=== PATIENT | female | born 1960 | race Caucasian/White ===

== ENCOUNTER 2020-06-25 09:28 | Outpatient (CLI) | payer MEDICARE, OTHER, SELFPAY ==
--- NOTE | ~2020-06-25 | MR_ITS ---
EXAMINATION: MR lumbar spine wo con DATE: 06/25/2020 10:53 INDICATION: Low back pain radiating down the right leg. TECHNIQUE: Magnetic resonance imaging (MRI) of the lumbar spine was performed without intravenous con trast. Sequences included sagittal T2-weighted FSE, sagittal T2-weighted FS FSE, sagittal T1-weighted FSE, and axial T2-weighted FSE. COMPARISON: Lumbar spine MRI 07/12/2016 FINDINGS: There is 15 degrees dextroscoliosis of lumbar spine. There is 3 mm retrolisthesis of L3 on L4. Vertebral body heights are normal. There is mildly decreased disc height at L3-L4. The distal spi nal cord signal intensity is normal. The conus medullaris is at L1. The following disc levels are spe cifically discussed: L1-L2: The disc does not extend beyond the endplate margin. There is mild bilateral facet joint osteo arthritis. There is no neural foraminal stenosis. There is no central canal stenosis. L2-L3: The disc is bulging. There is mild bilateral facet joint osteoarthritis. There is mild bilater al neural foraminal stenosis. There is mild central canal stenosis. L3-L4: The disc is bulging. There is mild bilateral facet joint osteoarthritis. There is mild bilater al neural foraminal stenosis. There is mild central canal stenosis. L4-L5: The disc is bulging. There is moderate bilateral facet joint osteoarthritis. There is mild morelia ateral neural foraminal stenosis. There is mild central canal stenosis. L5-S1: The disc is bulging. There is moderate bilateral facet joint osteoarthritis. There is no neura l foraminal stenosis. There is mild central canal stenosis. IMPRESSION: 1. Mild lumbar spondylosis, stable from 07/12/2016. Reviewed, dictated and finalized at location A. CASER
--- NOTE | ~2020-06-25 | MR_ITS ---
EXAMINATION: MR thoracic spine wo con DATE: 06/25/2020 10:50 INDICATION: Mid and low back pain. TECHNIQUE: Magnetic resonance imaging (MRI) of the thoracic spine was performed without intravenous c ontrast. Sagittal localizer T1-weighted FSE of the cervical spine was obtained. Thoracic spine sequen jose included sagittal T2-weighted FSE, sagittal T1-weighted FSE, sagittal T2-weighted FS FSE, and axi al T2-weighted FSE. COMPARISON: Thoracic spine MRI 07/29/2016 FINDINGS: There is 6 degrees dextrocurvature of thoracic spine and 15 degrees levoscoliosis of thorac olumbar spine. Vertebral body heights and intervertebral disc heights are normal. There is a hemangio ma in T3 vertebral body and left pedicle. The discs do not extend beyond the endplate margins. There is multilevel mild facet joint osteoarthritis. At T9-T10, there is severe left facet joint osteoarthr itis with mild left neural foraminal stenosis. No central canal stenosis. The spinal cord signal inte nsity is normal. The conus medullaris is at L1. IMPRESSION: 1. Mild thoracic spondylosis. 2. Thoracolumbar levoscoliosis. Reviewed, dictated and finalized at location A. GE PRESS OPERATOR
== END 2020-06-25 09:29 | disposition home or self-care (01) ==
PROVIDERS: PCP Chiropractor; Visit Provider Chiropractor
DX: M47.815 Spondylosis without myelopathy or radiculopathy, thoracolumbar region (principal); M47.817 Spondylosis without myelopathy or radiculopathy, lumbosacral region; M48.07 Spinal stenosis, lumbosacral region
CPT/HCPCS: 72146; 72148

== ENCOUNTER 2021-06-09 13:05 | Emergency (ER) | payer MEDICARE, OTHER, SELFPAY ==
[2021-06-09 13:20] VITALS: BP 114/70; PULSE 72; RESP 18; TEMP 36.5; O2SAT 100
--- NOTE | 2021-06-09 16:18 | PC.NURSE ---
Patient walked out of ED without difficulty and in no distress after talking with her PCP over the phone.
== END 2021-06-10 04:27 | disposition left against medical advice (07) ==
PROVIDERS: PCP Chiropractor
DX: Z53.21 Procedure and treatment not carried out due to patient leaving prior to being seen by health care provider (principal)
CPT/HCPCS: 99199

== ENCOUNTER → 2022-02-04 13:11 | Outpatient (CLI) | payer MEDICARE, OTHER, SELFPAY ==
--- NOTE | ~2022-02-04 | XR_ITS ---
[[id number] ] INDICATION: Rib pain after fall TECHNIQUE: Frontal projection of the upper ribs, frontal projection of the lower ribs, oblique projec tion of all the ribs, frontal inspiratory chest x-ray for interpretation. FINDINGS: There is a small left apical pneumothorax. There is a left eighth rib fracture. There is ex tensive subcutaneous emphysema of the neck and left chest wall. The left lower ribs are difficult to visualize due to subcutaneous emphysema. IMPRESSION: 1: Small left apical pneumothorax. 2: Acute mildly displaced left eighth rib fracture. 3: Extensive subcutaneous emphysema of the neck, supraclavicular locations in left chest wall. Reviewed, dictated and finalized at location B.
== END ==
PROVIDERS: PCP Physician Assistant; Visit Provider Physician Assistant
DX: R07.81 Pleurodynia (principal); J93.83 Other pneumothorax; S22.32XA Fracture of one rib, left side, initial encounter for closed fracture; J43.9 Emphysema, unspecified
CPT/HCPCS: 71111

== ENCOUNTER 2022-02-04 14:50 | Inpatient (IN) | payer MEDICARE, OTHER, SELFPAY ==
[2022-02-04] VITALS (9 sets, daily range): BP systolic 145–164; BP diastolic 60–91; PULSE 65–72; RESP 16–20; TEMP 36.4–37; O2SAT 97–100; BMI 21.1
--- NOTE | ~2022-02-04 | XR_ITS ---
XR chest 2V 02/06/2022 07:55 Indication: Follow-up left pneumothorax Procedure: 2 view chest Comparison: 02/05/2022 and 02/04/2022 Findings: There is a possible small residual left apical pneumothorax. There is improving subcutaneou s emphysema of the left chest wall. Left eighth rib fracture reidentified. Heart size normal. Small l eft pleural effusion/hemothorax. There is atherosclerosis. Impression: 1: Possible small residual left apical pneumothorax. 2: Left eighth rib fracture. 3: Improved subcutaneous emphysema of the left chest wall. Reviewed, dictated and finalized at location B. Impression: 1: Possible small residual left apical pneumothorax. 2: Left eighth rib fracture. 3: Improved subcutaneous emphysema of the left chest wall.
--- NOTE | ~2022-02-04 | XR_ITS ---
EXAMINATION: XR chest 2V DATE: 02/05/2022 09:18 INDICATION: Pneumothorax TECHNIQUE: PA and lateral views of the chest are obtained. COMPARISON: 02/04/2022 FINDINGS: A small left apical pneumothorax persists but is decreased in size. Again seen is a minimal ly displaced fracture of the left eighth rib. Extensive subcutaneous emphysema of the left chest wall and bilateral supraclavicular regions persists but is slightly improved. There is no pleural effusio n. There are minimal airspace opacities of the left mid and lower lung zones. The cardiomediastinal s ilhouette is normal. Bilateral breast implants are noted. Surgical clips in the right upper quadrant are likely from prior cholecystectomy. IMPRESSION: 1. Small left apical pneumothorax with decrease in size. 2. Widespread subcutaneous emphysema with interval improvement. 3. Minimal airspace opacities of the left lung base, consistent with atelectasis versus pneumonia or less likely pulmonary contusion. Reviewed, dictated and finalized at location A. IMPRESSION: 1. Small left apical pneumothorax with decrease in size. 2. Widespread subcutaneous emphysema with interval improvement. 3. Minimal airspace opacities of the left lung base, consistent with atelectasi s versus pneumonia or less likely pulmonary contusion.
[2022-02-04 15:22] LABS: Basophils Percent Auto 0.2 % (0.2-1.2); Eosinophils Absolute Auto 0.2 K/mm3 (0-0.3); Eosinophils Percent Auto 1.4 % (0-4.4); Hematocrit 37.4 % (37.0-47.0); Hemoglobin 12.6 g/dL (12.0-15.0); Immature Granulocyte Absolute 0.03 K/mm3 (0.00-0.031); Immature Granulocyte Percent A 0.2 % (0-0.5); Lymphocytes Absolute Auto 2.93 K/mm3 (0.9-3.2); Lymphocytes Percent Auto 23.6 % (18.3-44.2); Mean Corpuscular HGB Conc 33.7 g/dl (32-36); Mean Corpuscular Hemoglobin 31.5 pg (26-34); Mean Corpuscular Volume 93.5 fl (80-100); Mean Platelet Volume 10.4 fl (7.4-10.4); Monocytes Absolute Auto 0.4 K/mm3 (0.1-0.6); Monocytes Percent Auto 3.5 % (2.6-8.5); Neutrophils Absolute Auto 8.8 K/mm3 (1.3-6.7); Neutrophils Percent Auto 71.1 % (45.5-73.1); Platelet Count Result 279 k/mm3 (150-375); Red Cell Distribution Width 12.7 % (11.5-14.5); White Blood Count 12.4 K/mm3 (4.5-10.0)
[2022-02-04 15:31] LABS: Prothrombin Time 13.2 Seconds (11.1-14.7)
[2022-02-04 15:32] LABS: Partial Thromboplastin Time 34.3 SECONDS (22.3-36.8)
--- NOTE | 2022-02-04 15:43 | ED.GENADULT ---
HPI - General Adult General Chief complaint: Shortness of Breath/Dyspnea Stated complaint: presented from imaging center with collapsed lung Time Seen by Provider: 02/04/22 14:58 History of Present Illness HPI narrative: Patient is a 62-year-old female who presents ER from radiology with concerns of a pneumothorax. Patient reports 2 days ago she was walking when she tripped and fell striking her left chest wall on a counter. She felt a pop and fell to ground. Since then she can feel a click when she takes a deep breath. She has no difficulty breathing. She called her doctor do this clicking noise and got an x-ray that showed a left apical pneumothorax and a left sided eighth rib fracture. Patient has subcutaneous emphysema. Patient also has a cough with some coarse lung sounds. Patient reports she has had a cough with abnormal lung sounds since September 2021. Her doctor is working on referring her to a party plan dealer. She does have a CT surgeon at [facility] who has been doing low-dose quarterly CT scans to monitor some lung nodules. Patient smokes 6 cigarettes a day. Related Data Home Medications Medication Instructions Recorded Confirmed Benadryl 25 mg PO DAILY 02/04/22 02/04/22 Colace 100 mg PO DAILY PRN constipation 02/04/22 02/04/22 albuterol sulfate 90 mcg/actuation 90 mcg inhalation PRN PRN 02/04/22 02/04/22 aerosol inhaler Shortness Of Breath amitriptyline 100 mg tablet 100 mg DAILY 02/04/22 02/04/22 bupropion HCl 150 mg 24 hr tablet, 150 mg PO DAILY 02/04/22 02/04/22 extended release carvedilol 6.25 mg tablet 6.25 mg BID 02/04/22 02/04/22 celecoxib 100 mg capsule 100 mg BID 02/04/22 02/04/22 cyclobenzaprine 5 mg PO PRN PRN muscle spasms 02/04/22 02/04/22 ibuprofen 200 mg PO Q6H PRN Pain 02/04/22 02/04/22 losartan 50 mg tablet 50 mg DAILY 02/04/22 02/04/22 rabeprazole 20 mg tablet,delayed 20 mg PO DAILY 02/04/22 02/04/22 release simvastatin 10 mg tablet 10 mg DAILY 02/04/22 02/04/22 triamterene 37.5 37.5 tablet DAILY 02/04/22 02/04/22 mg-hydrochlorothiazide 25 mg tablet Allergies Allergy/AdvReac Type Severity Reaction Status Date / Time latex Allergy Intermediate RASH Verified 02/04/22 16:25 hydrocodone Allergy Mild RASH Verified 02/04/22 16:25 ciprofloxacin Allergy Unknown Unknown Verified 02/04/22 16:25 codeine Allergy Unknown Unknown Verified 02/04/22 16:25 Penicillins Allergy Unknown Unknown Verified 02/04/22 16:25 Pork Allergy Mild SWELLING Uncoded 02/04/22 16:25 Soy Protein Allergy Mild SWELLING Uncoded 02/04/22 16:25 Review of Systems Review of Systems: All systems reviewed & are unremarkable except as noted in HPI and below Constitutional: Constitutional: Denies chills, Denies fatigue and Denies fever(s) ENT: Denies nasal congestion and Denies sore throat Cardiovascular: Cardiovascular: Denies chest pain, Denies rapid heart rate and Denies radiating jaw, neck or arm pain Respiratory: Respiratory: Reports chest congestion, Reports cough (Chronic), Denies dyspnea and Denies wheezing Gastrointestinal: Gastrointestinal: Denies abdominal pain, Denies nausea and Denies vomiting Neurologic: Denies headache(s), Denies focal weakness and Denies numbness PMFSH Past Medical History Medical History (Updated 02/05/22 @ 19:10 by Nic Wilson MD) Anxiety Barretts esophagus Depression Diverticulitis Endometriosis Fibromyalgia History of breast cancer Hyperlipidemia Hypertension Migraines Mitral valve prolapse Surgical History Surgical History (Updated 02/04/22 @ 21:18 by Liat Patel NP) H/O bilateral mastectomy H/O breast reconstruction History of appendectomy History of section, classical History of cholecystectomy History of D&C History of hysterectomy S/P transposition of nerve Family History Family History Sibling Family history of gallbladder disease Hypertension Family history of lymphoma Family history of m
[2022-02-04 16:29] LABS: Anion Gap 9 mmol/L (8-16); Blood Urea Nitrogen 9 mg/dL (7-17); Calcium 8.8 mg/dL (8.4-10.2); Carbon Dioxide 26 mmol/L (22-30); Chloride 89 mmol/L (98-107); Estimated CRCL calculation 57 ml/min; Estimated Glomerular Filt Rate > 60; Glucose 119 mg/dL (65-110); Potassium 3.1 mmol/L (3.4-5.0); Sodium 124 mmol/L (137-145)
--- NOTE | 2022-02-04 17:13 | PM.IMHP ---
H&P: HPI History of Present Illness Date/Time: 02/04/22 17:13 Chief Complaint: Rib pain Narrative: This is a 62-year-old woman who presented to the emergency department with complaints of left-sided chest pain. She fell up against her counter hitting the back of her thorax 2 days ago. She has been experiencing a lot of pain in this region since then. She denies any loss of consciousness. She denies hitting any other part of her body when she fell. She was experiencing a clicking sensation when she was laying down supine and taking deep breaths in. She denies any shortness of breath or lightheadedness. She does have chest pain with deep inspiration. She denies any other prior history of falls causing trauma. She has never had a pneumothorax in the past. She does smoke and she gets a low-dose CT of her chest every 6-12 months at [facility]. She has been experiencing a cough for the last 4 months, and her primary care physician was planning to send her to a pipe assembly worker but this has not been arranged yet. Review of Systems Review of Systems: All systems reviewed & are unremarkable except as noted in HPI and below Constitutional: Constitutional: Denies chills and Denies fever(s) Eyes: Eyes: Denies change in vision ENT: Denies hearing loss, Denies neck pain and Denies sore throat Cardiovascular: Cardiovascular: Reports chest pain and Reports dyspnea Respiratory: Respiratory: Reports cough, Denies hemoptysis, Reports pain on inspiration, Reports dyspnea and Denies wheezing Gastrointestinal: Gastrointestinal: Denies abdominal pain and Denies change in bowel habits Genitourinary: Genitourinary: Denies hematuria and Denies dysuria Musculoskeletal: Musculoskeletal: Denies arthralgias, Denies joint swelling and Denies neck pain Allergic/Immunologic: Allergic/Immunologic: Denies wheezing PMFSH Past Medical History Medical History Anxiety Barretts esophagus Depression Diverticulitis Endometriosis Fibromyalgia Migraines Mitral valve prolapse Surgical History Surgical History History of appendectomy History of cholecystectomy History of hysterectomy Family History Family History Sibling Family history of gallbladder disease Hypertension Family history of lymphoma Family history of malignant neoplasm of breast in first degree relative Mother Asthma Father Family history of pancreatic cancer Other Cerebrovascular accident Diabetes mellitus Family history of cardiovascular disease Social History Social History (Updated 02/04/22 @ 17:19 by Raj Charles DO) Smoking packs per day: 0.5 Smoking cigarettes per day: 10.0 Smoking status: Current every day smoker Alcohol intake: current Meds Home Medications and Allergies Allergies Allergy/AdvReac Type Severity Reaction Status Date / Time latex Allergy Intermediate RASH Verified 02/04/22 16:25 hydrocodone Allergy Mild RASH Verified 02/04/22 16:25 ciprofloxacin Allergy Unknown Unknown Verified 02/04/22 16:25 codeine Allergy Unknown Unknown Verified 02/04/22 16:25 Penicillins Allergy Unknown Unknown Verified 02/04/22 16:25 Dairy Allergy Mild TROAT Uncoded 02/04/22 16:25 SWELLING Pork Allergy Mild SWELLING Uncoded 02/04/22 16:25 Soy Protein Allergy Mild SWELLING Uncoded 02/04/22 16:25 Vital Signs Vital Signs - 24 hr 02/04/22 14:53 02/04/22 15:08 02/04/22 15:08 Temperature 36.8 C Pulse Rate 72 65 Respiratory Rate 16 20 Blood Pressure 145/91 H 162/81 H Pulse Oximetry 99 100 100 Oxygen Delivery Room Air Room Air Exam Const: General: alert; No acute distress Orientation/consciousness: patient oriented x3 Limitations: no limitations HENMT: Head: normocephalic and atraumatic Ears: hearing grossly normal bilaterally General nose exam: Normal exte
--- NOTE | 2022-02-04 17:40 | ADMGEN ---
This patient, Kaitlynn Hall, was admitted to Medical Room 343-01. Patient/family oriented to hospital policies and general routines including ID bracelet, bed and alarms, visiting hours, pain management, procedures, bathroom and other care routines, personal items, smoking policy, room service/diet, and visiting hours. Information on how to activate the Rapid Response Team has been discussed. Patient/Family are encouraged to report perceived risks to care and to ask questions if they do not understand what they are told or what they should do.
[2022-02-04] MEDS: oxyCODONE/ACETAMINOPHEN (*CRX) 5-325 MG TABLET 1 TABLET PO (18:24)
[2022-02-04] MEDS: fentaNYL CITRATE INJ (*CRX) 100 MCG/2 ML VIAL 50 MCG IV PUSH ×2 (20:47→23:09)
--- NOTE | 2022-02-04 21:06 | PM.IMCN ---
Assessment and Plan Assessment and plan (1) Traumatic pneumothorax, initial encounter: Code(s): S27.0XXA - Traumatic pneumothorax, initial encounter Status: Acute Assessment and Plan: - the patient will have a repeat chest x-ray tomorrow. - Small pneumothorax managed by surgery. - Continue with analgesics (2) Hyponatremia: Code(s): E87.1 - Hypo-osmolality and hyponatremia Status: Acute Assessment and Plan: - the patient does have a history of cancer which may be the cause of her hyponatremia. Check the potassium and magnesium. urine osmolarity. urine sodium. - Most likely related to her triamterene with hydrochlorothiazide. - May consider starting IV fluids. - Encouraged the patient to drink water she only drinks soda.. - May consider Nephrology consult if her sodium continues to drop. (3) Tobacco abuse: Code(s): Z72.0 - Tobacco use Status: Acute Assessment and Plan: - Reinforce smoking cessation. - The patient has a history of breast cancer and has nodules on her lungs. And she stated that she is trying to quit smoking and is down to 6 cigarettes a day. (4) Hypertension: Code(s): I10 - Essential (primary) hypertension Status: Chronic Assessment and Plan: - P.r.n. hydralazine - continue losartan - hold triamterene with hydrochlorothiazide. (5) Depression: Code(s): F32.A - Depression, unspecified Status: Acute Assessment and Plan: - continue with bupropion - continue with amitriptyline (6) Hyperlipidemia: Code(s): E78.5 - Hyperlipidemia, unspecified Status: Acute Assessment and Plan: - continue with Zocor HPI Data of Consult Consult date: 02/04/22 Requesting Physician: Raj Charles DO Primary Care Provider: Yana Perrin, PA Consult Narrative Narrative: Kaitlynn Hall is a 62 year old female Who came to the hospital complaints of shortness of breath. The patient reports that 2 days ago she was walking and tripped over the she struck the left chest on the counter. she stated she felt a pop when she fell to the ground. She can feel a click when she takes a deep breath. She called her doctor and he ordered an x-ray for her that showed a left apical pneumothorax and a left-sided 8th rib fracture. Patient has subcutaneous emphysema. She also has a cough and coarse lung sounds. The patient continues to smoke and is down to 6 cigarettes a day. The patient has been getting routine CT scans due to lung nodules. Ribs with chest x-ray was read as the following 1: Small left apical pneumothorax. 2:? Acute mildly displaced left eighth rib fracture. 3:? Extensive subcutaneous emphysema of the neck, supraclavicular locations in left chest wall. surgery was called and admitted the patient. Her white count was noted to be 12.4. Her sodium is down to 124 potassium 3.1. The hospitalist group has been consulted due to the low sodium. The patient stated that she has been on triamterene. She also states that all she drinks soda and no water. The patient was admitted to observation per surgery and the hospitalist group was asked to consult on the patient on 02/04/2022 date of service. Review of Systems Review of Systems: See HPI All systems reviewed & are unremarkable except as noted in HPI and below Constitutional: Constitutional: Reports as per HPI and Reports no additional constitutional complaints Eyes: Eyes: Reports as per HPI and Reports no additional eye complaints ENT: Reports system reviewed and no additional complaints, except as documented and Reports Normal hearing present Cardiovascular: Cardiovascular: Reports no additional cardiovascular complaints Respiratory: Respiratory: Reports no additional respiratory complaints and Reports no additional respiratory complaints Gastrointestinal: Gastrointestinal: Reports as per HPI and Reports no additional gastrointestinal comp
[2022-02-04] MEDS: ALBUTEROL SULFATE NEB 2.5 MG/3 ML INH 5 MG INHALATION (21:07)
[2022-02-04] MEDS: IPRATROPIUM BR 0.02% INH SOLN 0.5 MG/2.5 ML VIAL INHALATION (21:07)
[2022-02-04 21:47] LABS: Sodium Urine Random 11 meq/L
[2022-02-04] MEDS: diphenhydrAMINE HCl CAP 25 MG CAPSULE PO (21:48)
[2022-02-04] MEDS: POTASSIUM CHLORIDE 20 MEQ PACKET (FOR LIQUID) PO (21:48)
[2022-02-04] MEDS: AMITRIPTYLINE HCL 25 MG TABLET 100 MG BY MOUTH (21:48)
[2022-02-04] MEDS: carvediloL 6.25 MG TABLET BY MOUTH (21:48)
[2022-02-04 22:13] LABS: Anion Gap 6 mmol/L (8-16); Blood Urea Nitrogen 10 mg/dL (7-17); Calcium 8.6 mg/dL (8.4-10.2); Carbon Dioxide 30 mmol/L (22-30); Chloride 90 mmol/L (98-107); Estimated CRCL calculation 63 ml/min; Estimated Glomerular Filt Rate > 60; Glucose 131 mg/dL (65-110); Magnesium 2.1 mg/dL (1.6-2.3); Potassium 3.2 mmol/L (3.4-5.0); Sodium 126 mmol/L (137-145)
[2022-02-05] VITALS (15 sets, daily range): BP systolic 110–123; BP diastolic 39–56; PULSE 62–80; RESP 16–18; TEMP 36.4–36.8; O2SAT 92–98
[2022-02-05] MEDS: fentaNYL CITRATE INJ (*CRX) 100 MCG/2 ML VIAL 50 MCG IV PUSH ×5 (02:33→19:56)
[2022-02-05] MEDS: ALBUTEROL SULFATE NEB 2.5 MG/3 ML INH (03:05)
[2022-02-05] MEDS: IPRATROPIUM BR 0.02% INH SOLN 0.5 MG/2.5 ML VIAL INHALATION ×4 (03:07→19:49)
[2022-02-05] MEDS: ALBUTEROL SULFATE NEB 2.5 MG/3 ML INH 5 MG INHALATION ×4 (03:07→19:49)
[2022-02-05 05:53] LABS: Basophils Percent Auto 0.2 % (0.2-1.2); Eosinophils Absolute Auto 0.2 K/mm3 (0-0.3); Eosinophils Percent Auto 1.9 % (0-4.4); Hematocrit 34.7 % (37.0-47.0); Hemoglobin 11.6 g/dL (12.0-15.0); Immature Granulocyte Absolute 0.02 K/mm3 (0.00-0.031); Immature Granulocyte Percent A 0.2 % (0-0.5); Lymphocytes Absolute Auto 2.06 K/mm3 (0.9-3.2); Lymphocytes Percent Auto 24.3 % (18.3-44.2); Mean Corpuscular HGB Conc 33.4 g/dl (32-36); Mean Corpuscular Hemoglobin 31.6 pg (26-34); Mean Corpuscular Volume 94.6 fl (80-100); Mean Platelet Volume 10.5 fl (7.4-10.4); Monocytes Absolute Auto 0.5 K/mm3 (0.1-0.6); Neutrophils Absolute Auto 5.7 K/mm3 (1.3-6.7); Neutrophils Percent Auto 67.4 % (45.5-73.1); Platelet Count Result 243 k/mm3 (150-375); Red Blood Count 3.67 M/mm3 (4.2-5.4); Red Cell Distribution Width 12.7 % (11.5-14.5); White Blood Count 8.5 K/mm3 (4.5-10.0)
[2022-02-05 06:04] LABS: Potassium 3.3 mmol/L (3.4-5.0)
[2022-02-05 06:19] LABS: Alanine Aminotransferase 14 U/L (6-35); Albumin Level 3.3 g/dL (3.5-5.1); Alkaline Phosphatase 75 U/L (38-126); Anion Gap 4 mmol/L (8-16); Aspartate Amino Transferase 23 U/L (14-36); Bilirubin,Total 0.2 mg/dL (0.2-1.3); Blood Urea Nitrogen 11 mg/dL (7-17); Calcium 8.3 mg/dL (8.4-10.2); Carbon Dioxide 32 mmol/L (22-30); Chloride 95 mmol/L (98-107); Estimated CRCL calculation 57 ml/min; Estimated Glomerular Filt Rate > 60; Glucose 102 mg/dL (65-110); Sodium 131 mmol/L (137-145)
--- NOTE | 2022-02-05 08:12 | PM.IMPN ---
Progress Note: A&P Assessment and Plan (1) Traumatic pneumothorax, initial encounter: Code(s): S27.0XXA - Traumatic pneumothorax, initial encounter Status: Acute Assessment and Plan: Left small pneumothorax with exstensive subcutaneous emphysema, present on admission. Repeat CXR wtih decreasing left apical pneumothorax and interval improvement in subcutaneous emphysema. New airspace opacity to left lung base noted, concerning for pneumonia. p Management per surgery. Continue with analgesics (2) Left rib fracture: Code(s): S22.32XA - Fracture of one rib, left side, initial encounter for closed fracture Status: Acute Assessment and Plan: Noted on imaging. Pain control with PRN medications. Add lidoderm 5% patch. (3) Hyponatremia: Code(s): E87.1 - Hypo-osmolality and hyponatremia Status: Acute Assessment and Plan: Sodium level 124 on admission. She reports no prior history of hyponatremia. Patient does have a history of cancer and is taking thiazide diuretics. Trend sodium level. Triamterene/HCTZ held. Patient appears to be autocorrecting, repeat sodium 131 today and patient is asymptomatic. Repleat potassium and magnesium as needed. urine osmolarity pending. urine sodium 11. Hold IVF for now. Consider Nephrology consult if her sodium drops. (4) Pneumonia: Code(s): J18.9 - Pneumonia, unspecified organism Status: Acute Assessment and Plan: CXR with possible left lower lobe pneumonia. Patient has increased sputum production, sputum color change and rhonchi in all gardner. No leukocytosis or fevers currently. Given the patient likely has underlying COPD with extensive smoking history, will initiate antibiotics. Start Rocephin 1 gram Q24 hours and Azithromycin 500 mg PO Q24 hours. Patient reports previously taking Keflex. Avoid fluoroquinolone use as patient has h/o aneurysm. (5) Tobacco abuse: Code(s): Z72.0 - Tobacco use Status: Acute Assessment and Plan: Reinforce smoking cessation. The patient has a history of breast cancer and has nodules on her lungs. And she stated that she is trying to quit smoking and is down to 6 cigarettes a day. (6) Hypertension: Code(s): I10 - Essential (primary) hypertension Status: Chronic Assessment and Plan: Continue losartan and coreg. P.r.n. hydralazine IV hold triamterene with hydrochlorothiazide. (7) Depression: Code(s): F32.A - Depression, unspecified Status: Chronic Assessment and Plan: continue with bupropion and amitriptyline. (8) Hyperlipidemia: Code(s): E78.5 - Hyperlipidemia, unspecified Status: Chronic Assessment and Plan: Continue with Zocor Plan CODE STATUS: FULL CODE Disposition: Home Time Spent With Patient Time with patient: 15 - 25 minutes Subjective Date/time seen: 02/05/22 08:12 Interval history: Patient is a 62 yo female with history of hypertension, tobacco dependence and presumed COPD. She presented to the ED for evaluation of left sided chest pain and shortness of breath. Patient was found to have small left apical pneumothorax, 8th left rib fracture and extensive subcutaneous emphysema. Hospitalist team has been asked to consult for hyponatremia. Patient reports persistent cough with now thick, cameron sputum. She has left-sided pain with movement and coughing, as well as left neck pain. No hemoptysis. No nausea, vomiting, anorexia, paresthesia or disorientation. Review of Systems Review of Systems: All systems reviewed & are unremarkable except as noted in HPI and below Exam Narrative: General: No acute respiratory distress. Thin adult female sitting up in bed. Mental Status: AAOx4 with clear speech. Cooperative. Skin: warm, dry and intact without rashes or lesions.? Fair.? No cyanosis noted to all extremities or digits.? No open wounds. HEENT: N
[2022-02-05] MEDS: carvediloL 6.25 MG TABLET BY MOUTH ×2 (09:48→19:56)
[2022-02-05] MEDS: PANTOPRAZOLE 40 MG TABLET PO (09:49)
[2022-02-05] MEDS: buPROPion HCL XL (24 HR) 150 MG TABCR PO (09:49)
[2022-02-05] MEDS: SIMVASTATIN 10 MG TABLET BY MOUTH (09:49)
[2022-02-05] MEDS: LOSARTAN POTASSIUM 50 MG TABLET BY MOUTH (09:49)
--- NOTE | 2022-02-05 10:56 | PM.PNGS ---
Progress Note: A&P Assessment and Plan (1) Traumatic pneumothorax, initial encounter: Code(s): S27.0XXA - Traumatic pneumothorax, initial encounter Status: Acute Assessment and Plan: Repeat chest x-ray this morning still showed a small left apical pneumothorax with slight decrease in size. Will continue to monitor. She now has a productive cough with CXR suggesting airspace opacities in the left lung base suggesting atelectasis vs pneumonia. Hospitalist initiated antibiotics. Will add incentive spirometry. Repeat chest x-ray tomorrow morning. (2) Left rib fracture: Code(s): S22.32XA - Fracture of one rib, left side, initial encounter for closed fracture Status: Acute Assessment and Plan: Continue analgesics for pain control. Encouraged her to try ambulating in the halls today. (3) Tobacco abuse: Code(s): Z72.0 - Tobacco use Status: Acute (4) Hyponatremia: Code(s): E87.1 - Hypo-osmolality and hyponatremia Status: Acute (5) Cough: Code(s): R05.9 - Cough, unspecified Status: Acute Plan I have discussed the patient's case and plan of care with Dr. Charles. Subjective Subjective Date/Time Seen: 02/05/22 10:56 Patient reports: still having pain (Left-sided chest and rib pain) Interval history: Patient seen and examined. She reports having more left lateral rib pain and chest pain gradually through the night and into this morning. She also reports a productive cough with cameron colored phlegm. No worsening shortness of breath. Review of Systems Review of Systems: All systems reviewed & are unremarkable except as noted in HPI and below Exam Const: General: alert; No acute distress Orientation/consciousness: patient oriented x3 Chest: Chest palpation & inspection: crepitus sternum (and left lateral chest, minimal) Resp: Effort & Inspection: normal respiratory effort and able to speak in complete sentences Auscultation: rales on the left at the base and diminished lung sounds on the left in the upper lung gradner Other: tenderness over posterior inferior ribcage Cardio: Rate: regular rate Rhythm: regular rhythm Objective Data Vital Signs Vital Signs: Vital Signs - 24 hr 02/04/22 14:53 02/04/22 15:08 02/04/22 15:08 Temperature 98.2 F Pulse Rate 72 65 Respiratory Rate 16 20 Blood Pressure 145/91 H 162/81 H Pulse Oximetry 99 100 100 Oxygen Delivery Room Air Room Air Oxygen Flow Rate 02/04/22 17:36 02/04/22 17:10 02/04/22 21:05 Temperature 97.6 F Pulse Rate 70 Respiratory Rate 18 Blood Pressure 164/79 H Pulse Oximetry 99 99 97 Oxygen Delivery Nasal Cannula Nasal Cannula Oxygen Flow Rate 1.5 1 02/04/22 21:05 02/04/22 21:12 02/04/22 20:00 Temperature Pulse Rate 68 67 Respiratory Rate 16 16 Blood Pressure Pulse Oximetry 99 Oxygen Delivery Nasal Cannula Oxygen Flow Rate 1 02/04/22 21:26 02/04/22 21:48 02/05/22 03:09 Temperature 98.6 F Pulse Rate 66 72 62 Respiratory Rate 16 18 Blood Pressure 146/60 H Pulse Oximetry 100 Oxygen Delivery Oxygen Flow Rate 02/05/22 03:20 02/05/22 05:52 02/05/22 07:50 Temperature 98.0 F Pulse Rate 65 65 66 Respiratory Rate 18 16 18 Blood Pressure 110/39 L Pulse Oximetry 98 Oxygen Delivery Oxygen Flow Rate 02/05/22 07:54 02/05/22 07:58 02/05/22 09:48 Temperature Pulse Rate 69 80 Respiratory Rate 18 Blood Pressure Pulse Oximetry 98 Oxygen Delivery Nasal Cannula Oxygen Flow Rate 1 Intake/Output Intake/Output: Intake & Output 02/02/22 02/03/22 02/04/22 02/05/22 23:59 23:59 23:59 23:59 Intake Total 360 790 Output Total 400 Balance 360 390 Meds/Results Medications: Active Medications Generic Name Dose Route Start Last Admin Trade Name Freq PRN Reason Stop Dose Admin Acetaminophen 650 mg 02/04/22 16:09 Acetaminophen 325 Mg Tablet PO Q4H PRN Mild P
[2022-02-05] MEDS: POTASSIUM CHLORIDE 20 MEQ PACKET (FOR LIQUID) PO (11:22)
[2022-02-05 11:39] LABS: Sodium 132 mmol/L (137-145)
[2022-02-05] MEDS: AZITHROMYCIN 250 MG TABLET 500 MG PO (12:22)
[2022-02-05] MEDS: LIDOCAINE 5% PATCH 1 PATCH TRANSDERM (12:22)
[2022-02-05] MEDS: AMITRIPTYLINE HCL 25 MG TABLET 100 MG BY MOUTH (19:55)
[2022-02-05] MEDS: diphenhydrAMINE HCl CAP 25 MG CAPSULE PO (19:56)
[2022-02-06] MEDS: fentaNYL CITRATE INJ (*CRX) 100 MCG/2 ML VIAL 50 MCG IV PUSH (00:59)
[2022-02-06] MEDS: ALBUTEROL SULFATE NEB 2.5 MG/3 ML INH 5 MG INHALATION ×2 (02:17→08:21)
[2022-02-06] MEDS: IPRATROPIUM BR 0.02% INH SOLN 0.5 MG/2.5 ML VIAL INHALATION ×2 (02:18→08:21)
[2022-02-06 02:20] VITALS: PULSE 69; RESP 18
--- NOTE | 2022-02-06 02:21 | PCRCNOTE ---
PT IS VERY CONGESTED WITH COARSE BREATH SOUNDS. PT STATES SHE IS HAVING A VERY HARD TIME COUGHING UP SECRETIONS. RT STARTED CPT VIA FLUTTER VALVE. PT WOULD BENEFIT FROM ACETYLCYSTEINE (MUCOMYST) TO HELP BREAK UP THE MUCOUS AND EXPECTORATE IT.
[2022-02-06 02:33] VITALS: PULSE 72; RESP 18
[2022-02-06 05:58] VITALS: BP 115/56; PULSE 88; RESP 14; TEMP 36.8; O2SAT 92
[2022-02-06] MEDS: oxyCODONE/ACETAMINOPHEN (*CRX) 5-325 MG TABLET 1 TABLET PO (06:35)
[2022-02-06 06:52] LABS: Basophils Percent Auto 0.2 % (0.2-1.2); Eosinophils Absolute Auto 0.2 K/mm3 (0-0.3); Eosinophils Percent Auto 2.6 % (0-4.4); Hematocrit 35.1 % (37.0-47.0); Hemoglobin 11.5 g/dL (12.0-15.0); Immature Granulocyte Absolute 0.04 K/mm3 (0.00-0.031); Immature Granulocyte Percent A 0.4 % (0-0.5); Lymphocytes Absolute Auto 2.22 K/mm3 (0.9-3.2); Lymphocytes Percent Auto 23.7 % (18.3-44.2); Mean Corpuscular HGB Conc 32.8 g/dl (32-36); Mean Corpuscular Volume 97.8 fl (80-100); Mean Platelet Volume 10.6 fl (7.4-10.4); Monocytes Absolute Auto 0.6 K/mm3 (0.1-0.6); Neutrophils Absolute Auto 6.3 K/mm3 (1.3-6.7); Neutrophils Percent Auto 67.1 % (45.5-73.1); Platelet Count Result 260 k/mm3 (150-375); Red Blood Count 3.59 M/mm3 (4.2-5.4); Red Cell Distribution Width 12.9 % (11.5-14.5); White Blood Count 9.4 K/mm3 (4.5-10.0)
[2022-02-06 07:10] LABS: Anion Gap 5 mmol/L (8-16); Blood Urea Nitrogen 14 mg/dL (7-17); Calcium 8.7 mg/dL (8.4-10.2); Carbon Dioxide 31 mmol/L (22-30); Chloride 96 mmol/L (98-107); Estimated CRCL calculation 57 ml/min; Estimated Glomerular Filt Rate > 60; Glucose 102 mg/dL (65-110); Sodium 132 mmol/L (137-145)
--- NOTE | 2022-02-06 07:59 | PM.IMPN ---
Progress Note: A&P Assessment and Plan (1) Traumatic pneumothorax, initial encounter: Code(s): S27.0XXA - Traumatic pneumothorax, initial encounter Status: Acute Assessment and Plan: Left small pneumothorax with exstensive subcutaneous emphysema, present on admission. Management per surgery. Repeat CXR wtih decreasing left apical pneumothorax and interval improvement in subcutaneous emphysema. New airspace opacity to left lung base noted, concerning for pneumonia. Antibiotics started 02/05 empirically. Continue with analgesics as below. (2) Left rib fracture: Code(s): S22.32XA - Fracture of one rib, left side, initial encounter for closed fracture Status: Acute Assessment and Plan: Noted on imaging. Pain control with PRN medications. Add lidoderm 5% patch. Stable. (3) Hyponatremia: Code(s): E87.1 - Hypo-osmolality and hyponatremia Status: Acute Assessment and Plan: Sodium level 124 on admission. She reports no prior history of hyponatremia. Patient does have a history of cancer and is taking thiazide diuretics. Triamterene/HCTZ held. Patient appears to be autocorrecting, repeat sodium 132 and stable. Patient is asymptomatic. Hyponatremia likely secondary to medications. Recommend holding Triamterene/HCTZ at discharge as BP tolerates. We discussed monitoring/recording BP at home. Would recommend repeat BMP in 1 week with PCP follow-up. urine osmolarity pending. urine sodium 11. Hold IVF for now. (4) Pneumonia: Code(s): J18.9 - Pneumonia, unspecified organism Status: Acute Assessment and Plan: CXR with possible left lower lobe pneumonia. Patient has increased sputum production, sputum color change and rhonchi in all gardner. No leukocytosis or fevers currently. Given the patient likely has underlying COPD with extensive smoking history, will initiate antibiotics. Day 2 of Rocephin 1 gram Q24 hours and Azithromycin 500 mg PO Q24 hours. Patient reports previously taking Keflex without reaction. If stable for discharge would recommend discharging on Cefuroxime 500 mg PO BID x 5 more days (total 7-day course). Avoid fluoroquinolone use as patient has h/o aneurysm. Patient has been referred to outpatient Pulmonology at [place] by her PCP, however, she has not yet scheduled an appointment. She has been counseled to schedule this for further pulmonary evaluation for COPD given her extensive smoking history. She has q 6 mo LDCT scans for monitoring of pulmonary nodules. (5) Tobacco abuse: Code(s): Z72.0 - Tobacco use Status: Acute Assessment and Plan: Reinforce smoking cessation. The patient has a history of breast cancer and has nodules on her lungs. And she stated that she is trying to quit smoking and is down to 6 cigarettes a day. She is taking Wellbutrin currently. (6) Hypertension: Code(s): I10 - Essential (primary) hypertension Status: Chronic Assessment and Plan: Continue losartan and coreg. P.r.n. hydralazine IV hold triamterene with hydrochlorothiazide for hyponatremia. (7) Depression: Code(s): F32.A - Depression, unspecified Status: Chronic Assessment and Plan: continue with bupropion and amitriptyline. (8) Hyperlipidemia: Code(s): E78.5 - Hyperlipidemia, unspecified Status: Chronic Assessment and Plan: Continue with Zocor Plan CODE STATUS: FULL CODE Disposition: Home Additional Plan Thank you for allowing me to participate in your patient's care. Please do not hesitate to call for questions. Time Spent With Patient Time with patient: 15 - 25 minutes (>50% spent time for patient education. ) Subjective Date/time seen: 02/06/22 07:59 Interval history: Patient is a 62 yo female with history of hypertension, tobacco dependence and presumed COPD. She presented to the ED for evaluation of left sided chest pain and s
[2022-02-06 08:22] VITALS: PULSE 77; RESP 18; O2SAT 94
[2022-02-06 08:40] VITALS: PULSE 78; RESP 18
[2022-02-06] MEDS: AZITHROMYCIN 250 MG TABLET 500 MG PO (09:05)
[2022-02-06] MEDS: SIMVASTATIN 10 MG TABLET BY MOUTH (09:05)
[2022-02-06] MEDS: buPROPion HCL XL (24 HR) 150 MG TABCR PO (09:05)
[2022-02-06] MEDS: LOSARTAN POTASSIUM 50 MG TABLET BY MOUTH (09:05)
[2022-02-06 09:06] VITALS: PULSE 88
[2022-02-06] MEDS: PANTOPRAZOLE 40 MG TABLET PO (09:06)
[2022-02-06] MEDS: LIDOCAINE 5% PATCH 1 PATCH TRANSDERM (09:06)
[2022-02-06] MEDS: carvediloL 6.25 MG TABLET BY MOUTH (09:06)
--- NOTE | 2022-02-06 11:43 | PM.DS ---
DS: Admitting Diagnosis Discharge Date 02/06/2022 Admitting Diagnosis traumatic pneumothorax, left rib fracture, hyponatremia, tobacco abuse DS: Discharge Diagnosis Discharge Diagnosis (1) Traumatic pneumothorax, initial encounter: Code(s): S27.0XXA - Traumatic pneumothorax, initial encounter Status: Acute (2) Fracture of rib: Code(s): S22.39XA - Fracture of one rib, unspecified side, initial encounter for closed fracture Status: Acute (3) Pneumonia: Code(s): J18.9 - Pneumonia, unspecified organism Status: Acute (4) Hyponatremia: Code(s): E87.1 - Hypo-osmolality and hyponatremia Status: Acute (5) Tobacco abuse: Code(s): Z72.0 - Tobacco use Status: Acute DS: Summary Hospital Course Reason for hospitalization: left pneumothorax Hospital Course: this is a 62-year-old woman who presented to the emergency department on 02/04/2022 with complaints of pain on her rib cage. She had a fall about 2 days prior to this and hit the side of her ribcage on the side of her counter. She had no other injuries to complain of. X-ray in the emergency department showed evidence of a left pneumothorax. This appeared very small and did not require chest tube placement at that time and patient was showing no signs of labored breathing or hypoxia. She was admitted for further management and hospitalist was consulted due to her hyponatremia and chronic cough. X-ray did show some possible signs of pneumonia therefore she was started on antibiotics. Her chest x-ray on 02/05 showed slight improvement of pneumothorax. A repeat chest x-ray on 02/06/2022 showed near complete resolution of the left pneumothorax. She remained hemodynamically stable throughout her hospital stay and was not complaining of any labored breathing. She was discharged on 02/06/2022. Time spent discussing smoking cessation with patient: 3 to 10 minutes Status at Discharge Functional status at discharge: independent ambulation Overall status at discharge: patient is back to baseline Time Spent with Patient Time attestation: Total time spent providing and/or coordinating discharge services: Time spent: Less than 30 minutes Exam Const: General: cooperative, no acute distress and alert Orientation/consciousness: patient oriented x3 Chest: Chest palpation & inspection: normal inspection of the chest Resp: Effort & Inspection: normal respiratory effort and Actively coughing productive Auscultation: clear to auscultation bilaterally Cardio: Rate: regular rate Rhythm: regular rhythm Heart sounds: S1 normal heart sound present and S2 normal heart sound present GI: Inspection: non-distended GI Palp: Yes Soft to palpation and No Tenderness to palpation present (GI) Neuro: General: patient oriented x3, moves all extremities and CN's II-XI intact bilaterally DS: Data Data Completed and Pending Labs on day of discharge: Labs from last 24 hours 02/06/22 02/06/22 06:30 06:30 WBC 9.4 RBC 3.59 L Hgb 11.5 L Hct 35.1 L MCV 97.8 MCH 32.0 MCHC 32.8 RDW 12.9 Plt Count 260 MPV 10.6 H Immature Gran % (Auto) 0.4 Neut % (Auto) 67.1 Lymph % (Auto) 23.7 [place] % (Auto) 6.0 Eos % (Auto) 2.6 Baso % (Auto) 0.2 Lymph # (Auto) 2.22 [place] # (Auto) 0.6 Eos # (Auto) 0.2 Baso # (Auto) 0.0 Abs Immat Gran (auto) 0.04 H Absolute Neuts (auto) 6.3 Absolute Nucleated RBC 0.0 Nucleated RBC % 0.0 Sodium 132 L Potassium 4.0 Chloride 96 L Carbon Dioxide 31 H Anion Gap 5 L BUN 14 Creatinine 0.90 Estim Creat Clear Calc 57 Estimated GFR > 60 Glucose 102 Calcium 8.7 Imaging Radiologist's impression: ITS Impressions Chest X-Ray 02/05/22 09:22 IMPRESSION: 1. Small left apical pneumothorax with decrease in size. 2. Widespread subcutaneous emphysema with interval improvement. 3. Minimal airspace opacities of the left lung base, consistent with at
[2022-02-06] MEDS: ACETAMINOPHEN 325 MG TABLET 650 MG PO (13:50)
[2022-02-08 07:07] LABS: Osmolality, Urine 123 mOsm/kg (50-1200)
== END 2022-02-06 14:10 | disposition home or self-care (01) | DRG 199 ==
LOC: ANHED 16:17 → ANH3MED 16:59
PROVIDERS: Nurse Practitioner; Nurse Practitioner Family; Admitting Provider Surgery; Emergency Provider Emergency Medicine; PCP Physician Assistant; Visit Provider Surgery
DX: S27.0XXA Traumatic pneumothorax, initial encounter (principal); J18.9 Pneumonia, unspecified organism; S22.32XA Fracture of one rib, left side, initial encounter for closed fracture; E87.1 Hypo-osmolality and hyponatremia; T79.7XXA Traumatic subcutaneous emphysema, initial encounter; I10 Essential (primary) hypertension; I34.1 Nonrheumatic mitral (valve) prolapse; K22.70 Barrett's esophagus without dysplasia; K57.30 Diverticulosis of large intestine without perforation or abscess without bleeding; E78.5 Hyperlipidemia, unspecified; M79.7 Fibromyalgia; R91.8 Other nonspecific abnormal finding of lung field; F17.210 Nicotine dependence, cigarettes, uncomplicated; F41.9 Anxiety disorder, unspecified; W01.198A Fall on same level from slipping, tripping and stumbling with subsequent striking against other object, initial encounter; Z85.3 Personal history of malignant neoplasm of breast; Z90.13 Acquired absence of bilateral breasts and nipples; Z90.49 Acquired absence of other specified parts of digestive tract; Z90.710 Acquired absence of both cervix and uterus
CPT/HCPCS: 36415; 71046; 80048; 80053; 83735; 83935; 84295; 84300; 85025; 85610; 85730; 94640; 94667; 96365; 96374; 96376; 99285; A9270; G0378; J0696; J3010

== ENCOUNTER → 2022-03-08 13:39 | Outpatient (CLI) | payer MEDICARE, OTHER, SELFPAY ==
--- NOTE | ~2022-03-08 | XR_ITS ---
EXAMINATION: XR chest 2V DATE: 03/08/2022 13:51 INDICATION: Left rib fracture. TECHNIQUE: Frontal and lateral views of the chest were obtained. COMPARISON: Chest 2 views 02/06/2022 FINDINGS: There is mild scarring at the lung apices. A calcified left lung nodule and calcified media stinal lymph nodes are consistent with old granulomatous disease. No pleural effusion or pneumothorax . The heart size is normal. There is a fracture of left eighth rib. There are surgical clips in the a xillae. IMPRESSION: 1. Left eighth rib fracture. 2. Stable mild scarring at the lung apices. Reviewed, dictated and finalized at location A.
== END ==
PROVIDERS: PCP Physician Assistant; Visit Provider Physician Assistant
DX: J18.9 Pneumonia, unspecified organism (principal); S22.32XA Fracture of one rib, left side, initial encounter for closed fracture; J93.9 Pneumothorax, unspecified
CPT/HCPCS: 71046

== ENCOUNTER → 2023-05-19 10:05 | Outpatient (CLI) | payer MEDICARE, SELFPAY ==
--- NOTE | ~2023-05-19 | XR_ITS ---
Right Knee Technique: AP, lateral, and sunrise views were obtained. Clinical History: Pain Findings: No fracture or dislocation is seen. Osseous alignment is anatomic. Joint spaces are preserv ed without degenerative or erosive change. Soft tissues are unremarkable. No joint effusion is seen. Impression: Unremarkable right knee radiographs. Reviewed, dictated and finalized at location . 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
--- NOTE | ~2023-05-19 | XR_ITS ---
Clinical Indication: Chest pain PA and lateral views of the chest: Comparison: 03/08/2022 Findings: The lungs are clear, without evidence of focal consolidation or pleural effusion. Cardiome diastinal silhouette is within normal limits. Bones and soft tissues are unremarkable. Impression: Normal chest. Reviewed, dictated and finalized at location . 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
== END ==
PROVIDERS: PCP Physician Assistant; Visit Provider Physician Assistant
DX: R07.81 Pleurodynia (principal); M25.561 Pain in right knee
CPT/HCPCS: 71046; 73562

== ENCOUNTER 2023-10-23 08:43 | Outpatient (CLI) | payer MEDICARE, SELFPAY | END 2023-10-23 08:44 | PROVIDERS: PCP Physician Assistant; Visit Provider Physician Assistant | DX: M25.561 Pain in right knee (principal); M25.562 Pain in left knee | CPT/HCPCS: 73562 ==

== ENCOUNTER 2024-03-16 11:39 | Outpatient (CLI) | payer MEDICARE, SELFPAY ==
--- NOTE | ~2024-03-16 | XR_ITS ---
AP view of the pelvis and AP and lateral views of the left hip Clinical history: Pain Findings: No acute fracture or dislocation is seen. Osseous alignment is anatomic. Bilateral hip and SI joint spaces are preserved. Soft tissues are unremarkable. Impression: No significant abnormality is seen. Reviewed, dictated and finalized at [facility]. Impression: No significant abnormality is seen.
--- NOTE | ~2024-03-16 | XR_ITS ---
AP and oblique views of the left ribs, and PA chest radiograph Clinical History: Pain COMPARISON: 05/19/2023 Findings: Fracture left posterior seventh rib noted, likely acute. Lungs are clear, without focal con solidation or pleural effusion. Cardiomediastinal contour is within normal limits. Soft tissues are u nremarkable. Impression: Left posterior seventh rib fracture, likely acute. Correlate for point tenderness. Clear lungs. Reviewed, dictated and finalized at location . Impression: Left posterior seventh rib fracture, likely acute. Correlate for point tenderne ss. Clear lungs.
--- NOTE | ~2024-03-16 | XR_ITS ---
Lumbosacral Spine: AP and lateral views Clinical History: Pain Findings: Dextroscoliosis noted. No acute fracture evident. There is minimal grade 1 retrolisthesis o f L3 over L4. There is advanced facet arthropathy throughout the lumbar spine. There is moderate dege nerative disc change at L1-L2 and L2-L3. The sacroiliac joints are normally outlined. Impression: Dextroscoliosis and minimal grade 1 retrolisthesis of L3 over L4. Moderate degenerative spondylosis, as above. Reviewed, dictated and finalized at location M. Impression: Dextroscoliosis and minimal grade 1 retrolisthesis of L3 over L4. Moderate degenerative spondylosis, as above.
== END 2024-03-16 11:40 | disposition home or self-care (01) ==
LOC: MICIMG 11:41
PROVIDERS: PCP Physician Assistant; Visit Provider Physician Assistant
DX: M41.87 Other forms of scoliosis, lumbosacral region (principal); M47.816 Spondylosis without myelopathy or radiculopathy, lumbar region; S22.32XA Fracture of one rib, left side, initial encounter for closed fracture; X58.XXXA Exposure to other specified factors, initial encounter; R52 Pain, unspecified; Z91.81 History of falling
CPT/HCPCS: 71101; 72100; 73502

== ENCOUNTER 2024-04-19 09:05 | Outpatient (CLI) | payer MEDICARE, SELFPAY ==
--- NOTE | ~2024-04-19 | XR_ITS ---
EXAMINATION: XR chest 2V DATE: 04/19/2024 09:15 INDICATION: Cough, wheezing, fever, shortness of breath. TECHNIQUE: Frontal and lateral views of the chest were obtained. COMPARISON: Chest 2 views 05/19/2023 FINDINGS: There is mild scarring at right lung apex. There is a small left pneumothorax. No pleural e ffusion or pneumothorax. The heart size is normal. There are old healed left rib fractures. Breast im plants are noted. IMPRESSION: 1. Small left pneumothorax. Reviewed, dictated and finalized at location B. IMPRESSION: 1. Small left pneumothorax.
== END 2024-04-19 09:06 | disposition home or self-care (01) ==
PROVIDERS: PCP Physician Assistant; Visit Provider Physician Assistant
DX: J93.9 Pneumothorax, unspecified (principal); R50.9 Fever, unspecified
CPT/HCPCS: 71046

== ENCOUNTER 2024-04-19 19:07 | Emergency (ER) | payer MEDICARE, SELFPAY ==
[2024-04-19] VITALS (7 sets, daily range): BP systolic 138–155; BP diastolic 75–110; PULSE 60–88; RESP 14–18; TEMP 36.6–36.9; O2SAT 97–100
--- NOTE | ~2024-04-19 | XR_ITS ---
XR chest 2V Ordering provider: Raleigh Patel MD History: 64 years Female with . RULE OUT WORSENING PNEUMOTHORAX . Comparison: April 19, 2024 FINDINGS: MEDIASTINUM: The cardiac silhouette is not enlarged. LUNGS: No infiltrates, or effusions . Left apical pneumothorax unchanged from previous examination. OTHER: No free air under the diaphragm. Old healed fractures in the ribs are seen in the mid thorax. Levoscoliosis in the thoracolumbar area. IMPRESSION: Left apical pneumothorax unchanged from previous examination. Reviewed, dictated and finalized at location A.
--- NOTE | ~2024-04-19 | CT_ITS ---
CTA chest PE protocol Ordering provider: Raleigh Patel MD History: 64 years Female with . cough, small spontaneous pneumothorax . Comparison: None. Technique: CT angiogram chest was performed following timed intravenous injection of contrast. Thin s lice axial images and reformatted coronal images were obtained. Three dimensional reformatted images of the chest were also obtained using a [employer] workstation. . Automated exposure control and iterati ve reconstruction technique were employed. The dose-length product was 273.10 mGy-cm. 100 ML Omnipaqu e 350 was given IV. Findings: PULMONARY ARTERIES: No pulmonary embolus. VISUALIZED THORACIC INLET: Normal. Small nodule in the left lobe of the thyroid. Ultrasound evaluatio n advised. Bilateral breast implants. MEDIASTINUM: Aorta/coronary arteries: Mild atheromatous disease. Ascending aorta measures 4 cm. Heart/other: The heart is slightly enlarged. Lymph nodes: No mediastinal or hilar adenopathy. LUNGS: Small left apical pneumothorax is seen medially with minimal pneumothorax seen anteriorly in the left lingular area. Minimal Atelectatic changes seen in the lingula.. No pulmonary nodules or masses. No infiltrates or effusions. Air bubbles are adjacent to one of the fractures in the left chest. VISUALIZED UPPER ABDOMEN: the visualized upper abdomen is normal. MUSCULOSKELETAL: Soft tissues: The superficial soft tissues are normal. Bones: Age appropriate degenerative changes of the spine. Healing fractures in the left eighth, nint h, 11th and 12th ribs. IMPRESSION: 1. No pulmonary embolism. 2. Left apical pneumothorax seen medially with no pneumothorax seen anteriorly in the area of the li ngula. 3. Multiple rib fractures in the left lower thorax. Reviewed, dictated and finalized at location A. IMPRESSION: 1. No pulmonary embolism. 2. Left apical pneumothorax seen medially with no pneumothorax seen anteriorly in the area of the lingula. 3. Multiple rib fractures in the left lower thorax.
--- NOTE | 2024-04-19 20:20 | ECG_ITS ---
Test Date: 2024-04-19 20:32:35 Measurements Intervals [place] Rate: 68 P: 61 TN: 218 QRS: 54 QRSD: 108 T: 65 QT: 408 QTc: 437 Interpretive Statements SINUS RHYTHM WITH FIRST DEGREE AV BLOCK INCOMPLETE RIGHT BUNDLE BRANCH BLOCK [90+ ms QRS DURATION, TERMINAL R IN V1/V2, 40+ ms S IN I/aVL/V4/V5/V6] NONSPECIFIC ST & T-WAVE ABNORMALITY No previous ECG available for comparison Electronically Signed On 04-20-2024 09:40:08 CDT by Sada Capellan M.D.
--- NOTE | 2024-04-19 20:33 | ED.GENADULT ---
HPI - General Adult General Chief complaint: Recheck/Abnormal Lab/Rx Stated complaint: poss pnuemo abdnormal xray Time Seen by Provider: 04/19/24 20:20 History of Present Illness HPI narrative: The patient is a 64-year-old female who presents emergency department with chief complaint of pneumothorax. Patient reports that she has had a cough for some time does report that he in early March she fall broke a rib but did not have a pneumothorax that time patient does report that in the past she has had a pneumothorax status post a single rib fracture the patient states that she is our primary care provider today who ordered a chest x-ray that showed a small apical pneumothorax. The patient reports that she is continuing to cough patient reports subjective fevers at home Related Data Home Medications Medication Instructions Recorded Confirmed Benadryl 25 mg PO DAILY 02/04/22 02/04/22 Colace 100 mg PO DAILY PRN constipation 02/04/22 02/04/22 albuterol sulfate 90 mcg/actuation 90 mcg inhalation PRN PRN 02/04/22 02/04/22 aerosol inhaler Shortness Of Breath amitriptyline 100 mg tablet 100 mg DAILY 02/04/22 02/04/22 bupropion HCl 150 mg 24 hr tablet, 150 mg PO DAILY 02/04/22 02/04/22 extended release carvedilol 6.25 mg tablet 6.25 mg BID 02/04/22 02/04/22 celecoxib 100 mg capsule 100 mg BID 02/04/22 02/04/22 cyclobenzaprine 5 mg PO PRN PRN muscle spasms 02/04/22 02/04/22 ibuprofen 200 mg PO Q6H PRN Pain 02/04/22 02/04/22 losartan 50 mg tablet 50 mg DAILY 02/04/22 02/04/22 rabeprazole 20 mg tablet,delayed 20 mg PO DAILY 02/04/22 02/04/22 release simvastatin 10 mg tablet 10 mg DAILY 02/04/22 02/04/22 Allergies Allergy/AdvReac Type Severity Reaction Status Date / Time latex Allergy Intermediate RASH Verified 02/04/22 16:25 hydrocodone Allergy Mild RASH Verified 02/04/22 16:25 ciprofloxacin Allergy Unknown Unknown Verified 02/04/22 16:25 codeine Allergy Unknown Unknown Verified 02/04/22 16:25 Penicillins Allergy Unknown Unknown Verified 02/04/22 16:25 Pork Allergy Mild SWELLING Uncoded 02/04/22 16:25 Soy Protein Allergy Mild SWELLING Uncoded 02/04/22 16:25 Review of Systems Review of Systems: A 10 system review of systems was completed on the patient and is negative except for what is stated in the HPI. Nursing and ancillary documentation was reviewed. [facility] Past Medical History Medical History Anxiety Barretts esophagus Depression Diverticulitis Endometriosis Fibromyalgia History of breast cancer Hyperlipidemia Hypertension Migraines Mitral valve prolapse Surgical History Surgical History H/O bilateral mastectomy H/O breast reconstruction History of appendectomy History of section, classical History of cholecystectomy History of D&C History of hysterectomy S/P transposition of nerve Family History Family History Sibling Family history of gallbladder disease Hypertension Family history of lymphoma Family history of malignant neoplasm of breast in first degree relative Mother Asthma Father Family history of pancreatic cancer Other Cerebrovascular accident Diabetes mellitus Family history of cardiovascular disease Social History Social History Social History: the patient stated that she his down to 1 cigarette a day. She has 1 daughter. she does not have a durable power corrugator supervisor for healthcare. she is . 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 HEAD: Normocephalic, atraumatic. EYES: PERRLA and EOMI. ENT: Nares clear, no rhinorrhea or epistaxis. Mucous membranes moist. NECK: Supple. CHEST: Scattered wheezes to auscultation. No respiratory distress. HEART: Regular rate and rhythm. No murmur heard. Normal peripheral pulses. ABDOMEN: Soft, nontender, nondistended, normal active bowel sounds. EXTREMITIES: Normal range of motion. No edema. SKIN: Warm, dry, no rash. NEURO: No focal deficits. Alert and oriented x3. PSYCH: Normal mood and affect. Course Vital Signs Vital signs: Vital Signs Temperature 36.9 C 04/19/24 19:17 Pulse Rate 88 04/19/24 19:17 Respiratory Rate 14 04/19/24 19:17 Blood Pressure 155/87 H 04/19/24 19:17 Pulse Oximetry 97 04/19/24 19:17 Oxygen Delivery Room Air 04/19/24 19:17 Temperature 36.6 C 04/19/24 19:56 Pulse Rate 77 04/19/24 19:56 Respiratory Rate 18 04/19/24 19:58 Blood Pressure 154/110 H 04/19/24 19:56 Pulse Oximetry 100 04/19/24 19:58 Oxygen Delivery Non-Rebreather Mask 04/19/24 19:57 Oxygen Flow Rate 15 04/19/24 19:58 Medical Decision Making MDM Narrative Medical decision making narrative: Differential diagnosis includes pneumothorax, rib fractures, COVID-19, pneumonia Chest x-ray showed a very small apical pneumothorax that is unchanged in size from the outpatient x-ray. CTA of the chest showed several rib fractures Patient is otherwise hemodynamically stable her potassium was a little low and the patient was given IV the replacement. The case was discussed with Dr. Vasquez of the surgical service who will follow the patient as an outpatient as the pneumothorax is small enough that does not require chest tube and given that is not increasing in size can be treated as an outpatient. Vital Signs Vital Signs: Vital Signs Temperature 36.9 C 04/19/24 19:17 Pulse Rate 88 04/19/24 19:17 Respiratory Rate 14 04/19/24 19:17 Blood Pressure 155/87 H 04/19/24 19:17 Pulse Oximetry 97 04/19/24 19:17 Oxygen Delivery Room Air 04/19/24 19:17 Temperature 36.6 C 04/19/24 19:56 Pulse Rate 77 04/19/24 19:56 Respiratory Rate 18 04/19/24 19:58 Blood Pressure 154/110 H 04/19/24 19:56 Pulse Oximetry 100 04/19/24 19:58 Oxygen Delivery Non-Rebreather Mask 04/19/24 19:57 Oxygen Flow Rate 15 04/19/24 19:58 Lab Data 04/19/24 20:29 10/28/24 20:29 Labs: Lab Results 04/19/24 04/19/24 Range/Units 20:29 20:37 WBC 9.4 (4.5-10.0) K/mm3 RBC 4.15 L (4.2-5.4) M/mm3 Hgb 13.1 (12.0-15.0) g/dL Hct 39.1 (37.0-47.0) % MCV 94.2 (80-100) fl MCH 31.6 (26-34) pg MCHC 33.5 (32-36) g/dl RDW 13.3 (11.5-14.5) % Plt Count 231 (150-375) k/mm3 MPV 9.8 (7.4-10.4) fl Immature Gran % (Auto) 0.2 (0-0.5) % Neut % (Auto) 62.3 (45.5-73.1) % Lymph % (Auto) 26.9 (18.3-44.2) % Turner % (Auto) 6.9 (2.6-8.5) % Eos % (Auto) 3.4 (0-4.4) % Baso % (Auto) 0.3 (0.2-1.2) % Lymph # (Auto) 2.52 (0.9-3.2) K/mm3 Turner # (Auto) 0.7 H (0.1-0.6) K/mm3 Eos # (Auto) 0.3 (0-0.3) K/mm3 Baso # (Auto) 0.0 (0.0-0.1) K/mm3 Abs Immat Gran (auto) 0.02 (0.00-0.031) K/mm3 Absolute Neuts (auto) 5.8 (1.3-6.7) K/mm3 Absolute Nucleated RBC 0.000 (0.0-0.012) K/mm3 Nucleated RBC % 0.0 (0.0-0.2) % PT 12.9 (11.1-14.7) Seconds INR 0.9 APTT 28.6 (22.3-36.8) Seconds Sodium 136 L (137-145) mmol/L Potassium 2.8 L* (3.4-5.0) mmol/L Chloride 98 (98-107) mmol/L Carbon Dioxide 29 (22-30) mmol/L Anion Gap 9 (4-12) mmol/L BUN 12 (7-17) mg/dL Creatinine 1.00 (0.7-1.0) mg/dL Estim Creat Clear Calc 51 ml/min Estimated GFR 55 L (59 - ) Glucose 107 (65-110) mg/dL Calcium 9.0 (8.4-10.2) mg/dL Magnesium 1.8 (1.6-2.3) mg/dL Total Bilirubin 0.4 (0.2-1.3) mg/dL AST 24 (14-36) U/L ALT 19 (6-35) U/L Alkaline Phosphatase 81 (38-126) U/L Troponin I < 0.012 (0.000-0.034) ng/mL NT-Pro-B Natriuret Pep 360 H (19.9-100) pg/mL Total Protein 8.0 (6.3-8.2) g/dL Albumin 4.1 (3.5-5.1) g/dL Lipase 190 (23-300) U/L Influenza A (RT-PCR) Negative (Negative) Influenza B (RT-PCR) Negative (Negative) RSV (RT-PCR) Negative (Negative) SARS-CoV-2 RNA (RT-PCR) Positive A (Negative) Discharge Plan Discharge Clinical Impression: Pneumothorax, Multiple fractures of ribs, COVID-19 Patient Disposition: Home, Self-Care Condition: Stable Instructions: Antibiotic Form, Spontaneous Pneumothorax (ED), Rib Fracture (ED), COVID-19 (Coronavirus Disease 2019) (ED) Additional Instructions: Please follow-up with Dr. Alonso in the office. You need a repeat chest x-ray in about a week Prescriptions: New benzonatate 200 mg capsule 200 mg PO TID PRN (Reason: cough) Qty: 21 0RF oxycodone-acetaminophen [Percocet] 5-325 mg tablet 1 tablet PO Q6H PRN (Reason: pain) 3 Days Qty: 12 0RF No Action losartan 50 mg tablet 50 mg DAILY carvedilol 6.25 mg tablet 6.25 mg BID rabeprazole 20 mg tablet,delayed release (DR/EC) 20 mg PO DAILY simvastatin 10 mg tablet 10 mg DAILY albuterol sulfate 90 mcg/actuation HFA aerosol inhaler 90 mcg INHALATION PRN PRN (Reason: Shortness Of Breath) celecoxib 100 mg capsule 100 mg BID amitriptyline 100 mg tablet 100 mg DAILY bupropion HCl 150 mg tablet extended release 24 hr 150 mg PO DAILY Benadryl 25 mg PO DAILY Colace 100 mg PO DAILY PRN (Reason: constipation) cyclobenzaprine 5 mg PO PRN PRN (Reason: muscle spasms) ibuprofen 200 mg PO Q6H PRN (Reason: Pain) cefuroxime axetil 500 mg tablet 500 mg PO BID Qty: 10 0RF oxycodone-acetaminophen [Percocet] 5-325 mg tablet 1 tablet PO Q4H PRN (Reason: pain) Qty: 10 0RF Follow-up/Referrals: Fe Alonso MD [Physician] - Marychuy,MANOLO Millan [Primary Care Provider] - Time of Disposition: 23:46
[2024-04-19 20:34] LABS: Basophils Percent Auto 0.3 % (0.2-1.2); Eosinophils Absolute Auto 0.3 K/mm3 (0-0.3); Eosinophils Percent Auto 3.4 % (0-4.4); Hematocrit 39.1 % (37.0-47.0); Hemoglobin 13.1 g/dL (12.0-15.0); Immature Granulocyte Absolute 0.02 K/mm3 (0.00-0.031); Immature Granulocyte Percent A 0.2 % (0-0.5); Lymphocytes Absolute Auto 2.52 K/mm3 (0.9-3.2); Lymphocytes Percent Auto 26.9 % (18.3-44.2); Mean Corpuscular HGB Conc 33.5 g/dl (32-36); Mean Corpuscular Hemoglobin 31.6 pg (26-34); Mean Corpuscular Volume 94.2 fl (80-100); Mean Platelet Volume 9.8 fl (7.4-10.4); Monocytes Absolute Auto 0.7 K/mm3 (0.1-0.6); Monocytes Percent Auto 6.9 % (2.6-8.5); Neutrophils Absolute Auto 5.8 K/mm3 (1.3-6.7); Neutrophils Percent Auto 62.3 % (45.5-73.1); Platelet Count Result 231 k/mm3 (150-375); Red Blood Count 4.15 M/mm3 (4.2-5.4); Red Cell Distribution Width 13.3 % (11.5-14.5); White Blood Count 9.4 K/mm3 (4.5-10.0)
[2024-04-19 20:50] LABS: INR 0.9; Partial Thromboplastin Time 28.6 Seconds (22.3-36.8); Prothrombin Time 12.9 Seconds (11.1-14.7)
[2024-04-19 20:51] LABS: Alanine Aminotransferase 19 U/L (6-35); Albumin Level 4.1 g/dL (3.5-5.1); Alkaline Phosphatase 81 U/L (38-126); Anion Gap 9 mmol/L (4-12); Aspartate Amino Transferase 24 U/L (14-36); Bilirubin,Total 0.4 mg/dL (0.2-1.3); Blood Urea Nitrogen 12 mg/dL (7-17); Carbon Dioxide 29 mmol/L (22-30); Chloride 98 mmol/L (98-107); Estimated CRCL calculation 51 ml/min; Estimated Glomerular Filt Rate 55; Glucose 107 mg/dL (65-110); Lipase 190 U/L (23-300); Potassium 2.8 mmol/L (3.4-5.0); Sodium 136 mmol/L (137-145)
[2024-04-19 20:58] LABS: NT Pro B Type Natriuretic Pept 360 pg/mL (19.9-100); Troponin I < 0.012 ng/mL (0.000-0.034)
[2024-04-19] MEDS: KCL 20 MEQ/SW 100 ML 100 ML 50 MEQ IVPB (21:03)
[2024-04-19 21:15] LABS: Magnesium 1.8 mg/dL (1.6-2.3)
[2024-04-19 21:18] LABS: Influenza A QL RT-PCR Negative (Negative); Influenza B QL RT-PCR Negative (Negative); RSV RNA, RT-PCR Negative (Negative); SARS-CoV-2 RNA PCR Positive (Negative)
[2024-04-19] MEDS: MAGNESIUM SULF 1 GM/D5W 100 ML 1 GM/100 ML BAG IVPB (22:01)
[2024-04-19] MEDS: SODIUM CHLORIDE 0.9% IV 1,000 ML 999 ML IV CONT (22:06)
[2024-04-19] MEDS: oxyCODONE/ACETAMINOPHEN (*CRX) 5-325 MG TABLET 1 TABLET PO (23:59)
[2024-04-19] MEDS: BENZONATATE 100 MG CAPSULE 200 MG PO (23:59)
[2024-04-20 00:03] VITALS: O2SAT 97
== END 2024-04-20 00:04 | disposition home or self-care (01) ==
PROVIDERS: Emergency Provider Emergency Medicine; PCP Physician Assistant
DX: J93.9 Pneumothorax, unspecified (principal); S22.42XA Multiple fractures of ribs, left side, initial encounter for closed fracture; U07.1 COVID-19; F41.8 Other specified anxiety disorders; Z85.3 Personal history of malignant neoplasm of breast; E78.5 Hyperlipidemia, unspecified; I10 Essential (primary) hypertension; F17.210 Nicotine dependence, cigarettes, uncomplicated
CPT/HCPCS: 36415; 71046; 71275; 80053; 83690; 83735; 83880; 84484; 85025; 85610; 85730; 87637; 93005; 96365; 96366; 96367; 99284; A9270; J3475; J3480; J7030; Q9967

== ENCOUNTER 2024-04-26 14:03 | Outpatient (CLI) | payer MEDICARE, SELFPAY ==
--- NOTE | ~2024-04-26 | XR_ITS ---
XR chest 2V Ordering provider: Fe Alonso MD History: 64 years Female with . J93.9 - Pneumothorax, unspecified X 1 WEEK, 5 BROKEN RIBS . Comparison: April 19, 2024 FINDINGS: MEDIASTINUM: The cardiac silhouette is not enlarged. LUNGS: No infiltrates, effusions or pneumothorax. OTHER: Healing fractures in the left seventh and eighth ribs. No free air under the diaphragm. IMPRESSION: No acute cardiopulmonary pathology. Healing fractures in the left mid thorax. Reviewed, dictated and finalized at location A. OLOGIC TECHNOLOGY PROGRAM DIRECTOR
== END 2024-04-26 14:04 | disposition home or self-care (01) ==
PROVIDERS: PCP Physician Assistant; Visit Provider Surgery
DX: S22.42XD Multiple fractures of ribs, left side, subsequent encounter for fracture with routine healing (principal); X58.XXXD Exposure to other specified factors, subsequent encounter; J93.9 Pneumothorax, unspecified
CPT/HCPCS: 71046

== ENCOUNTER 2025-03-23 00:25 | Day surgery (SDC) | payer MEDICARE, SELFPAY ==
--- OUTSIDE RECORDS SUMMARY | 2015-05-30 07:11 | XMS_ITS | Continuity of Care Document ---
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 Puller Name Role Phone Allen PT, CMPT, Stanford Unavailable Melody vailable Procedures Procedure Date THERAPEUTIC EXERCISES MANUAL THERAPY FUNC ACTIVITY HOT/COLD PACK THERAPEUTIC EXERCISES MANUAL THERAPY FUNC ACTIVITY HOT/COLD PACK THERAPEUTIC EXERCISES MANUAL THERAPY HOT/COLD PACK THERAPEUTIC EXERCISES MANUAL THERAPY HOT/COLD PACK THERAPEUTIC EXERCISES MANUAL THERAPY HOT/COLD PACK THERAPEUTIC EXERCISES MANUAL THERAPY HOT/COLD PACK PT EVALUATION THERAPEUTIC EXERCISES MANUAL THERAPY Advance Directives Directive Yes / No Effective Date File Name No Information Encounters Encounter Description Practice Location Reason(s) For Visit Diagnoses Date Provider Providers Copied on Encounter [facility], [address], [place], [place], [id number], tel:[phone] [place] No Information 5 Wes Coyne. [address] [facility], [address], [place], [facility], . tel: [phone] [facility], [place], [place], [id number], tel:[phone] [place] No Information Nov-2 4-201 5 Meadows-Jose David es Stanford. [address] [place] [address], [address], [place], [address], [place]. tel: [phone] [place] [address] [facility] [address], [place], [place], [id number], [place] tel:[phone] [place] No Information Nov-2 0-201 5 Meadows-Jose David es Stanford. [address] [place] [address], [address], [place], [address], [place]. tel: [phone] [place] [address] [address], [place], [place], [id number], [place] tel:[phone] [place] No Information Nov-1 3-201 5 Meadows-Jose David es Stanford. [address] [place] [address], [address], [place], [address], [place]. tel: [phone] [place] [address] [address], [place], [place], [id number], [place] tel:[phone] [place] No Information Nov-1 0-201 5 Meadows-Jose David es Stanford. [address] [place] [address], [address], [place], [address], [place]. tel: [phone] [place] [address] [facility] [address], [place], [place], [id number], [place] tel:[phone] [place] No Information Nov-0 3-201 5 Meadows-Jose David es Stanford. [address] [place] [address], [address], [place], [address], [place]. tel: [phone] [place] [address] [address], [place], [place], [address], [place] tel:[phone] [place] No Information Oct-3 0-201 5 Meadosw-Jose David es Stanford. [address] [place] [address], [address], [place], [address], [place]. tel: [phone] [facility] [address], [place], [place], [id number], [place] tel:[phone] [place] Stiffness of left shoulder, not elsewhere classifiedStiffness of right shoulder, not elsewhere classifiedMuscle weakness (generalized)Scar conditions and fibrosis of skinMalignant neoplasm of unsp site of right female breast 5 Wes Coyne. [address] [facility], [address], [place], [address], [place]. tel: [phone] Family History Family Member Type Diagnosis Age At Onset No Information Payers Payer name Insurance type Covered libertarian ID Authordell norwood(s) [facility] [id number] Social History Type Description Quantity Date Captured Comments Sex Female Smoking Status No Information Chief Complaint And Reason For Visit No Information Reason For Referral Reason For Referral No Information History Of Present Illness Encounter Date Complaint History Of Prese nt Illness No Information Functional Status Date Functional Assessmen t No Information Instructions Date Instruction Additional Infor mation No Information Assessments Type Assessment Date No Information Patient Care Teams Name Effective Dates (start - stop) Status Members No Information
[2025-03-11 09:40] VITALS: BMI 25.4
--- OUTSIDE RECORDS SUMMARY | 2025-03-23 00:28 | XMS_ITS | Encounter Summary ---
Author Organization [facility] Address [address] [place] [address] Phone Care Team Providers Care Abstract Checker Name Role Phone Van Walters MD Primary Care Provider Juju Leonard MD Unavailable [phone] Yana Perrin Primary Care Provider [phone] Encounter Details Date Type Department Care Team (Latest Contact Info) Description 06/12/2020 Orders Only [facility] Scanning, Provider Social History Tobacco Use Types Packs/Day Years Used Date Smoking Tobacco: Every Day Cigarettes Smokeless Tobacco: Never Comments:5 to 6 cigarettes a day Alcohol Use Standard Drinks/Week Comments Yes 0 (1 standard drink = 0.6 oz pur e alcohol) Comments Unknown Sex and Gender Information Value Date Recorded Sex Assigned at Not on file Legal Sex Female 1:38 AM CONSULTING SALES EXECUTIVE Gender Identity Not on file Sexual Orientation Not on file documented as of this encounter Plan of Treatment Not on file documented as of this encounter Procedures Procedure Name Priority Date/Time Associated Diagnosis Comments SCAN - LABS 06/12/2020 documented in this encounter Results * SCAN - LABS (06/12/2020) us Provider Scanning Final Result documented in this encounter Visit Diagnoses Not on filedocumented in this encounter Additional Health Concerns Infection Onset Date Last Indicated Resolved Time COVID19 05/13/2022 05/13/2022 05/23/2022 3:05 AM CONSULTING SALES EXECUTIVE COVID: Suspected 05/14/2022 05/13/2022 05/14/2022 8:07 AM CONSULTING SALES EXECUTIVE COVID: Recovered Comment:Added based on recent COVID infection. 05/23/2022 05/27/2022 08/21/2022 3:[address] COVID: Suspected 05/19/2023 05/19/2023 05/19/2023 12:53 PM CONSULTING SALES EXECUTIVE documented as of this encounter Care Teams Abstract Checker Relationship Specialty Start Date End Date Van Walters MD PCP - General 03/13/18 12/11/20 Yana Perrin PA [address] [address] PCP - General Internal Medicine 12/12/20 Juju Leonard MD [address] [facility] [address] [place] [address] Medical Oncologist/Bookbinding Machine Operator Medical Oncology 08/23/20 documented as of this encounter
--- OUTSIDE RECORDS SUMMARY | 2025-03-23 00:28 | XMS_ITS | Clinical Summary ---
Author Organization [facility] Address [address] [place] [address] Care Team Providers Care Tower Control Operator Name Role Phone Dottie Hollis MD Primary Care Provider [phone] Source Comments [facility],non-research psychiatric center Affiliates and Associated Physician Practices is amultiple site organization consisting of ambulatory clinics and hospital sitesin [place], [place], [place] and [place]. This disclosure is being madepursuant to the Care Everywhere program and may not contain all information available regarding this patient. Last updated 18.[facility] [employer] Social History Tobacco Use Types Packs/Day Years Used Date Smoking Tobacco: Never Assessed Comments Unknown Sex and Gender Information Value Date Recorded Sex Assigned at Not on file Legal Sex Female 12:12 PM CDT Gender Identity Not on file Sexual Orientation Not on file Plan of Treatment Health Maintenance Due Date Last Done Comments BONE DENSITY TESTING 1958 COLOGUARD (AGES 45-75) - COL ON CA SCREENING 1958 COLON MONITORING 1958 COLONOSCOPY - COLON CA SCREENING 1958 CT COLONOGRAPHY - COLON CA SCREENING 1960 Colorectal Cancer Screening 1958 FIT - COLON CA SCREENING 1958 FLEX SIG - COLON CA SCREENING 1958 LIPID TESTING 1960 MAMMOGRAM 1958 HEPATITIS C SCREENING 01/26/1976 DTAP/TDAP/TD VACCINES (1 - Tdap) 1977 PNEUMOCOCCAL VACCINE 50+ (1 of 1 - PCV) 01/31/2008 ZOSTER VACCINE (1 of 2) 01/31/2008 DEPRESSION SCREENING 06/23/2024 COVID-19 VACCINE ( - 2023-2 5 season) 2025 INFLUENZA VACCINE (#1) 2025 Respiratory Syncytial Virus (RSV) Vaccine Pt: or over 60 yrs (1 - 1-dose 75+ series) 2033 HEPATITIS B VACCINE Aged Out No longe r eligible based on patient's age to complete this topic HIB VACCINE Aged Out No longer eligi ble based on patient's age to complete this topic HPV VACCINE Aged Out No longer eligi ble based on patient's age to complete this topic MENINGOCOCCAL (Group B) VACC INE SHARED DECISION-MAKING Aged Out No longer eligibl e based on patient's age to complete this topic MENINGOCOCCAL GROUPS A/C/Y/W VACCINE Aged Out No longer eligible b ased on patient's age to complete this topic Insurance [facility] Care Teams Tower Control Operator Relationship Specialty Start Date End Date Dottie Hollis MD [address] [place] [address] [address] [place] [address] PCP - General Family Medicine 01/06/15
--- OUTSIDE RECORDS SUMMARY | 2025-03-23 00:28 | XMS_ITS | Encounter Summary ---
Author Organization [facility] Address [address] [place] [address] Care Team Providers Care Scalder Name Role Phone Dottie Hollis MD Primary Care Provider [phone]- [phone] Encounter Details Date Type Department Care Team (Late st Contact Info) Description 04/22/2018 Abstract [facility] [address] [place] [address] Princess Dhaval Social History Tobacco Use Types Packs/Day Years Used Date Smoking Tobacco: Every Day Cigarettes Smokeless Tobacco: Never Alcohol Use Standard Drinks/Week Comments Yes 0 (1 standard drink = 0.6 oz pur e alcohol) rare Comments No Sex and Gender Information Value Date Recorded Sex Assigned at Not on file Legal Sex Female 8:51 AM CDT Gender Identity Not on file Sexual Orientation Not on file documented as of this encounter Plan of Treatment Not on file documented as of this encounter Visit Diagnoses Not on filedocumented in this encounter Care Teams Scalder Relationship Specialty Start Date End Date Dottie Hollis MD [address] [place] [id number] PCP - General 06/09/15 documented as of this encounter
--- OUTSIDE RECORDS SUMMARY | 2025-03-23 00:28 | XMS_ITS | Encounter Summary ---
Author Organization [facility] Address [address] [place] [address] Phone Care Team Providers Care S Iron Worker Name Role Phone Van Walters MD Primary Care Provider Juju Leonard MD Unavailable [phone] Yana Perrin Primary Care Provider [phone] Encounter Details Date Type Department Care Team (Latest Contact Info) Description 06/25/2020 Orders Only [facility] Scanning, Provider [...] on file Legal Sex Female 1:38 AM CIGARETTE TIPPER Gender Identity Not on file Sexual Orientation Not on file documented as of this encounter Plan of Treatment Not on file documented as of this encounter Procedures Procedure Name Priority Date/Time Associated Diagnosis Comments SCAN - RADIOLOGY/IMAGING 06/25/2020 documented in this encounter Results * SCAN - RADIOLOGY/IMAGING (06/25/2020) Anatomical Region Laterality Modality Other us Provider Scanning Final Result documented in this encounter Visit Diagnoses Not on filedocumented in this encounter Additional Health Concerns Infection Onset Date Last Indicated Resolved Time COVID19 05/13/2022 05/13/2022 05/23/2022 3:05 AM CIGARETTE TIPPER COVID: Suspected 05/14/2022 05/13/2022 05/14/2022 8:07 AM CIGARETTE TIPPER COVID: Recovered Comment:Added based on recent COVID infection. 05/23/2022 05/27/2022 08/21/2022 3:[address] COVID: Suspected 05/19/2023 05/19/2023 05/19/2023 12:53 PM CIGARETTE TIPPER documented as of this encounter Care Teams S Iron Worker Relationship Specialty Start Date End Date Van Walters MD PCP - General 03/13/18 12/11/20 Yana Perrin PA [address] [facility] [address] [place] [address] PCP - General Internal Medicine 12/12/20 Juju Leonard MD [address] [facility] [address] [place] [address] Medical Oncologist/Tetryl Boiling Tub Operator Medical Oncology 08/23/20 documented as of this encounter
--- OUTSIDE RECORDS SUMMARY | 2025-03-23 00:28 | XMS_ITS | Clinical Summary ---
Author Organization [facility] Address [address] [place] [id number] Care Team Providers Care Disassembler Product Name Role Phone Juju Leonard MD Unavailable [phone]- [phone] Yana Perrin Primary Care Provider [phone]- [phone] Allergies Active Allergy Reactions Criticality Noted Date Comments Cat Dander Anaphylaxis High 09/11/2018 Ciprofloxacin Rash Medium 2015 Codeine Hives,Itching,Other (See comments),Swelling High 01/09/2015 Throat/tongue swelling Tongue swelling Hydrocodone-Acetaminoph en Latex Itching Low 02/15/2015 Morphine Swelling Medium 06/15/2015 Penicillins Hives,Itching Medium 01/09/2015 Soy Rash Medium 02/15/2015 Sulfa (Sulfonamide Antibiotics) Itching Low 01/09/2015 Medications EPINEPHrine (EPIPEN) 0.15 mg/0.3 mL injection syringeIndicati ons:Anaphylaxis Inject 0.3 mL (0.15 mg total) into the muscle as instructed Active folic acid/multivitjessica miner (CENTRUM ORAL) Take 1 capsule by mouth daily Active cyanocobalamin (Vitamin B-12) 1,000 mcg tabletIndicatio ns:Prevention of Vitamin B12 Deficiency Take 1 tablet (1,000 mcg total) by mouth daily Active vitamin E (AQUASOL E) 100 unit capsule Take 1 capsule (100 Units total) by mouth daily Active ascorbic acid (VITAMIN C) 1,000 mg tablet Take 1 tablet (1,000 mg total) by mouth daily Active potassium 99 mg tablet Take by mouth Active calcium carbonate (CALCIUM 600 ORAL) Take 1,200 mg by mouth daily Active cholecalciferol (VITAMIN D-3) 25 mcg (1,000 unit) tablet Take 1 tablet (1,000 Units total) by mouth daily Active albuterol HFA (PROVENTIL HFA,VENTOLIN HFA,PROAIR HFA) 90 mcg/actuation inhaler INHALE 2 PUFFS BY MOUTH EVERY 4 HOURS NEEDED FOR WHEEZING 8.5 g 1 3 Active acetaminophen (TYLENOL) 325 mg tablet Take 2 tablets (650 mg total) by mouth every 6 (six) hours as needed for pain Active aspirin (Adult Low Dose Aspirin) 81 mg enteric coated tablet Take 1 tablet (81 mg total) by mouth daily 3 Active budesonide-glyc opyr-formoterol (Breztri Aerosphere) 160-9-4.8 mcg/actuation inhaler Inhale 2 puffs 2 (two) times a day 3 each 1 4 Active ondansetron (ZOFRAN) 4 mg tablet Take 1 tablet (4 mg total) by mouth every 8 (eight) hours as needed for nausea or vomiting 20 tablet 4 Active benzonatate (TESSALON) 100 mg capsuleIndicati ons:Cough Take 1 capsule (100 mg total) by mouth 3 (three) times a day as needed for cough 21 capsule 4 Active alendronate (FOSAMAX) 70 mg tablet TAKE 1 TABLET BY MOUTH EVERY WEEK IN THE MORNING WITH A FULL GLASS OF WATER, ON AN EMPTY STOMACH. NOTHING BY MOUTH OR LIE DOWN FOR THE NEXT 30 MINUTES 12 tablet 2 5 Active buPROPion XL (WELLBUTRIN XL) 300 mg 24 hr tablet TAKE 1 TABLET(300 MG) BY MOUTH EVERY MORNING 90 tablet 1 5 Active simvastatin (ZOCOR) 20 mg tablet Take 1 tablet (20 mg total) by mouth nightly 90 tablet [address] (ACIPHEX) 20 mg EC tabletIndicatio ns:Gastroesopha geal reflux disease without esophagitis TAKE 1 TABLET(20 MG) BY MOUTH DAILY 90 tablet 1 5 Active losartan (COZAAR) 100 mg tablet TAKE 1 TABLET(100 MG) BY MOUTH DAILY 90 tablet 1 5 Active escitalopram (LEXAPRO) 20 mg tabletIndicatio ns:Anxiety TAKE 1 TABLET(20 MG) BY MOUTH DAILY 90 tablet 1 5 Active triamterene-hyd roCHLOROthiazid e 37.5-25 mg per tablet/capsule TAKE 1 TABLET BY MOUTH DAILY 90 tablet 1 5 Active carvediloL (COREG) 12.5 mg tablet TAKE 1 TABLET(12.5 MG) BY MOUTH TWICE DAILY WITH MEALS 180 tablet 1 5 Active ARIPiprazole (ABILIFY) 2 mg tablet TAKE 1 TABLET(2 MG) BY MOUTH DAILY 90 tablet 1 5 Active cyclobenzaprine (FLEXERIL) 10 mg tabletIndicatio ns:Chronic bilateral low back pain without sciatica Take 1 tablet (10 mg total) by mouth 3 (three) times a day as needed for muscle spasms for muscle spasms 20 tablet 5 Active ALPRAZolam (XANAX) 0.25 mg tablet Take 1 tablet (0.25 mg total) by mouth nightly as needed for anxiety 30 tablet 5 Active suvorexant (BELSOMRA) 10 mg tablet Take 1 tablet (10 mg total) by mouth nightly 90 tablet 1 5 Active suvorexant (BELSOMRA) 10 mg tablet Take 1 tablet (10 mg total) by mouth nightly 90 tablet 5 03/07/20 25 Discontin ued(Reord er) cyclobenzaprine (FLEXERIL) 10 mg tabletIndicatio ns:Chronic bilateral low back pain without sciatica Take 1 tablet (10 mg total) by mouth 3 (three) times a day as needed for muscle spasms for muscle spasms 20 tablet 5 02/25/20 25 Discontin ued(Reord er) ALPRAZolam (XANAX) 0.25 mg tablet Take 1 tablet (0.25 mg total) by mouth nightly as needed for anxiety 30 tablet 5 03/07/20 25 Discontin ued(Reord er) Active Problems Patient Care Coordination No te Formatting of this note migh t be different from the original. CAD for BIC MsKatelyn Kiming is a 60-year-old with a lung nodule. Patient has a history of breast cancer status post bilateral mastectomy in 2015. On 09/13/2020 the patient underwent a lung cancer screening CT which noted a 5 mm right upper lobe lung nodule which was non solid, a 2.8 mm solid left upper lobe pulmonary nodule. A 2 mm solid left upper lobe pulmonary nodule. A 6 mm non solid left upper lobe pulmonary nodule and a 7.8 mm part solid at left lower lobe lung nodule. The solid part measured 4.1 mm. Patient is a current smoker. Patient presents today for further surgical evaluation. Problem Noted Date Diagnosed Date Pre-diabetes 01/13/2025 Chronic kidney disease, stage 3a 01/13/2025 BMI 25.0-25.9,adult 01/05/2025 Assessment & Plan (01/05/2025 8:29 AM CDT): Weight/BMI is in healthy range. Continue healthy lifestyle to maintain. Multiple falls 07/06/2024 Assessment & Plan (07/06/2024 10:57 AM SCENE AND LIGHTING DESIGN LECTURER): This is a significant, separately identifiable problem that was evaluated and managed on the same day as the wellness exam Patient has had multiple falls over the last few months. She denies spinning dizziness but feels weak and feels like her balance is off. She follows with Cardiology. She did not have any bruits so I am not going to pursue cardiology cause at this point. Recommend ruling out any type of brain abnormality/mass. Will get MRI of the brain. Also recommend starting physical therapy for balance and gait training and strengthening to see if we can reduce her fall risk. This Poor balance 07/06/2024 Assessment & Plan (07/06/2024 10:58 AM SCENE AND LIGHTING DESIGN LECTURER): This is a significant, separately identifiable problem that was evaluated and managed on the same day as the wellness exam Patient has had multiple falls over the last few months. She denies spinning dizziness but feels weak and feels like her balance is off. She follows with Cardiology. She did not have any bruits so I am not going to pursue cardiology cause at this point. Recommend ruling out any type of brain abnormality/mass. Will get MRI of the brain. Also recommend starting physical therapy for balance and gait training and strengthening to see if we can reduce her fall risk. This History of pneumothorax 04/19/2024 Overview (07/06/2024): Left side after fall in 2023 Assessment & Plan (04/19/2024 6:20 PM CDT): ADDENDUM Added after recieving 04/19/2024 Chest xray from [facility]. Small left pneumothorax There are airspace opacities in ligula, consistent with atelectasis vs pneumonia. I called patient at 6pm and reviewed the results with her after discussing with Dr. Bateman. The radiologist did not provide size of the pneumothorax and with her pneumonia symptoms, unknown when pneumothorax occurred and left sided back pain, will send patient to [facility] for further evaluation/determine definitive care. Instructed patient to bring the medications she filled from the pharmacy with her to the ER. She is in agreement with the plan and will go directly to the ER. I called [facility] and provided a report. Colon cancer screening 02/02/2024 Assessment & Plan (07/06/2024 10:55 AM SCENE AND LIGHTING DESIGN LECTURER): Patient is past due for colon cancer screening. She had an appointment with Dr. Wilson free has been had to cancel due to the weather. Strongly encouraged her to get this scheduled Assessment & Plan (02/02/2024 6:34 PM CDT): Due for colon cancer screening. Referral made to Dr. Steve Cormier 02/02/2024 Assessment & Plan (07/06/2024 10:56 AM SCENE AND LIGHTING DESIGN LECTURER): Symptoms are stable with Wellbutrin and Lexapro She is planning to start grief counseling in the near future Assessment & Plan (02/02/2024 6:31 PM CDT): Patient with depression that is connected with grief from the loss of her spouse. Currently on Wellbutrin and Lexapro. Using Xanax HS to help with the anxiety through the night. Strongly encouraged grief share other supportive group and/or counseling to help her continue to process through her grief. Discussed referral to sleep but will try addressing this from the grief standpoint before we address the sleep aspect. Patient is in agreement with the plan Anxiety 02/02/2024 Assessment & Plan (07/06/2024 10:56 AM SCENE AND LIGHTING DESIGN LECTURER): Symptoms are stable with Wellbutrin and Lexapro She is planning to start grief counseling in the near future Assessment & Plan (02/02/2024 6:31 PM CDT): Patient with depression that is connected with grief from the loss of her spouse. Currently on Wellbutrin and Lexapro. Using Xanax HS to help with the anxiety through the night. Strongly encouraged grief share other supportive group and/or counseling to help her continue to process through her grief. Discussed referral to sleep but will try addressing this from the grief standpoint before we address the sleep aspect. Patient is in agreement with the plan Cigarette smoker 02/02/2024 Assessment & Plan (07/06/2024 10:56 AM SCENE AND LIGHTING DESIGN LECTURER): Encouraged smoking cessation. Discussed 3 minutes. Reviewed options for assistance with cessation. Reviewed group home sequela associated with smoking. Pt declines assistance at this time but may contact the office at anytime for further help as they desire. She is already on Wellbutrin. Assessment & Plan (02/02/2024 6:31 PM CDT): Encouraged smoking cessation. Discussed 3 minutes. Reviewed options for assistance with cessation. Reviewed manager intermediate sequela associated with smoking. Pt declines assistance at this time but may contact the office at anytime for further help as they desire. 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 Again encouraged her to get this appointment scheduled. She said she had 1 scheduled but the snow made her cancel. Assessment & Plan (02/02/2024 6:34 PM CDT): Patient with history of Jacinto's esophagus. She needs to follow-up with GI for colonoscopy as well as EGD. Was referred to Dr. Wilson in December of [address]22[address] a new referral and strongly encouraged patient to help follow-up with this and be on the lookout for a call from Dr. Wilson's office. Moderate episode of recurrent major depressive d isorder 08/25/2023 Assessment & Plan (07/06/2024 10:55 AM SCENE AND LIGHTING DESIGN LECTURER): Symptoms are stable with Wellbutrin and Lexapro She is planning to start grief counseling in the near future Assessment & Plan (02/02/2024 6:30 PM CDT): Patient with depression that is connected with grief from the loss of her spouse. Currently on Wellbutrin and Lexapro. Using Xanax HS to help with the anxiety through the night. Strongly encouraged grief share other supportive group and/or counseling to help her continue to process through her grief. Discussed referral to sleep but will try addressing this from the grief standpoint before we address the sleep aspect. Patient is in agreement with the plan Assessment & Plan (11/18/2023 12:06 AM CDT): Patient has seen improvement with the Xanax at nighttime. Will continue but advised will not increase the dose. Continue Wellbutrin XL 300 Lexapro 10. Continue to monitor closely. Encouraged counseling as this seems to related to grief after her 's . She may find it helpful Assessment & Plan (08/25/2023 10:52 AM SCENE AND LIGHTING DESIGN LECTURER): Patient continues to have depression and grief symptoms. Currently pretty stable with the Wellbutrin XL 300 Lexapro 10. Worse times at night. Trialed the Xanax 0.25 and she definitely had improvement with her head being able to shut off. Reviewed with her the concern that as a benzodiazepine the need of dose as well as frequency may increase over time and if we can find an alternative I really would like to do it. She is in agreement. She has not tolerated Rozerem trazodone Ambien melatonin and BuSpar in the past with tolerability or results Discussed using a low-dose Abilify hour before bedtime to see if this help assist when putting her into restful rest. Reviewed risks benefits alternatives side effects and proper use. Will try the 2 mg dose have a follow-up in 4-6 weeks to reassess. Advised if she sees us mild improvement but not enough can definitely increase to the 5. She begin sleeping longer periods of time she may stop the Xanax otherwise can augment them using them together until we are able to come up with a longer-term plan. Hypertension, renal disease, stage 1-4 or unspecified chronic kidney disease 03/31/2023 Assessment & Plan (07/06/2024 10:55 AM SCENE AND LIGHTING DESIGN LECTURER): Bp is stable/in acceptable range for any co-morbidities. Encouraged to limit sodium intake and exercise for weight control. Continue Coreg and losartan and triamterene hydrochlorothiazide Assessment & Plan (02/02/2024 6:33 PM CDT): Bp is stable/in acceptable range for any co-morbidities. Encouraged to limit sodium intake and exercise for weight control. Continue Coreg Assessment & Plan (08/17/2023 1:24 AM SCENE AND LIGHTING DESIGN LECTURER): Bp is stable/in acceptable range for any co-morbidities. Encouraged to limit sodium intake and exercise for weight control. Continue Coreg 12.5 b.i.d., losartan 100 daily and triamterene hydrochlorothiazide Assessment & Plan (05/31/2023 11:39 PM SCENE AND LIGHTING DESIGN LECTURER): Bp is stable/in acceptable range for any co-morbidities. Encouraged to limit sodium intake and exercise for weight control. Continue triamterene hydrochlorothiazide 37.5/25 Coronary artery calcification seen on CT scan Fatigue 07/21/2022 Assessment & Plan (07/06/2024 10:56 AM SCENE AND LIGHTING DESIGN LECTURER): Probably multifactorial. Check labs and followup to re-evaluate Assessment & Plan (02/02/2024 6:33 PM CDT): Probably multifactorial. Check labs and followup to re-evaluate Assessment & Plan (07/21/2022 10:06 PM SCENE AND LIGHTING DESIGN LECTURER): Discussed the patient's BMI. The BMI is above average. BMI management plan is completed. BMI Follow-up includes: nutrition counseling, exercise counseling and education provided. Emphysema of lung 01/21/2022 Assessment & Plan (07/06/2024 10:54 AM SCENE AND LIGHTING DESIGN LECTURER): Known COPD. She continues to smoke. Encouraged complete smoking cessation. Did see improvement with the Breztri. Continue albuterol p.r.n.. Continue per pulmonology. Assessment & Plan (02/02/2024 6:28 PM CDT): Patient with COPD. Managed by pulmonology Has pulmonary nodules which Pulmonary does follow up on. Was on Symbicort but has been using a frozen breasts tree with good results. Would like to continue the breasts tree albuterol and Mucinex. Assessment & Plan (08/17/2023 1:25 AM SCENE AND LIGHTING DESIGN LECTURER): Patient with COPD. She follows with Pulmonary and CT surgery and nurse practitioner Davi Garcia. She manages the imaging as well as her Symbicort and albuterol and Mucinex Assessment & Plan (05/31/2023 11:38 PM SCENE AND LIGHTING DESIGN LECTURER): Continue pulmonary CT surgeon nurse practitioner Davi Garcia. Continue Symbicort and albuterol. She is had a acute cough. Encouraged Tessalon Perles and albuterol p.r.n. if symptoms persist may need to add an antibiotic Assessment & Plan (07/21/2022 10:04 PM SCENE AND LIGHTING DESIGN LECTURER): Continue per CUSTOMER ADVISOR SPECIALIST Davi Garcia. She is following up on the pulmonary nodules. Continue with Symbicort albuterol and Mucinex. Encouraged complete smoking cessation Assessment & Plan (02/11/2022 12:23 PM CDT): Encouraged smoking cessation. Continue inhalers Assessment & Plan (01/21/2022 12:15 AM CDT): Patient with probable COPD due to history of smoking. She has never seen a ventilation mechanic. Recommend referral for evaluation probable PFTs and consider treatment options. Continue currently with Symbicort and albuterol Encourage smoking cessation Primary insomnia 12/16/2020 Assessment & Plan (07/06/2024 10:53 AM SCENE AND LIGHTING DESIGN LECTURER): Patient continues to use Xanax 0.25 HS with some improved results. Encouraged her to stay in bed and try to reset and sleep to get more than just 3-4 hours a night. Assessment & Plan (11/18/2023 12:06 AM CDT): Patient has seen improvement with the Xanax at nighttime. Will continue but advised will not increase the dose. Continue Wellbutrin XL 300 Lexapro 10. Continue to monitor closely. Encouraged counseling as this seems to related to grief after her 's . She may find it helpful Assessment & Plan (08/25/2023 10:53 AM SCENE AND LIGHTING DESIGN LECTURER): Patient continues to have depression and grief symptoms. Currently pretty stable with the Wellbutrin XL 300 Lexapro 10. Worse times at night. Trialed the Xanax 0.25 and she definitely had improvement with her head being able to shut off. Reviewed with her the concern that as a benzodiazepine the need of dose as well as frequency may increase over time and if we can find an alternative I really would like to do it. She is in agreement. She has not tolerated Rozerem trazodone Ambien melatonin and BuSpar in the past with tolerability or results Discussed using a low-dose Abilify hour before bedtime to see if this help assist when putting her into restful rest. Reviewed risks benefits alternatives side effects and proper use. Will try the 2 mg dose have a follow-up in 4-6 weeks to reassess. Advised if she sees us mild improvement but not enough can definitely increase to the 5. She begin sleeping longer periods of time she may stop the Xanax otherwise can augment them using them together until we are able to come up with a longer-term plan. Assessment & Plan (08/17/2023 1:23 AM SCENE AND LIGHTING DESIGN LECTURER): This is a significant, separately identifiable problem that was evaluated and managed on the same day as the wellness exam Patient has tried multiple sleep agents Rozerem as well as trazodone Ambien melatonin and BuSpar. She states she feels very anxious when she lays down and to sleep and that is what is keeping her awake. She is not using any substances. Will trial Xanax 0.25 HS to see if this helps and do sleep. Stressed that this has not addictive potential and with her narcotic addiction history will need to be very cautious. Follow-up in 2-3 months to reassess or sooner for any other problems or concerns Assessment & Plan (05/19/2023 9:56 AM SCENE AND LIGHTING DESIGN LECTURER): This is a significant, separately identifiable problem that was evaluated and managed on the same day as the wellness exam Discussed treatment options. Didn't tolerate trazodone -- felt strange Ambien -- did things in the night she was unaware of Discussed treatment options including risks benefits alternatives side effects and proper use. Will try Rozerem to see how she does. Assessment & Plan (01/19/2023 12:42 AM CDT): Continue trazodone. Did not feel like 50 did not enough but felt like 100 was too much so encouraged 50 mg 1 and half tablets reassess in 3 months Assessment & Plan (10/10/2022 10:34 PM CDT): Patient tolerated the transition from amitriptyline to trazodone 50. It did not noticed much change in insomnia. Willing to increase the dose. May take 1-2 1-3 hours prior to bedtime. Will follow-up in 2-3 months to reassess. Assessment & Plan (09/08/2022 4:05 PM CDT): Patient has been on amitriptyline for years and isn't feeling any help with rest. Will have her taper it and transition to trazodone as follows Amytriptyline 100mg take half tab x 2 weeks then every other day Start Trazodone 50 mg daily on week 2. Continue the Lexapro at this point. Assessment & Plan (07/21/2022 10:03 PM SCENE AND LIGHTING DESIGN LECTURER): Continue monitor. Patient is on Elavil and Wellbutrin. Confirm she is taking the Wellbutrin 1st thing in the morning. Will add Lexapro to see if this helps Shutters had off at night and continue to monitor closely. Encouraged a good sleep regimen Assessment & Plan (12/16/2020 10:35 PM CDT): Currently on Elavil Will continue to monitor History of narcotic addiction 12/16/2020 Overview (12/16/2020): 2017 - oxycodone for severe pain. Using Celebrex now for control and will use Zofran if has nausea 'related to pain Oxycodone is still on her med list but advisied this is not a prn medication and if she has break thru pain will discuss options. Assessment & Plan (07/06/2024 10:53 AM SCENE AND LIGHTING DESIGN LECTURER): History of narcotic addiction in 2017. Patient has remained clean since that point. Assessment & Plan (02/02/2024 6:30 PM CDT): Patient with history of narcotic addiction. Has been clean since 2017. Assessment & Plan (08/17/2023 1:26 AM SCENE AND LIGHTING DESIGN LECTURER): History of narcotic addiction. Has continued to remain clean Assessment & Plan (12/16/2020 10:35 PM CDT): Caution/avoid addictive medications. Ascending aortic aneurysm (CMS/HCC) 12/16/2020 Overview (11/18/2023): Noted on 08/2020 CT. On Coreg to off-load pressure to the area. Stressed importance of complete smoking cessation 09/2022 LDCT: Stable ascending aortic enlargement is again noted with a orthogonal measurement of 3.9 x 4.0 cm 09/2023 LDCT: Stable ascending aortic enlargement is again noted with a orthogonal measurement of 4.0 x 4.0 cm Assessment & Plan (07/06/2024 10:54 AM SCENE AND LIGHTING DESIGN LECTURER): Patient with known ascending aortic aneurysm. Last CT was in September of 2023. This is managed by Dr. Woodall. Last measurement was 4.4 cm and will repeat again her annual screening Assessment & Plan (02/02/2024 6:32 PM CDT): Noted on 08/2020 CT. On Coreg to off-load pressure to the area. Stressed importance of complete smoking cessation 09/2022 LDCT: Stable ascending aortic enlargement is again noted with a orthogonal measurement of 3.9 x 4.0 cm 09/2023 LDCT: Stable ascending aortic enlargement is again noted with a orthogonal measurement of 4.0 x 4.0 cm Assessment & Plan (11/18/2023 12:02 AM CDT): Noted on 08/2020 CT. On Coreg to off-load pressure to the area. Stressed importance of complete smoking cessation 09/2022 LDCT: Stable ascending aortic enlargement is again noted with a orthogonal measurement of 3.9 x 4.0 cm 09/2023 LDCT: Stable ascending aortic enlargement is again noted with a orthogonal measurement of 4.0 x 4.0 cm Continue annual screenings. Assessment & Plan (12/16/2020 10:40 PM CDT): Noted on 08/2020 CT. Hasn't had followup but 03/2021 CT is scheduled to followup lung nodules so will observe. Has not had an ECHO. Has not seen CTWill monitor aneurysm with the repeat CT in March while monitor lung nodules. Will refer to Cardio for palpiations. If doesn't have an ECHO done upon followup will consider Discussed referral to CT surgery upon completion of all of these. Stressed importance of smoking cessation. History of bilateral mastectomy 12/16/2020 Assessment & Plan (11/18/2023 12:05 AM CDT): History of bilateral mastectomy. She needs new bras. Prefers and bra shop. Will reach out to determine what they need for this to be accomplished. Assessment & Plan (12/16/2020 10:36 PM CDT): S/p breast cancer Mixed hyperlipidemia 12/12/2020 Assessment & Plan (07/06/2024 10:56 AM SCENE AND LIGHTING DESIGN LECTURER): Encouraged patient to follow low fat/low chol diet like the Mediterranean diet. Increase good fats in the diet. Increase exercise. Monitor labs as needed. Continue simvastatin Assessment & Plan (02/02/2024 6:32 PM CDT): Encouraged patient to follow low fat/low chol diet like the Mediterranean diet. Increase good fats in the diet. Increase exercise. Monitor labs as needed. Continue simvastatin Assessment & Plan (08/17/2023 1:26 AM SCENE AND LIGHTING DESIGN LECTURER): Encouraged patient to follow low fat/low chol diet like the Mediterranean diet. Increase good fats in the diet. Increase exercise. Monitor labs as needed. Continue simvastatin Assessment & Plan (05/31/2023 11:37 PM SCENE AND LIGHTING DESIGN LECTURER): Encouraged patient to follow low fat/low chol diet like the Mediterranean diet. Increase good fats in the diet. Increase exercise. Monitor labs as needed. Continue Zocor Assessment & Plan (10/10/2022 10:34 PM CDT): Encouraged patient to follow low fat/low chol diet like the Mediterranean diet. Increase good fats in the diet. Increase exercise. Monitor labs as needed. Continue simvastatin Assessment & Plan (07/21/2022 9:51 PM SCENE AND LIGHTING DESIGN LECTURER): Encouraged patient to follow low fat/low chol diet like the Mediterranean diet. Increase good fats in the diet. Increase exercise. Monitor labs as needed. Continue statin Assessment & Plan (01/21/2022 12:13 AM CDT): Encouraged patient to follow low fat/low chol diet like the Mediterranean diet. Increase good fats in the diet. Increase exercise. Monitor labs as needed. Continue statin Assessment & Plan (12/16/2020 10:25 PM CDT): Encouraged patient to follow fat/low chol diet like the Mediterranean diet. Increase good fats in the diet. Increase exercise. Monitor labs as needed. Palpitations 12/12/2020 Gastroesophageal reflux disease without esophagi tis 12/12/2020 Assessment & Plan (07/06/2024 10:52 AM SCENE AND LIGHTING DESIGN LECTURER): Continue AcipHex p.r.n. she has known history of Jacinto's esophagus so stressed again the importance of following up with Dr. Steve meza for EGD and colonoscopy. Stressed the Jacinto's can be precancerous and want to screen to be able to prevent further progression or concerns. Patient verbalizes understanding Assessment & Plan (12/16/2020 10:33 PM CDT): Continue PPI Allergy to cats 12/12/2020 Assessment & Plan (12/16/2020 10:25 PM CDT): Has Epi pen. Lung nodule seen on imaging study 10/02/2020 Assessment & Plan (12/16/2020 10:35 PM CDT): Following with Dr. Deep Paige. Per his note plans repeat CT in 03/2021 Osteopenia of multiple sites 08/24/2018 Assessment & Plan (07/06/2024 10:51 AM SCENE AND LIGHTING DESIGN LECTURER): Continue Fosamax on Sundays. Continue calcium vitamin-D and exercise. Next DEXA will be due in 2025 Assessment & Plan (02/02/2024 6:32 PM CDT): Continue with her Fosamax which was started in December. Recheck DEXA in approximately August of 2024. Continue with calcium vitamin-D and exercise Assessment & Plan (08/17/2023 1:27 AM SCENE AND LIGHTING DESIGN LECTURER): Continue Fosamax. Continue calcium vitamin-D and exercise Assessment & Plan (05/31/2023 11:36 PM SCENE AND LIGHTING DESIGN LECTURER): Last DEXA in February of 2022. Noted some improvement. Continue Fosamax. Friday as her Fosamax day. Continue calcium vitamin-D and exercise Recheck DEXA in 2023 Assessment & Plan (01/19/2023 1:04 AM CDT): This is a significant, separately identifiable problem that was evaluated and managed on the same day as the wellness exam Reviewed DXA, tscores and reivewed risk fracture. This is a significant, separately identifiable problem that was evaluated and managed on the same day as the wellness exam To maintain the strength you have, I encourage calcium (approximately 1500mg daily in divided doses or from your diet), vitamin D (supplement otc 5,000IU each day with a meal for best absorption) and weight bearing exercise (walking, dancing, gardening etc) to maintain the good bone strength. Discussed treatment options. Patient is most interested in bisphosphonate. Reviewed risks benefits alternatives side effects and proper use. Stressed the importance of taking in the morning on an empty stomach and not sitting down for 30 minutes to an hour based on the medication covered by her insurance. Attempted to send Actonel to take 1 monthly but it appears as though Fosamax as the preferred medication Recheck DXA in 2 years Assessment & Plan (07/21/2022 9:51 PM SCENE AND LIGHTING DESIGN LECTURER): Per Dr. Since note her oncologist, it looks like she was referred to bone health. Multiple visits have been canceled. DEXA is pending. Will follow-up with patient at her next visit as this was noted in the chart after patient left. Malignant neoplasm of upper- outer quadrant of right breast in female, estrogen receptor positive 03/13/2018 Cancer Staging:Pathologic:Stage IA(pT1b, pN0(sn), cM0, G2, ER: Positive, WA: Negative, HER2: Negative) - Signed by Juju Leonard MD on 03/13/2018 Assessment & Plan (12/16/2020 10:34 PM CDT): Continue per ONC On Aromasin Resolved Problems Problem Noted Date Diagnosed Date Resolved Date Dizziness 07/06/2024 01/13/2025 Assessment & Plan (07/06/2024 10:57 AM SCENE AND LIGHTING DESIGN LECTURER): This is a significant, separately identifiable problem that was evaluated and managed on the same day as the wellness exam Patient has had multiple falls over the last few months. She denies spinning dizziness but feels weak and feels like her balance is off. She follows with Cardiology. She did not have any bruits so I am not going to pursue cardiology cause at this point. Recommend ruling out any type of brain abnormality/mass. Will get MRI of the brain. Also recommend starting physical therapy for balance and gait training and strengthening to see if we can reduce her fall risk. This persists may need to workup cardiac further. Patient is in agreement with the plan Annual physical exam 07/06/2024 025 Assessment & Plan (07/06/2024 11:02 AM SCENE AND LIGHTING DESIGN LECTURER): Encouraged healthy lifestyle, good nutrition and exercise. Encouraged Calcium and Vitamin D and weight bearing exercise for bone health. Reviewed immunizations Reviewed age appropirate screenings. Acute cough 04/19/2024 07/06/2024 Assessment & Plan (04/19/2024 7:58 AM CDT): Patient presents today concerned about sinusitis. On exam she has definitely rhonchi and wheezing that are present. Will check a chest x-ray to rule out pneumonia. Start doxycycline 100 mg b.i.d. times 10 days. Kaylee Gomez by her request. Continue the Breztri and albuterol p.r.n.. If symptoms worsen she is to follow up in the ER. Continue with [id number] supportive therapy Need for influenza vaccination 04/19/2024 07/06/2024 Assessment & Plan (04/19/2024 7:58 AM CDT): Flu vaccine updated today Breast nodule 03/26/2024 07/06/2024 Hyperglycemia, unspecified 02/02/2024 0 01/13/2025 Assessment & Plan (02/02/2024 6:34 PM CDT): Pre-diabetes/hyperglycemia is a precursor to Dm. Stressed importance of working on diet (decrease your simple sugars and one carbohydrate with each meal) and increase you exercise to achieve weight loss and this will help prevent you from progressing to diabetes. Medicare annual wellness visit, subsequent 02/02/2024 07/06/2024 Assessment & Plan (02/02/2024 6:34 PM CDT): Encouraged healthy lifestyle, good nutrition and exercise. Encouraged Calcium and Vitamin D and weight bearing exercise for bone health. Reviewed immunizations. Reviewed age appropirate screenings. Medicare Wellness Documentation is completed within the chart Hyperglycemia 01/20/2024 01/13/2025 Assessment & Plan (07/06/2024 10:56 AM SCENE AND LIGHTING DESIGN LECTURER): Check labs Acute pain of both knees 11/18/2023 Assessment & Plan (11/18/2023 12:07 AM CDT): Patient recently fell directly on her knees. She continued to have discomfort. Will check bilateral knee x-rays and follow up pending those results BMI 24.0-24.9, adult 11/17/2023 025 Assessment & Plan (07/06/2024 9:53 AM SCENE AND LIGHTING DESIGN LECTURER): Weight/BMI is in healthy range. Continue healthy lifestyle to maintain. Assessment & Plan (04/19/2024 7:26 AM CDT): Weight/BMI is in healthy range. Continue healthy lifestyle to maintain. Assessment & Plan (01/20/2024 7:17 AM CDT): Weight/BMI is in healthy range. Continue healthy lifestyle to maintain. Assessment & Plan (11/18/2023 12:06 AM CDT): Weight/BMI is in healthy range. Continue healthy lifestyle to maintain. Positive depression screening 08/25/2023 08/25/2023 BMI 21.0-21.9, adult 08/25/2023 024 BMI 22.0-22.9, adult 08/25/2023 024 Assessment & Plan (10/23/2023 7:51 AM CDT): Weight/BMI is in healthy range. Continue healthy lifestyle to maintain. Assessment & Plan (08/25/2023 10:53 AM SCENE AND LIGHTING DESIGN LECTURER): Weight/BMI is in healthy range. Continue healthy lifestyle to maintain. BMI 20.0-20.9, adult 08/17/2023 024 Assessment & Plan (08/17/2023 1:27 AM SCENE AND LIGHTING DESIGN LECTURER): Weight/BMI is in healthy range. Continue healthy lifestyle to maintain. Need for vaccination for Strep pneumoniae 08/17/2023 08/25/2023 Assessment & Plan (08/17/2023 1:27 AM SCENE AND LIGHTING DESIGN LECTURER): Prevnar 20 updated in the office Annual physical exam 05/19/2023 Assessment & Plan (08/17/2023 1:27 AM SCENE AND LIGHTING DESIGN LECTURER): Encouraged healthy lifestyle, good nutrition and exercise. Encouraged Calcium and Vitamin D and weight bearing exercise for bone health. Reviewed immunizations Reviewed age appropirate screenings. Assessment & Plan (05/31/2023 11:40 PM SCENE AND LIGHTING DESIGN LECTURER): Encouraged healthy lifestyle, good nutrition and exercise. Encouraged Calcium and Vitamin D and weight bearing exercise for bone health. Reviewed immunizations Reviewed age appropirate screenings. Acute pain of right knee 05/19/2023 Assessment & Plan (11/18/2023 12:06 AM CDT): Patient fell on her knees recently. Will x-ray and follow-up pending the results Assessment & Plan (05/31/2023 11:41 PM SCENE AND LIGHTING DESIGN LECTURER): Patient has pain in the right knee. She fell couple weeks ago. She is still having tenderness and swelling. Will start with an x-ray of the knee and if symptoms persist may need to see orthopedics Rib pain 05/19/2023 08/25/2023 Assessment & Plan (05/31/2023 11:41 PM SCENE AND LIGHTING DESIGN LECTURER): Check x-ray of ribs. Increased pain since having a fall Acute cough 05/19/2023 08/25/2023 Assessment & Plan (05/31/2023 11:41 PM SCENE AND LIGHTING DESIGN LECTURER): Persistent cough. Kaylee Gomez sent to pharmacy. Use albuterol as needed. If symptoms persist may need to consider additional treatments Stress 01/19/2023 07/06/2024 Assessment & Plan (01/19/2023 12:41 AM CDT): Continue Wellbutrin XL 300 and Lexapro 10 mg Colon cancer screening 01/19/202303/21 Assessment & Plan (01/19/2023 1:04 AM CDT): Due for colonscopy . Return to Dr. Dickerson/Dr. Monte Medicare annual wellness visit, subsequent 01/19/2023 05/19/2023 Assessment & Plan (01/19/2023 1:05 AM CDT): Encouraged healthy lifestyle, good nutrition and exercise. Encouraged Calcium and Vitamin D and weight bearing exercise for bone health. Reviewed immunizations. Reviewed age appropirate screenings. Medicare Wellness Documentation is completed within the chart BMI 21.0-21.9, adult 01/16/2023 024 Assessment & Plan (08/17/2023 1:24 AM SCENE AND LIGHTING DESIGN LECTURER): Weight/BMI is in healthy range. Continue healthy lifestyle to maintain. Assessment & Plan (05/19/2023 9:25 AM SCENE AND LIGHTING DESIGN LECTURER): Weight/BMI is in healthy range. Continue healthy lifestyle to maintain. Assessment & Plan (01/16/2023 10:53 AM CDT): Weight/BMI is in healthy range. Continue healthy lifestyle to maintain. BMI 20.0-20.9, adult 10/10/2022 023 Assessment & Plan (10/10/2022 10:27 AM CDT): Weight/BMI is in healthy range. Continue healthy lifestyle to maintain. COVID-19 05/18/2022 03/21/2023 Overview (05/18/2022): 04/2022 Assessment & Plan (05/18/2022 11:12 PM SCENE AND LIGHTING DESIGN LECTURER): Let pt know the newest CDC recommendations are as follows: Positive COVID: Stay home for at least 5 days and isolate from others in your home. Wear a well-fitted mask if you must be around others in your home. End isolation after 5 full days if you are fever-free for 24 hours (without the use of fever-reducing medication) and your symptoms are improving. Wear a well-fitted mask for 10 full days any time you are around others inside your home or in public. Do not go to places where you are unable to wear a mask. Avoid travel Avoid being around people who are at high risk Discussed mAb and Paxlovid including risks, benefits, alternatives side effects and proper use. She would like to monitor her sxs at this point and treat aggressively. Treat sxs with Tylenol, Cough/cold medication otc and add VitD 5,000IU daily and Zinc 50mg daily. Monitor sxs and call or go to the ER if has any of the following: --trouble breathing --persistent pain or pressure in the chest --new confusion --inability to wake or stay awake -- bluish lips or face Sore throat 05/18/2022 07/06/2024 Assessment & Plan (05/18/2022 11:12 PM SCENE AND LIGHTING DESIGN LECTURER): Let pt know the newest CDC recommendations are as follows: Positive COVID: Stay home for at least 5 days and isolate from others in your home. Wear a well-fitted mask if you must be around others in your home. End isolation after 5 full days if you are fever-free for 24 hours (without the use of fever-reducing medication) and your symptoms are improving. Wear a well-fitted mask for 10 full days any time you are around others inside your home or in public. Do not go to places where you are unable to wear a mask. Avoid travel Avoid being around people who are at high risk Discussed mAb and Paxlovid including risks, benefits, alternatives side effects and proper use. She would like to monitor her sxs at this point and treat aggressively. Treat sxs with Tylenol, Cough/cold medication otc and add VitD 5,000IU daily and Zinc 50mg daily. Monitor sxs and call or go to the ER if has any of the following: --trouble breathing --persistent pain or pressure in the chest --new confusion --inability to wake or stay awake -- bluish lips or face SOB (shortness of breath) 05/18/2022 Assessment & Plan (05/18/2022 11:12 PM SCENE AND LIGHTING DESIGN LECTURER): Let pt know the newest CDC recommendations are as follows: Positive COVID: Stay home for at least 5 days and isolate from others in your home. Wear a well-fitted mask if you must be around others in your home. End isolation after 5 full days if you are fever-free for 24 hours (without the use of fever-reducing medication) and your symptoms are improving. Wear a well-fitted mask for 10 full days any time you are around others inside your home or in public. Do not go to places where you are unable to wear a mask. Avoid travel Avoid being around people who are at high risk Discussed Marco and Missy including risks, benefits, alternatives side effects and proper use. She would like to monitor her sxs at this point and treat aggressively. Treat sxs with Tylenol, Cough/cold medication otc and add VitD 5,000IU daily and Zinc 50mg daily. Monitor sxs and call or go to the ER if has any of the following: --trouble breathing --persistent pain or pressure in the chest --new confusion --inability to wake or stay awake -- bluish lips or face Nasal congestion 05/18/2022 07/06/2024 Assessment & Plan (05/18/2022 11:12 PM SCENE AND LIGHTING DESIGN LECTURER): Let pt know the newest CDC recommendations are as follows: Positive COVID: Stay home for at least 5 days and isolate from others in your home. Wear a well-fitted mask if you must be around others in your home. End isolation after 5 full days if you are fever-free for 24 hours (without the use of fever-reducing medication) and your symptoms are improving. Wear a well-fitted mask for 10 full days any time you are around others inside your home or in public. Do not go to places where you are unable to wear a mask. Avoid travel Avoid being around people who are at high risk Discussed mAb and Paxlovid including risks, benefits, alternatives side effects and proper use. She would like to monitor her sxs at this point and treat aggressively. Treat sxs with Tylenol, Cough/cold medication otc and add VitD 5,000IU daily and Zinc 50mg daily. Monitor sxs and call or go to the ER if has any of the following: --trouble breathing --persistent pain or pressure in the chest --new confusion --inability to wake or stay awake -- bluish lips or face Acute cough 05/18/2022 03/21/2023 Assessment & Plan (05/18/2022 11:12 PM SCENE AND LIGHTING DESIGN LECTURER): Let pt know the newest CDC recommendations are as follows: Positive COVID: Stay home for at least 5 days and isolate from others in your home. Wear a well-fitted mask if you must be around others in your home. End isolation after 5 full days if you are fever-free for 24 hours (without the use of fever-reducing medication) and your symptoms are improving. Wear a well-fitted mask for 10 full days any time you are around others inside your home or in public. Do not go to places where you are unable to wear a mask. Avoid travel Avoid being around people who are at high risk Discussed mAb and Paxlovid including risks, benefits, alternatives side effects and proper use. She would like to monitor her sxs at this point and treat aggressively. Treat sxs with Tylenol, Cough/cold medication otc and add VitD 5,000IU daily and Zinc 50mg daily. Monitor sxs and call or go to the ER if has any of the following: --trouble breathing --persistent pain or pressure in the chest --new confusion --inability to wake or stay awake -- bluish lips or face Body mass index (BMI) of 20.0-20.9 in adult 03/31/2022 07/21/2022 Assessment & Plan (03/31/2022 10:21 AM CDT): Weight/BMI is in healthy range. Continue healthy lifestyle to maintain. Stage 3a chronic kidney disease 02/15/2022 05/19/2023 Assessment & Plan (01/19/2023 12:42 AM CDT): Avoid nephrotoxic drugs including NSAIDs. Monitor labs. Assessment & Plan (10/10/2022 10:34 PM CDT): Avoid nephrotoxic drugs including NSAIDs. Monitor labs. Recheck labs Assessment & Plan (07/21/2022 10:05 PM SCENE AND LIGHTING DESIGN LECTURER): Avoid nephrotoxic drugs including NSAIDs. Monitor labs. Closed fracture of one rib o f left side with routine healing 02/11/2022 03/21/2023 Assessment & Plan (03/31/2022 10:21 AM CDT): Patient's symptoms continue to improve. She still has some localized tenderness at the side of the rib fracture but breathing much easier. So requests refills of Flexeril to use at bedtime as she still has some discomfort during that sleeping. . Appears as though the pneumothorax and the pneumonias have both completely resolved. Continue to observe and follow-up if symptoms worsen or return. Assessment & Plan (02/11/2022 12:24 PM CDT): Continue to with inspiratory spirometry and monitoring her breathing closely. She has pain control as still available. Can even use a lidocaine patch to the area. Will recheck chest x-ray in about 3-4 weeks for resolution of the pneumonia as well as monitoring of the rib fracture. Advised can take anywhere from 4-6 weeks to get healing of this rib fracture. History of pneumothorax 02/11/2022 09/2 02/2023 Assessment & Plan (03/31/2022 10:21 AM CDT): Patient's symptoms continue to improve. She still has some localized tenderness at the side of the rib fracture but breathing much easier. So requests refills of Flexeril to use at bedtime as she still has some discomfort during that sleeping. . Appears as though the pneumothorax and the pneumonias have both completely resolved. Continue to observe and follow-up if symptoms worsen or return. Assessment & Plan (02/11/2022 12:24 PM CDT): Spontaneous pneumothorax after fall. Did not require chest tube. Repeat x-ray in the hospital showed improvement in almost resolution of the pneumothorax. Will continue to monitor History of pneumonia 02/11/2022 023 Assessment & Plan (03/31/2022 10:21 AM CDT): Patient's symptoms continue to improve. She still has some localized tenderness at the side of the rib fracture but breathing much easier. So requests refills of Flexeril to use at bedtime as she still has some discomfort during that sleeping. . Appears as though the pneumothorax and the pneumonias have both completely resolved. Continue to observe and follow-up if symptoms worsen or return. Assessment & Plan (02/11/2022 12:24 PM CDT): Patient has completed her antibiotic. Stressed to continue with breathing exercises and monitoring closely. If she begins running a fever notes green production of cough or any other additional symptoms she is to follow up immediately. Will recheck chest x-ray in 3 weeks for resolution. Medicare annual wellness visit, initial 01/21/2022 08/17/2023 Assessment & Plan (01/21/2022 12:14 AM CDT): Encouraged healthy lifestyle, good nutrition and exercise. Encouraged Calcium and Vitamin D and weight bearing exercise for bone health. Reviewed immunizations. Reviewed age appropirate screenings. Medicare Wellness Documentation is completed within the chart Menopause 01/21/2022 07/06/2024 Assessment & Plan (01/21/2022 12:14 AM CDT): Check DEXA Chronic bilateral low back p ain without sciatica 01/21/2022 07/06/2024 Assessment & Plan (04/19/2024 7:57 AM CDT): Continue cyclobenzaprine as needed. New prescription sent to pharmacy Assessment & Plan (02/02/2024 6:31 PM CDT): Encouraged Tylenol -- avoid NSAIDs due to her kidney function Topical preparations like Lidocaine patches, Biofreeze, ICYHOT etc as needed. Heat, stretching Avoid long periods of sitting/laying. Encouraged PT. Followup if has any problems controlling bowels or bladder or if sxs worsen. Assessment & Plan (08/25/2023 10:54 AM SCENE AND LIGHTING DESIGN LECTURER): Flexeril prn Assessment & Plan (09/08/2022 4:05 PM CDT): Chronic back pain. Has relief with Flexeril p.r.n.. Assessment & Plan (01/21/2022 12:16 AM CDT): This is a significant, separately identifiable problem that was evaluated and managed on the same day as the wellness exam Encouraged NSAIDS (if able to safely tolerate) or Tylenol. Topical preparations like Lidocaine patches, Biofreeze, ICYHOT etc as needed. Heat, stretching Avoid long periods of sitting/laying. Encouraged PT. Followup if has any problems controlling bowels or bladder or if sxs worsen. Other chest pain 12/06/2021 07/06/2024 Respiratory infection 10/08/20212024 Assessment & Plan (10/08/2021 11:00 AM CDT): Start antibiotic, antihistamine (Claritin OR Zyrtec), Mucinex 12hour and Steroid nasal spray (Flonase). Push fluids. Rest. Supportive care. If sxs worsen or don\'t improve, pt is to followup in the office. Continue with Symbicort and Albuterol If she require more of the albuterol or notes more difficulty breathing she is to go to the ER. She voices understanding. BMI 21.0-21.9, adult 04/12/2021 023 Assessment & Plan (09/08/2022 4:04 PM CDT): Weight/BMI is in healthy range. Continue healthy lifestyle to maintain. Assessment & Plan (07/16/2022 2:03 PM SCENE AND LIGHTING DESIGN LECTURER): Weight/BMI is in healthy range. Continue healthy lifestyle to maintain. Assessment & Plan (01/21/2022 12:14 AM CDT): Weight/BMI is in healthy range. Continue healthy lifestyle to maintain. Assessment & Plan (04/14/2021 12:04 PM CDT): Insert good BMI 20.0-20.9, adult 04/06/2021 021 Assessment & Plan (04/06/2021 10:15 AM CDT): Weight/BMI is in healthy range. Continue healthy lifestyle to maintain. BMI 20.0-20.9, adult 02/16/2021 Assessment & Plan (02/16/2021 9:25 AM CDT): Weight/BMI is in healthy range. Continue healthy lifestyle to maintain. Adult BMI <19 kg/sq m 01/19/20212020 Assessment & Plan (01/21/2021 9:01 PM CDT): Weight/BMI is in healthy range. Continue healthy lifestyle to maintain. Dyslipidemia 01/03/2021 12/06/2021 Assessment & Plan (04/07/2021 8:36 PM CDT): Encouraged patient to follow fat/low chol diet like the Mediterranean diet. Increase good fats in the diet. Increase exercise. Monitor labs as needed. Continue statin BMI less than 19,adult 12/12/202001/19 Assessment & Plan (12/12/2020 2:19 PM CDT): Weight/BMI is in healthy range. Continue healthy lifestyle to maintain. Hypertension, renal disease, stage 1-4 or unspecified chronic kidney disease 12/12/202005/19 Assessment & Plan (01/19/2023 12:56 AM CDT): Bp is stable/in acceptable range for any co-morbidities. Encouraged to limit sodium intake and exercise for weight control. Avoid nephrotoxic drugs including NSAIDs. Monitor labs. Continue carvedilol 12.5 b.i.d. 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 Monitor labs. Bp is stable/in acceptable range for any co-morbidities. Encouraged to limit sodium intake and exercise for weight control. Continue losartan 100, Coreg 12.5 b.i.d. Assessment & Plan (06/22/2021 10:23 PM SCENE AND LIGHTING DESIGN LECTURER): Bp is stable/in acceptable range for any co-morbidities. Encouraged to limit sodium intake and exercise for weight control. Continue current plan Assessment & Plan (04/14/2021 12:03 PM CDT): Bp is stable/in acceptable range for any co-morbidities. Encouraged to limit sodium intake and exercise for weight control. Continue Coreg 12.5 mg, Hydrochlorothiazide/triamterene and Increase losartan to 100 mg. Continue to monitor closely follow-up in a couple weeks to recheck blood pressure Assessment & Plan (04/07/2021 8:35 PM CDT): Encouraged to limit sodium intake and exercise for weight control. BP is still not controlled. Readings are also high at home. Currently on carvedilol 6.25 b.i.d. and triamterene hydrochlorothiazide and losartan 50. Due to her renal function will go ahead and increase the carvedilol to 12.5 mg b.i.d.. She can take 2/6 2 5s until they are gone. Will have her back in a week to recheck her blood pressure with the nurse. Reviewed with her this may affect her pulls and that if she feels dizzy or lightheaded she is take her pulls and if it is less than 50 call the office immediately. If her blood pressure drops below 110 systolic she is also to give us a call. Will recheck CMP in couple of weeks and if it is still elevated may consider referral to Nephrology. Assessment & Plan (02/17/2021 11:51 AM CDT): Bp is stable/in acceptable range for any co-morbidities. Encouraged to limit sodium intake and exercise for weight control. Continue current regimen Refill sent Assessment & Plan (01/21/2021 9:01 PM CDT): Bp is stable/in acceptable range for any co-morbidities. Encouraged to limit sodium intake and exercise for weight control. Continue Coreg, losartan and Triamterene/HCTZ Assessment & Plan (12/16/2020 10:31 PM CDT): Bp is stable/in acceptable range for any co-morbidities. Encouraged to limit sodium intake and exercise for weight control. On Coreg, losartan and Triamterene/HCTZ. I instructed her to stop the metoprolol as couldn't understand why she is on 2 beta blockers so will monitor with just the coreg Cigarette smoker 12/12/2020 05/05/2024 Assessment & Plan (11/18/2023 12:03 AM CDT): Encouraged smoking cessation. Discussed 3 minutes. Reviewed options for assistance with cessation. Reviewed manager intermediate sequela associated with smoking. Pt declines assistance at this time but may contact the office at anytime for further help as they desire. Assessment & Plan (08/17/2023 1:26 AM SCENE AND LIGHTING DESIGN LECTURER): Encouraged smoking cessation. Discussed 3 minutes. Reviewed options for assistance with cessation. Reviewed group home sequela associated with smoking. Pt declines assistance at this time but may contact the office at anytime for further help as they desire. Continue Wellbutrin XL 300 Lexapro Assessment & Plan (05/31/2023 11:38 PM SCENE AND LIGHTING DESIGN LECTURER): Encouraged smoking cessation. Discussed 3 minutes. Reviewed options for assistance with cessation. Reviewed group home sequela associated with smoking. Pt declines assistance at this time but may contact the office at anytime for further help as they desire. She is already on Wellbutrin XL 300 Assessment & Plan (01/19/2023 12:42 AM CDT): Encouraged smoking cessation. Discussed 3 minutes. Reviewed options for assistance with cessation. Reviewed manager intermediate sequela associated with smoking. Pt declines assistance at this time but may contact the office at anytime for further help as they desire. Assessment & Plan (10/10/2022 10:34 PM CDT): Encouraged smoking cessation. Discussed 3 minutes. Reviewed options for assistance with cessation. Reviewed manager intermediate sequela associated with smoking. Pt declines assistance at this time but may contact the office at anytime for further help as they desire. Assessment & Plan (02/11/2022 12:23 PM CDT): Continue smoking cessation with with Wellbutrin. Advised could still add on a nicotine patch at 7mg if having cravings. Assessment & Plan (01/21/2022 12:14 AM CDT): Encouraged smoking cessation. Discussed 3 minutes. Reviewed options for assistance with cessation. Reviewed manager intermediate sequela associated with smoking. Pt declines assistance at this time but may contact the office at anytime for further help as they desire. Assessment & Plan (04/14/2021 12:04 PM CDT): Encouraged smoking cessation. Discussed 3 minutes. Reviewed options for assistance with cessation. Reviewed manager intermediate sequela associated with smoking. So he working on cessation on her own. May call if needs assistance. Assessment & Plan (04/07/2021 8:36 PM CDT): Patient continues with cessation. She is currently on Wellbutrin and continue to taper down. Assessment & Plan (02/17/2021 11:52 AM CDT): Continue Wellbutrin. Tolerating well. Followup 2 months to reassess and FLU vaccine Assessment & Plan (01/21/2021 9:02 PM CDT): Pt desires assistance with cessation. Discussed options at length. Will start Wellbutrin. No seizure history. Reviewed risks, benefits, alternatives, side effects and proper use. Take first thing in the am to avoid sleep disturbances. Encouraged to decreased cigs as tolerated. Plan to stay on the Wellbutrin for 4-6 months, even if successful in cessation quickly. F.u if any increased emotional sxs or suicidal thoughts Assessment & Plan (12/16/2020 10:36 PM CDT): Encouraged smoking cessation. Discussed 3 minutes. Reviewed options for assistance with cessation. Reviewed manager intermediate sequela associated with smoking. Pt declines assistance at this time but may contact the office at anytime for further help as they desire. group home (current) use of a romatase inhibitors 08/24/2018 03/21/2023 Assessment & Plan (12/16/2020 10:35 PM CDT): Per ONC Tobacco use 03/08/2015 12/12/2020 Arthralgia of hip 03/15/2014 07/06/2024 Encounters Date Type Department Care Team Description 03/07/2025 10:00 AM CDT Office Visit [address] [address] Yana Perrin PA Primary insomnia (Primary Dx); Anxiety; BMI 25.0-25.9,adult 01/10/2025 9:35 AM CDT - 01/10/2025 11:59 PM CDT Hospital Encounter [facility] - [facility] access [facility] Imaging Center [address] [place] [address] [place] [id number] Malignant neoplasm of upper-outer quadrant of right breast in female, estrogen receptor positive (HCC); History of bilateral mastectomy; Breast nodule Discharge Disposition: Discharge to home or self care 01/10/2025 Results Follow-Up [facility] [address] [place] [address] Ivette Whitfield NP Diagnostic Mammogram Right W [address] 01/05/2025 8:30 AM CDT Office Visit [address] [place] [address] Yana Perrin PA Medicare annual wellness visit, subsequent (Primary Dx); Other emphysema (HCC); Primary insomnia; Moderate episode of recurrent major depressive disorder (HCC); Anxiety; Pre-diabetes; Mixed hyperlipidemia; Chronic kidney disease, stage 3a (HCC); Osteopenia of multiple sites; Hypertension, renal disease, stage 1-4 or unspecified chronic kidney disease; Gastroesophageal reflux disease without esophagitis; 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; Cigarette smoker; Colon cancer screening; Post-menopause; BMI 25.0-25.9,adult 01/04/2025 Results Follow-Up [facility] [address] [address] Yana Perrin PA CBC with auto differential, Comprehensive metabolic panel, Hemoglobin A1c, Additional followed-up results: 3 from Last 3 Months Immunizations Immunization Administration Dates Next Due DTaP 06/23/2001 Influenza, Quadrivalent, Spl it, Preservative Free, Intramuscular 06/09/2014 Influenza, Trivalent, High D ose, Split, Preservative Free, Intramuscular 04/19/2024 Influenza, Unspecified 07/24/2023(Deferr ed: Patient decision),06/23/2023(Deferred: Patient Refused),07/24/2022(Deferred: Patient Refused),02/21/2022,03/26/2021, 021(Deferred: Patient Refused) Pneumococcal Conjugate Pcv20 07/24/2023 Tdap 02/22/2016 Surgical History Surgery Date Site/Laterality Comments MASTECTOMY 06/23/2014 - 06/22/2015 Bilateral BREAST RECONSTRUCTION 06/23/2014 - 06/22/2015 Bilateral implants HYSTERECTOMY CHOLECYSTECTOMY DILATION AND CURETTAGE, DIAG NOSTIC / THERAPEUTIC WRIST SURGERY ECTOPIC SURGERY ECTOPIC SURGERY SECTION ELBOW SURGERY BREAST BIOPSY 01/09/2015 Right Medical History Medical History Date Comments Breast cancer (HCC) Anxiety Depression Stomach ulcer due to nonsteroidal anti-inflammat ory drug (NSAID) HTN (hypertension) Heart murmur Breast cancer (HCC) Acid indigestion Pneumonia Gallstones Diverticulitis Broken rib 02/08/2022 left side Acute cough 05/18/2022 Colon cancer screening 01/19/2023 group home (current) use of aromatase inhibitors 08/24/2018 Closed fracture of one rib of left side with rou cristela healing 02/11/2022 Covid-19 05/18/202204/2022 History of pneumothorax 02/11/2022 History of pneumonia 02/11/2022 Osteoporosis Heart disease Family History Medical History Relation Name Comments Hypertension Brother Bim No Known Problems Daughter Acandrei Cancer Father Pawel Pancreatic cancer Father Pawel Non-Hodgkin's Lymphoma Maternal Grandfather Colon cancer Maternal Grandmother Anemia Mother Roopa Heart disease Paternal Grandfather Aldo Diabetes Paternal Grandmother Vivian Painter Breast cancer Sister 1 Kellen Cancer Sister 1 Kellen Cancer Sister 2 Nicole Non-Hodgkin's Lymphoma Sister 2 Nicole Obesity Sister 2 Nicole Endometrial cancer Neg Hx Ovarian cancer Neg Hx Thyroid cancer Neg Hx Relation Name Status Comments Brother Bim Alive Daughter Ackerterrell Alive Father Pawel (Age 50) Maternal Grandfather Maternal Grandmother Mother Roopa (Age 88) Paternal Grandfather Aldo Paternal Grandmother Vivian Painter Sister 1 Kellen Sister 2 Nicole Social History Tobacco Use Types Packs/Day Years Used Date Smoking Tobacco: Every Day Cigarettes 0.3 50 Smokeless Tobacco: Never Tobacco Cessation:Ready to Q uit: No; Counseling Given: No Comments:5 to 6 cigarettes a day. The pt. is currently working on quiting. Alcohol Use Standard Drinks/Week Comments Yes 0 (1 standard drink = 0.6 oz pur e alcohol) AUDIT-C Answer Date Recorded Q1: How often do you have a drink containing alcohol? Never 01/05/2025 Q2: How many drinks containi ng alcohol do you have on a typical day when you are drinking? Patient does not drink Q3: How often do you have si x or more drinks on one occasion? 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 Not on file Not on file Obstetrics History Last Filed Vital Signs Vital Sign Reading Time Taken Comments Blood Pressure 122/70 03/07/2025 9:49 AM CDT Pulse 61 03/07/2025 9:49 AM CDT Temperature 36.7 C (98 F) 03/07/2025 9:49 AM CDT Respiratory Rate 18 12/20/2024 8:32 AM CDT Oxygen Saturation 97% 03/07/2025 9:49 AM CDT Inhaled Oxygen Concentration - - Weight 77.6 kg (171 lb) 03/07/2025 9:49 AM CDT Height 175.3 cm (5' 9) 03/07/2025 9:49 AM CDT Body Mass Index 25.25 03/07/2025 9:49 AM CDT Plan of Treatment Health Maintenance Due Date Last Done Comments Hepatitis C Screening 1960 Hepatitis B Screening 01/31/1976 Zoster Vaccine (1 of 2) 01/31/2008 Colon Cancer Screening-Colonoscopy 07/13/2020 07/13/2010, 07/03/2010, 03/02/2008, Additional history exists Osteoporosis Screening-Bone Density Scan 08/26/2024 08/26/2022, 05/12/2020, 04/08/2019, Additional history exists Influenza Vaccine (#1) 2025 , 02/21/2022, 03/26/2021, Additional history exists Lung Cancer Screening 12/21/2025 12/20/2024 , 10/13/2023, 09/23/2022, Additional history exists Well Visit 65+ 01/05/2026 01/05/2025, 06/23, 01/20/2024, Additional history exists DTaP/Tdap/Td Vaccine (3 - Td or Tdap) 02/21/2026 02/22/2016, 06/23/2001 Depression Screening 03/07/2026 03/07/2025, 01/05/2025, 01/05/2025, Additional history exists Fall Risk Assessment 03/07/2026 03/07/2025, 01/05/2025, 07/06/2024, Additional history exists Colon Cancer Screening-CT Colonography Discontinued 07/13/2010, 07/03/2010, 03/02/2008, Additional history exists Colon Cancer Screening-DNA Stool Discontinued 07/13/2010, 07/03/2010, 03/02/2008, Additional history exists Colon Cancer Screening-FIT Discontinued 07/13, 07/03/2010, 03/02/2008, Additional history exists Colon Cancer Screening-Sigmoidoscopy Discontinued 07/13/2010, 07/03/2010, 03/02/2008, Additional history exists Breast Cancer Screening-Mammogram Discontinued 015, 12/09/2014 Pneumococcal vaccine 65+ Completed 07/24/2023 Procedures Procedure Name Priority Date/Time Associated Diagnosis Comments DIAGNOSTIC MAMMOGRAM RIGHT W JUAN PABLO Schedule RAMIRO, Read RAMIRO (Appt Today, Awaiting Results) 01/10/2025 9:53 AM CDT Malignant neoplasm of upper-outer quadrant of right breast in female, estrogen receptor positive (HCC) History of bilateral mastectomy Breast nodule VITAMIN B12 Routine 01/03/2025 11:01 AM CDT Fatigue, unspecified type TSH Routine 01/03/2025 11:01 AM CDT Fatigue, unspecified type LIPID PANEL Routine 01/03/2025 11:01 AM CDT Mixed hyperlipidemia HEMOGLOBIN A1C Routine 01/03/2025 11:01 AM CDT Hyperglycemia COMPREHENSIVE METABOLIC PANEL Routine 01/03/2025 11:01 AM CDT Mixed hyperlipidemia CBC WITH AUTO DIFFERENTIAL Routine 01/03/2025 11:01 AM CDT Fatigue, unspecified type CT LUNG CANCER SCREENING Schedule RAMIRO, Read RAMIRO (Appt Today, Awaiting Results) 12/20/2024 8:01 AM CDT Cigarette nicotine dependence with nicotine-induced disorder DEXA AXIAL SKELETON BONE DENSITY 1 OR MORE SITES Schedule Routine, Read Routine (OP Routine) 08/26/2022 10:47 AM SCENE AND LIGHTING DESIGN LECTURER Malignant neoplasm of female breast, unspecified estrogen receptor status, unspecified laterality, unspecified site of breast (HCC) HM COLONOSCOPY Routine 07/13/2010 from Last 3 Months or Most Recently Relevant to Health Maintenance Results * Diagnostic Mammogram Right W Juan Pablo (01/10/2025 9:53 AM CDT) Anatomical Region Laterality Modality Breast Right Mammography 01/10/2025 10:0 3 AM CDT Impressions 01/10/2025 11:47 AM CDT No mammographic evidence of malignancy. Tiny fat-containing masses subjacent to a palpable marker in the right breast are unchanged and represent fat necrosis. OVERALL FINAL ASSESSMENT: BI-RADS Category 2: Benign. RECOMMENDATION: No regular screening is required given the patient's bilateral mastectomies. If the patient develops any new palpable findings or areas of concern, they can present as needed for further evaluation. Dictated by: Rajinder Fry M.D. The radiology attending physician has personally reviewed this study, and had reviewed and/or edited this written report and agrees with it. Electronically signed by: Tiana Bravo M.D. Narrative 01/10/2025 11:47 AM CDT EXAMINATION: RIGHT UNILATERAL DIGITAL DIAGNOSTIC MAMMOGRAM AND DIGITAL BREAST TOMOSYNTHESIS HISTORY: 64-year-old woman with history of bilateral mastectomies in 2014 for invasive lobular carcinoma of the right breast. Now presenting for six-month follow-up of probably benign fat-containing masses in the right mastectomy scar on the right chest wall. COMPARISON: Right mammography and ultrasound dated 04/22/2024, right mammography dated 07/08/2024 TECHNIQUE: Full field digital mammographic views of the RIGHT breast were performed, including computer aided detection (CAD) and digital breast tomosynthesis (DBT). BREAST PARENCHYMAL COMPOSITION: The breasts are almost entirely fatty. FINDINGS: The palpable marker in the right breast/chest wall overlies unchanged fat-containing tiny masses with the appearance of fat necrosis. No mammographic evidence of malignancy. Ivette Whitfield NP IMG MAMMO PROCEDURES Fi nal Result * CBC with auto differential (01/03/2025 11:01 AM CDT) WBC 6.9 3.8 - 10.8 Thousand/u L [facility] RBC, POC 4.07 3.80 - 5.10 Million/uL [facility] Hgb 12.9 11.7 - 15.5 g/dL [facility] Hct 40.3 35.0 - 45.0 % [facility] MCV 99.0 80.0 - 100.0 fL [employer] MCH 31.7 27.0 - 33.0 pg [employer] MCHC 32.0 32.0 - 36.0 g/dL [employer] Comment: For adults, a slight decrease in the calculated MCHC value (in the range of 30 to 32 g/dL) is most likely not clinically significant; however, it should be interpreted with caution in correlation with other red cell parameters and the patient's clinical condition. Rdw 13.3 11.0 - 15.0 % [employer] Platelets 306 140 - 400 Thousand/u L [employer] MPV 10.4 7.5 - 12.5 fL [employer] Neutrophils, abs 4,285 1,500 - 7,800 cells/uL [employer] [facility] Lymphocytes, abs 1,870 850 - 3,900 cells/uL [employer] Monocyte abs 524 200 - 950 cells/uL [employer] Eosinophils, abs 179 15 - 500 cells/uL [employer] Basophils, abs 41 0 - 200 cells/uL [employer] Neutrophils 62.1 % [employer] Lymphocyte pct 27.1 % [employer] Monocytes 7.6 % [employer] Eosinophils 2.6 % [employer] Basophils 0.6 % [employer] Blood 01/03/2025 11:0 1 AM CDT 01/03/2025 11:01 AM CDT Narrative tribr - 01/04/2025 6:17 AM CDT FASTING:YES FASTING: YES Yana FRENCH LAB BLOOD ORDERABLES Final Result [facility] [address] [place] [address] * TSH (01/03/2025 11:01 AM CDT) TSH 1.20 0.40 - 4.50 mIU/L [employer] [facility] Blood 01/03/2025 11:0 1 AM CDT 01/03/2025 11:01 AM CDT Narrative QUEST - 01/04/2025 6:17 AM CDT FASTING:YES FASTING: YES Yana FRENCH LAB BLOOD ORDERABLES Final Result Performing Organization Address [facility] Co de Phone Number [facility] [address] [place] [address] * (ABNORMAL) Hemoglobin A1c (01/03/2025 11:01 AM CDT) Hgb A1C 5.7(H) <5.7 % of total Hgb [facility] Comment: For someone without known diabetes, a hemoglobin A1c value between 5.7% and 6.4% is consistent with prediabetes and should be confirmed with a follow-up test. For someone with known diabetes, a value <7% indicates that their diabetes is well controlled. A1c targets should be individualized based on duration of diabetes, age, comorbid conditions, and other considerations. This assay result is consistent with an increased risk of diabetes. Currently, no consensus exists regarding use of hemoglobin A1c for diagnosis of diabetes for children. Blood 01/03/2025 11:0 1 AM CDT 01/03/2025 11:01 AM CDT Narrative [facility]ST - 01/04/2025 6:17 AM CDT FASTING:YES FASTING: YES Yana FRENCH LAB BLOOD ORDERABLES Final Result Performing Organization Address [facility] de Phone Number [facility] [address] [place] [address] * Vitamin B12 (01/03/2025 11:01 AM CDT) Vitamin B12 412 200 - 1,100 pg/mL [facility] Blood 01/03/2025 11:0 1 AM CDT 01/03/2025 11:01 AM CDT Narrative QUEST - 01/04/2025 6:17 AM CDT FASTING:YES FASTING: YES Yana FRENCH LAB BLOOD ORDERABLES Final Result Performing Organization Address [facility] Co de Phone Number [facility] [address] [place] [address] * (ABNORMAL) Lipid panel (01/03/2025 11:01 AM CDT) Cholesterol 150 <200 mg/dL [facility] HDL 40(L) > OR = 50 mg/dL Cat [facility]abblyGracielaDianna cindy [facility] Triglycerides 266(H) <150 mg/dL [facility] Comment: If a non-fasting specimen was collected, consider repeat triglyceride testing on a fasting specimen if clinically indicated. Ximena et al. J. of Clin. Lipidol. 2015;9:129-169. LDL 75 mg/dL (calc) [facility] Comment: Reference range: <100 Desirable range <100 mg/dL for primary prevention; <70 mg/dL for patients with CHD or diabetic patients with > or = 2 CHD risk factors. LDL-C is now calculated using the Pete calculation, which is a validated novel method providing better accuracy than the Friedewald equation in the estimation of LDL-C. Shemar MOORE et al. HAWA. 2013;310(19): 8533-9281 (http://education.Okairos/faq/VCB053) Chol/HDL ratio 3.8 <5.0 (calc) Cat GraceGracielaDianna cindy [facility] Non-HDL, (LDL+VLDL) 110 <130 mg/dL (calc) [facility]aciel[facility]ianna [facility] Comment: For patients with diabetes plus 1 major ASCVD risk factor, treating to a non-HDL-C goal of <100 mg/dL (LDL-C of <70 mg/dL) is considered a therapeutic option. Blood 01/03/2025 11:0 1 AM CDT 01/03/2025 11:01 AM CDT Narrative QUEST - 01/04/2025 6:17 AM CDT FASTING:YES FASTING: YES us Yana FRENCH LAB BLOOD ORDERABLES Final Result CAT [facility] [address] [place] [address] * (ABNORMAL) Comprehensive metabolic panel (01/03/2025 11:01 AM CDT) [facility] Glucose 97 65 - 99 mg/dL Cat GraceDianna [facility] Comment: Fasting reference interval BUN 16 7 - 25 mg/dL Cat [facility] Creatinine 1.29(H) 0.50 - 1.05 mg/dL Cat [facility] eGFR 46(L) > OR = 60 mL/min/1.7 3m2 Cat [facility] BUN/creat ratio 12 6 - 22 (calc) Cat [facility] Sodium 138 135 - 146 mmol/L Cat GraceDianna Monte[facility] Potassium, pl 3.7 3.5 - 5.3 mmol/L Cat GraceDianna [facility] Chloride 100 98 - 110 mmol/L Cat Monteiro CO2 31 20 - 32 mmol/L Cat GraceDianna Monteiro Calcium 9.3 8.6 - 10.4 mg/dL Cat GraceDianna Monte[facility] Protein, sr 6.3 6.1 - 8.1 g/dL Cat GraceDianna [facility] Albumin 3.8 3.6 - 5.1 g/dL Cat GraceDianna Monteiro GLOBULIN 2.5 1.9 - 3.7 g/dL (calc) Cat GraceDianna Monteiro Alb/glob ratio 1.5 1.0 - 2.5 (calc) Cat [facility] Bilirubin, total 0.3 0.2 - 1.2 mg/dL Cat GraceDianna [facility] Alk phos 77 37 - 153 U/L Cat GraceDianna Monteiro AST 15 10 - 35 U/L Cat GraceDianna Monteiro ALT (SGPT) 11 6 - 29 U/L Cat Monteiro Blood 01/03/2025 11:0 1 AM CDT 01/03/2025 11:01 AM CDT Narrative QUEST - 01/04/2025 6:17 AM CDT FASTING:YES FASTING: YES Yana FRENCH LAB BLOOD ORDERABLES Final Result [facility]St [facility] [address] [place] [address] * CT Lung Cancer Screening (12/20/2024 8:01 AM CDT) Anatomical Region Laterality Modality Chest N/A Computed Tomogra phy 12/20/2024 8:15 AM CDT Impressions 12/20/2024 8:15 AM CDT 1. LungRADS Category 2 (benign) . Recommend Low dose Screening CT of chest in 12 months. LungRADS Categories: 1 - Negative (no nodules, or only benign calcified or fat-containing nodules) 2 - Benign Appearance or Behavior (nodules with very low likelihood of becoming a clinically active cancer due to size or lack of growth) 3 - Probably Benign (probably benign findings-short term follow up suggested; includes nodules with a low likelihood of becoming a clinically active cancer) 4A,4B,4X - Suspicious (category 3 or 4 nodules with findings for which additional diagnostic testing and/or tissue sampling is recommended) S - Other (clinically significant or potentially clinically significant findings (non-lung cancer) C - Prior Lung Cancer (modifier for patients with a prior diagnosis of lung cancer who return to screening) Electronically signed by: Gurinder Kennedy M.D. Narrative 12/20/2024 8:15 AM CDT EXAMINATION: Lung cancer screening CT of the Chest without intravenous contrast HISTORY: Lung Cancer Screening TECHNIQUE: Low radiation dose chest protocol. No intravenous contrast. Reconstructed slice width 1.[address] Dose Index 1.9 mGy. Dose-length product 77 mGy-cm. COMPARISON: 10/13/2023 FINDINGS: No supraclavicular, axillary or mediastinal lymphadenopathy is seen. Bilateral breast implants are noted. The ascending aorta is again measured at 4 x 4 centimeters orthogonal to the long axis. The heart size is normal. Images of the upper abdomen show normal adrenal glands. Patient is post cholecystectomy. No pleural or pericardial effusion. Again seen are findings of respiratory bronchiolitis. Again noted are noncalcified pulmonary nodules: 1. Within the right upper lobe a groundglass nodule is seen. This again is noted to measure 7 mm at slice position -437.2. It is without change. 2. A 3 mm groundglass nodule is seen within the right right upper lobe at slice position 430.2. This is also without change. 3. Groundglass nodule with some cystic regions at -440 the left upper lobe is also without change. 4. Groundglass nodule within the left upper lobe at slice position -514.9 is also without change measuring 6.5 mm. The bone windows do not demonstrate any osseous lesion. Procedure Note Gurinder Kennedy MD - 12/20/2024 EXAMINATION: Lung cancer screening CT of the Chest without intravenous contrast HISTORY: Lung Cancer Screening TECHNIQUE: Low radiation dose chest protocol. No intravenous contrast. Reconstructed slice width 1.[address] Dose Index 1.9 mGy. Dose-length product 77 mGy-cm. COMPARISON: 10/13/2023 FINDINGS: No supraclavicular, axillary or mediastinal lymphadenopathy is seen. Bilateral breast implants are noted. The ascending aorta is again measured at 4 x 4 centimeters orthogonal to the long axis. The heart size is normal. Images of the upper abdomen show normal adrenal glands. Patient is post cholecystectomy. No pleural or pericardial effusion. Again seen are findings of respiratory bronchiolitis. Again noted are noncalcified pulmonary nodules: 1. Within the right upper lobe a groundglass nodule is seen. This again is noted to measure 7 mm at slice position -437.2. It is without change. 2. A 3 mm groundglass nodule is seen within the right right upper lobe at slice position 430.2. This is also without change. 3. Groundglass nodule with some cystic regions at -440 the left upper lobe is also without change. 4. Groundglass nodule within the left upper lobe at slice position -514.9 is also without change measuring 6.5 mm. The bone windows do not demonstrate any osseous lesion. IMPRESSION: 1. LungRADS Category 2 (benign) . Recommend Low dose Screening CT of chest in 12 months. LungRADS Categories: 1 - Negative (no nodules, or only benign calcified or fat-containing nodules) 2 - Benign Appearance or Behavior (nodules with very low likelihood of becoming a clinically active cancer due to size or lack of growth) 3 - Probably Benign (probably benign findings-short term follow up suggested; includes nodules with a low likelihood of becoming a clinically active cancer) 4A,4B,4X - Suspicious (category 3 or 4 nodules with findings for which additional diagnostic testing and/or tissue sampling is recommended) S - Other (clinically significant or potentially clinically significant findings (non-lung cancer) C - Prior Lung Cancer (modifier for patients with a prior diagnosis of lung cancer who return to screening) Electronically signed by: Gurinder Kennedy M.D. 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 Based on machine cross-calibration and precision studies the least significant changes of this densitometer is 0.024 g/cm2 at the spine, 0.020 g/cm2 at the total proximal femur, and 0.014g/cm2 at the forearm. HISTORY: This is a 62 y.o. postmenopausal female with a history of breast cancer, osteoporosis, and vitamin D deficiency. She reports that she has been smoking cigarettes. She has a 12.50 pack-year smoking history. She has never used smokeless tobacco. Currently on treatment with calcium, vitamin D, and diuretics, previously treated with zoledronic acid (Zometa) and aromatase inhibitor, and current complaint of arm pain, back pain, neck pain, and leg pain. INDICATIONS: Menopause status, history of prior wrist fracture, vitamin D deficiency, and history of osteoporosis. FINDINGS: BONE MINERAL DENSITY OF THE LUMBAR SPINE Bone Mineral Density (BMD) of the lumbar spine was measured from L1-L4 and the average density was calculated to be 0.892 gm/cm2. This corresponds to a T-score (standard deviations from the mean of young adults) of -1.4. When compared to the previous study of 05/12/2020 there has been a 0.049 gm/cm (5.8%) increase in bone density that is considered significant. BONE MINERAL DENSITY OF THE PROXIMAL FEMUR Bone Mineral Density (BMD) of the left hip total was found to be 0.721 gm/cm2. This corresponds to a T-score standard deviations from the mean of young adults of -1.8. Femoral neck is 0.585 gm/cm2 with a T-score (standard deviations from the mean of young adults) of -2.4. When compared to the previous study of 05/12/2020 there has been a 0.024 gm/cm (3.5%) increase in bone density that is considered significant. SUMMARY: Bone mineral density shows evidence of low bone mass at the lumbar spine and proximal femur and moderately increased fracture risk (Osteopenia). There has been a significant increase in bone density since previous measurement. ADDITIONAL COMMENTS: Postmenopausal Women and Men Over 50: Diagnostic criteria: Osteoporosis: BMD at or below -2.5 T-score; Osteopenia (low bone mass): BMD between -1.0 and -2.5 T-score. If the patient has a history of a fragility fracture, a fracture that occurred with trauma equivalent to a fall from a standing position or less, then the diagnosis is osteoporosis regardless of bone density. The history and data sections of the bone mineral density scan were prepared by Leola Wolfe) KLARISSA who is accredited by the International Society of Clinical Densitometry. The overall patient assessment and scan interpretation were performed by Abby Vaughn M.D. who is certified by the International Society of Clinical Densitometry. [id number] Karyna Young NP IMG DXA PROCEDURES Final Resu lt * (ABNORMAL) HM COLONOSCOPY (07/13/2010) Historical Provider HEALTH MAINTENANCE Edited Result - Final from Last 3 Months or Most Recently Relevant to Health Maintenance Insurance [facility] MEDICARE [place] PREF[place]ED A[place] MEDICARE Care Teams Disassembler Product Relationship Specialty Start Date End Date Yana Perrin PA [address] [place] [address] PCP - General Internal Medicine 12/12/20 Juju Leonard MD [address] [facility] [address] [place] [address] Medical Oncologist/Lacquer Pin Press Operator Medical Oncology 08/23/20
--- OUTSIDE RECORDS SUMMARY | 2025-03-23 00:28 | XMS_ITS | Encounter Summary ---
Author Organization [facility] Healthcare Address [address] [place] [address] Care Team Providers Care Weigher And Grader Name Role Phone Juju Leonard MD Unavailable [phone]- [phone] Yana Perrin Primary Care Provider [phone]- [phone] Encounter Details Date Type Department Care Team ([facility] st Contact Info) Description 04/26/2024 Orders Only [facility] [place] Health Information Management [address] [place] [id number] Fe Alonso MD [address] [address] Social History Tobacco Use Types Packs/Day Years Used Date Smoking Tobacco: Every Day Cigarettes 0.3 50 Smokeless Tobacco: Never Comments:5 to 6 cigarettes a day. The pt. is currently working on quiting. Alcohol Use Standard Drinks/Week Comments Yes 0 (1 standard drink = 0.6 oz pur e alcohol) AUDIT-C Answer Date Recorded Q1: How often do you have a drink containing alc ohol? Never 08/25/2023 Q2: How many drinks containi ng alcohol do you have on a typical day when you are drinking? 1 or 2 08/25/2023 Q3: How often do you have six or more drinks on one occasion? 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 Not on file Not on file Not on file documented as of this encounter Plan of Treatment Not on file documented as of this encounter Procedures Procedure Name Priority Date/Time Associated Diagnosis Comments SCAN - RADIOLOGY/IMAGING 04/26/2024 documented in this encounter Results * SCAN - RADIOLOGY/IMAGING (04/26/2024) Anatomical Region Laterality Modality Other Fe Alonso MD Final Result documented in this encounter Visit Diagnoses Not on filedocumented in this encounter Care Teams Weigher And Grader Relationship Specialty Start Date End Date Yana Perrin PA [address] [facility] [address] [place] [address] PCP - General Internal Medicine 12/12/20 Juju Leonard MD [address] [facility] [address] [address] [place] [address] Medical Oncologist/Miner Assistant Medical Oncology 08/23/20 documented as of this encounter
--- OUTSIDE RECORDS SUMMARY | 2025-03-23 00:28 | XMS_ITS ---
Author Organization [facility] Address [address] [place] [address] Care Team Providers Care Time Lock Expert Name Role Phone Juju Leonard MD Unavailable [phone]- [phone] Yana Perrin Primary Care Provider [phone]- [phone] Active Problems Patient Care Coordination No te Formatting of this note migh t be different from the original. CAD for BIC Ms. Kaitlynn Hall is a 60-year-old with a lung nodule. Patient has a history of breast cancer status post bilateral mastectomy in 2014. On 09/13/2020 the patient underwent a lung [...] 07/06/2024 Assessment & Plan (07/06/2024 10:57 AM EVISCERATOR): This is a significant, separately identifiable problem [...] 07/06/2024 Assessment & Plan (07/06/2024 10:58 AM EVISCERATOR): This is a significant, separately identifiable problem [...] Added after recieving 04/19/2024 Chest xray from [facility]. Small left pneumothorax There are airspace opacities in ligula, consistent with atelectasis vs pneumonia. I called patient at 6pm and reviewed the results with her after discussing with Dr. Bateman. The radiologist did not provide size of the pneumothorax and with her pneumonia symptoms, unknown when pneumothorax occurred and left sided back pain, will send patient to [facility] for further evaluation/determine definitive care. Instructed patient to bring the medications she filled from the pharmacy with her to the ER. She is in agreement with the plan and will go directly to the ER. I called [facility] and provided a report. Colon cancer screening 02/02/2024 Assessment & Plan (07/06/2024 10:55 AM EVISCERATOR): Patient is past due for colon cancer screening. She had an appointment with Dr. Wilson free has been had to cancel due to the weather. Strongly encouraged her to get this scheduled Assessment & Plan (02/02/2024 6:34 PM CDT): Due for colon cancer screening. Referral made to Dr. Steve Cormier 02/02/2024 Assessment & Plan (07/06/2024 10:56 AM EVISCERATOR): Symptoms are stable with Wellbutrin and Lexapro [...] 02/02/2024 Assessment & Plan (07/06/2024 10:56 AM EVISCERATOR): Symptoms are stable with Wellbutrin and Lexapro [...] 02/02/2024 Assessment & Plan (07/06/2024 10:56 AM EVISCERATOR): Encouraged smoking cessation. Discussed 3 minutes. Reviewed options for assistance with cessation. Reviewed usp sequela associated with smoking. Pt declines assistance at this time but may contact the office at anytime for further help as they desire. She is already on Wellbutrin. Assessment & Plan (02/02/2024 6:31 PM CDT): Encouraged smoking cessation. Discussed 3 minutes. Reviewed options for assistance with cessation. 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 Pt declines assistance at this time but may contact the office at anytime for further help as they desire. 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 [...] 08/25/2023 Assessment & Plan (07/06/2024 10:55 AM EVISCERATOR): Symptoms are stable with Wellbutrin and Lexapro [...] helpful Assessment & Plan (08/25/2023 10:52 AM EVISCERATOR): Patient continues to have depression and grief [...] 03/31/2023 Assessment & Plan (07/06/2024 10:55 AM EVISCERATOR): Bp is stable/in acceptable range for any co-morbidities. Encouraged to limit sodium intake and exercise for weight control. Continue Coreg and losartan and triamterene hydrochlorothiazide Assessment & Plan (02/02/2024 6:33 PM CDT): Bp is stable/in acceptable range for any co-morbidities. Encouraged to limit sodium intake and exercise for weight control. Continue Coreg Assessment & Plan (08/17/2023 1:24 AM EVISCERATOR): Bp is stable/in acceptable range for any co-morbidities. Encouraged to limit sodium intake and exercise for weight control. Continue Coreg 12.5 b.i.d., losartan 100 daily and triamterene hydrochlorothiazide Assessment & Plan (05/31/2023 11:39 PM EVISCERATOR): Bp is stable/in acceptable range for any co-morbidities. Encouraged to limit sodium intake and exercise for weight control. Continue triamterene hydrochlorothiazide 37.5/25 Coronary artery calcification seen on CT scan Fatigue 07/21/2022 Assessment & Plan (07/06/2024 10:56 AM EVISCERATOR): Probably multifactorial. Check labs and followup to re-evaluate Assessment & Plan (02/02/2024 6:33 PM CDT): Probably multifactorial. Check labs and followup to re-evaluate Assessment & Plan (07/21/2022 10:06 PM EVISCERATOR): Discussed the patient's BMI. The BMI is above average. BMI management plan is completed. BMI Follow-up includes: nutrition counseling, exercise counseling and education provided. Emphysema of lung 01/21/2022 Assessment & Plan (07/06/2024 10:54 AM EVISCERATOR): Known COPD. She continues to smoke. Encouraged [...] Mucinex. Assessment & Plan (08/17/2023 1:25 AM EVISCERATOR): Patient with COPD. She follows with Pulmonary and CT surgery and nurse practitioner Davi Garcia. She manages the imaging as well as her Symbicort and albuterol and Mucinex Assessment & Plan (05/31/2023 11:38 PM EVISCERATOR): Continue pulmonary CT surgeon nurse practitioner Davi Garcia. Continue Symbicort and albuterol. She is had a acute cough. Encouraged Tessalon Perles and albuterol p.r.n. if symptoms persist may need to add an antibiotic Assessment & Plan (07/21/2022 10:04 PM EVISCERATOR): Continue per FIELD INVESTIGATOR Davi Garcia. She is following up on the pulmonary nodules. Continue with Symbicort albuterol and Mucinex. Encouraged complete smoking cessation Assessment & Plan (02/11/2022 12:23 PM CDT): Encouraged smoking cessation. Continue inhalers Assessment & Plan (01/21/2022 12:15 AM CDT): Patient with probable COPD due to history of smoking. She has never seen a documentation designer. Recommend referral for evaluation probable PFTs and consider treatment options. Continue currently with Symbicort and albuterol Encourage smoking cessation Primary insomnia 12/16/2020 Assessment & Plan (07/06/2024 10:53 AM EVISCERATOR): Patient continues to use Xanax 0.25 HS [...] helpful Assessment & Plan (08/25/2023 10:53 AM EVISCERATOR): Patient continues to have depression and grief [...] plan. Assessment & Plan (08/17/2023 1:23 AM EVISCERATOR): This is a significant, separately identifiable problem [...] concerns Assessment & Plan (05/19/2023 9:56 AM EVISCERATOR): This is a significant, separately identifiable problem [...] point. Assessment & Plan (07/21/2022 10:03 PM EVISCERATOR): Continue monitor. Patient is on Elavil and [...] options. Assessment & Plan (07/06/2024 10:53 AM EVISCERATOR): History of narcotic addiction in 2017. Patient has remained clean since that point. Assessment & Plan (02/02/2024 6:30 PM CDT): Patient with history of narcotic addiction. Has been clean since 2017. Assessment & Plan (08/17/2023 1:26 AM EVISCERATOR): History of narcotic addiction. Has continued to [...] cm Assessment & Plan (07/06/2024 10:54 AM EVISCERATOR): Patient with known ascending aortic aneurysm. Last [...] 12/12/2020 Assessment & Plan (07/06/2024 10:56 AM EVISCERATOR): Encouraged patient to follow low fat/low chol [...] simvastatin Assessment & Plan (08/17/2023 1:26 AM EVISCERATOR): Encouraged patient to follow low fat/low chol diet like the Mediterranean diet. Increase good fats in the diet. Increase exercise. Monitor labs as needed. Continue simvastatin Assessment & Plan (05/31/2023 11:37 PM EVISCERATOR): Encouraged patient to follow low fat/low chol [...] simvastatin Assessment & Plan (07/21/2022 9:51 PM EVISCERATOR): Encouraged patient to follow low fat/low chol [...] 12/12/2020 Assessment & Plan (07/06/2024 10:52 AM EVISCERATOR): Continue AcipHex p.r.n. she has known history [...] 08/24/2018 Assessment & Plan (07/06/2024 10:51 AM EVISCERATOR): Continue Fosamax on Sundays. Continue calcium vitamin-D and exercise. Next DEXA will be due in 2025 Assessment & Plan (02/02/2024 6:32 PM CDT): Continue with her Fosamax which was started in December. Recheck DEXA in approximately August of 2024. Continue with calcium vitamin-D and exercise Assessment & Plan (08/17/2023 1:27 AM EVISCERATOR): Continue Fosamax. Continue calcium vitamin-D and exercise Assessment & Plan (05/31/2023 11:36 PM EVISCERATOR): Last DEXA in February of 2022. Noted [...] years Assessment & Plan (07/21/2022 9:51 PM EVISCERATOR): Per Dr. Since note her oncologist, it [...] Staging:Pathologic:Stage IA(pT1b, pN0(sn), cM0, G2, ER: Positive, UT: Negative, HER2: Negative) - Signed by Juju Leonard MD on 03/13/2018 Assessment & Plan (12/16/2020 10:34 PM CDT): Continue per ONC On Aromasin Current Treatment and Therapy Plans No current plan information found. Past Treatment and Therapy Plans Oncology Supportive Care Therapy Plan Plan Name Start Date Discontinue Date Treatment Medications Discontinue Reason Plan Provider ZOLEDRONIC ACID (ZOMETA) INFUSION 09/11/2018 02/11/2022 No medications scheduled. Therapy Complete Juju Leonard MD Lifetime Dose Tracking * Chemical Lifetime Dose Automatic Entry Manual Entr y DLP 661 mGycm 661 mGycm 0 mGycm CTDIvol 11.81 mGy 11.81 mGy 0 mGy Resolved Problems Problem Noted Date Diagnosed Date Resolved Date Dizziness 07/06/2024 01/13/2025 Assessment & Plan (07/06/2024 10:57 AM EVISCERATOR): This is a significant, separately identifiable problem [...] with the plan Annual physical exam 07/06/2024 Assessment & Plan (07/06/2024 11:02 AM EVISCERATOR): Encouraged healthy lifestyle, good nutrition and exercise. [...] follow up in the ER. Continue with [id number] supportive therapy Need for influenza vaccination 04/19/2024 [...] 01/13/2025 Assessment & Plan (07/06/2024 10:56 AM EVISCERATOR): Check labs Acute pain of both knees 11/18/2023 Assessment & Plan (11/18/2023 12:07 AM CDT): Patient recently fell directly on her knees. She continued to have discomfort. Will check bilateral knee x-rays and follow up pending those results BMI 24.0-24.9, adult 11/17/2023 025 Assessment & Plan (07/06/2024 9:53 AM EVISCERATOR): Weight/BMI is in healthy range. Continue healthy [...] screening 08/25/2023 08/25/2023 BMI 21.0-21.9, adult 08/25/2023 BMI 22.0-22.9, adult 08/25/2023 024 Assessment & Plan (10/23/2023 7:51 AM CDT): Weight/BMI is in healthy range. Continue healthy lifestyle to maintain. Assessment & Plan (08/25/2023 10:53 AM EVISCERATOR): Weight/BMI is in healthy range. Continue healthy lifestyle to maintain. BMI 20.0-20.9, adult 08/17/2023 024 Assessment & Plan (08/17/2023 1:27 AM EVISCERATOR): Weight/BMI is in healthy range. Continue healthy lifestyle to maintain. Need for vaccination for Strep pneumoniae 08/17/2023 08/25/2023 Assessment & Plan (08/17/2023 1:27 AM EVISCERATOR): Prevnar 20 updated in the office Annual physical exam 05/19/2023 024 Assessment & Plan (08/17/2023 1:27 AM EVISCERATOR): Encouraged healthy lifestyle, good nutrition and exercise. Encouraged Calcium and Vitamin D and weight bearing exercise for bone health. Reviewed immunizations Reviewed age appropirate screenings. Assessment & Plan (05/31/2023 11:40 PM EVISCERATOR): Encouraged healthy lifestyle, good nutrition and exercise. Encouraged Calcium and Vitamin D and weight bearing exercise for bone health. Reviewed immunizations Reviewed age appropirate screenings. Acute pain of right knee 05/19/2023 Assessment & Plan (11/18/2023 12:06 AM CDT): Patient fell on her knees recently. Will x-ray and follow-up pending the results Assessment & Plan (05/31/2023 11:41 PM EVISCERATOR): Patient has pain in the right knee. She fell couple weeks ago. She is still having tenderness and swelling. Will start with an x-ray of the knee and if symptoms persist may need to see orthopedics Rib pain 05/19/2023 08/25/2023 Assessment & Plan (05/31/2023 11:41 PM EVISCERATOR): Check x-ray of ribs. Increased pain since having a fall Acute cough 05/19/2023 08/25/2023 Assessment & Plan (05/31/2023 11:41 PM EVISCERATOR): Persistent cough. Kaylee Gomez sent to pharmacy. [...] 024 Assessment & Plan (08/17/2023 1:24 AM EVISCERATOR): Weight/BMI is in healthy range. Continue healthy lifestyle to maintain. Assessment & Plan (05/19/2023 9:25 AM EVISCERATOR): Weight/BMI is in healthy range. Continue healthy lifestyle to maintain. Assessment & Plan (01/16/2023 10:53 AM CDT): Weight/BMI is in healthy range. Continue healthy lifestyle to maintain. BMI 20.0-20.9, adult 10/10/2022 023 Assessment & Plan (10/10/2022 10:27 AM CDT): Weight/BMI is in healthy range. Continue healthy lifestyle to maintain. COVID-19 05/18/2022 03/21/2023 Overview (05/18/2022): 04/2022 Assessment & Plan (05/18/2022 11:12 PM EVISCERATOR): Let pt know the newest CDC recommendations [...] 07/06/2024 Assessment & Plan (05/18/2022 11:12 PM EVISCERATOR): Let pt know the newest CDC recommendations [...] 05/18/2022 Assessment & Plan (05/18/2022 11:12 PM EVISCERATOR): Let pt know the newest CDC recommendations [...] 07/06/2024 Assessment & Plan (05/18/2022 11:12 PM EVISCERATOR): Let pt know the newest [facility] recommendations are as follows: Positive COVID: Stay [...] 03/21/2023 Assessment & Plan (05/18/2022 11:12 PM EVISCERATOR): Let pt know the newest CDC recommendations [...] labs Assessment & Plan (07/21/2022 10:05 PM EVISCERATOR): Avoid nephrotoxic drugs including NSAIDs. Monitor labs. [...] of this rib fracture. History of pneumothorax 02/11/202202/22 Assessment & Plan (03/31/2022 10:21 AM CDT): [...] worsen. Assessment & Plan (08/25/2023 10:54 AM EVISCERATOR): Flexeril prn Assessment & Plan (09/08/2022 4:05 [...] maintain. Assessment & Plan (07/16/2022 2:03 PM EVISCERATOR): Weight/BMI is in healthy range. Continue healthy [...] daily Assessment & Plan (07/21/2022 9:51 PM EVISCERATOR): Avoid nephrotoxic drugs including NSAIDs. Monitor labs. Bp is stable/in acceptable range for any co-morbidities. Encouraged to limit sodium intake and exercise for weight control. Continue losartan 100, Coreg 12.5 b.i.d. Assessment & Plan (06/22/2021 10:23 PM EVISCERATOR): Bp is stable/in acceptable range for any [...] Reviewed options for assistance with cessation. Reviewed usp sequela associated with smoking. Pt declines assistance at this time but may contact the office at anytime for further help as they desire. Assessment & Plan (08/17/2023 1:26 AM EVISCERATOR): Encouraged smoking cessation. Discussed 3 minutes. Reviewed options for assistance with cessation. Reviewed usp sequela associated with smoking. Pt declines assistance at this time but may contact the office at anytime for further help as they desire. Continue Wellbutrin XL 300 Lexapro Assessment & Plan (05/31/2023 11:38 PM EVISCERATOR): Encouraged smoking cessation. Discussed 3 minutes. Reviewed options for assistance with cessation. 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 Pt declines assistance at this time but may contact the office at anytime for further help as they desire. She is already on Wellbutrin XL 300 Assessment & Plan (01/19/2023 12:42 AM CDT): Encouraged smoking cessation. Discussed 3 minutes. Reviewed options for assistance with cessation. 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 Pt declines assistance at this time but may contact the office at anytime for further help as they desire. Assessment & Plan (10/10/2022 10:34 PM CDT): Encouraged smoking cessation. Discussed 3 minutes. Reviewed options for assistance with cessation. Reviewed usp sequela associated with smoking. Pt declines assistance [...] Reviewed options for assistance with cessation. Reviewed usp sequela associated with smoking. Pt declines assistance at this time but may contact the office at anytime for further help as they desire. Assessment & Plan (04/14/2021 12:04 PM CDT): Encouraged smoking cessation. Discussed 3 minutes. Reviewed options for assistance with cessation. 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 So he working [...] Reviewed options for assistance with cessation. Reviewed usp sequela associated with smoking. Pt declines assistance at this time but may contact the office at anytime for further help as they desire. 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
--- OUTSIDE RECORDS SUMMARY | 2025-03-23 00:28 | XMS_ITS | Clinical Summary ---
Author Organization [facility] Address [address] [place] [address] Phone Care Team Providers Care Sat Instructor Name Role Phone Dottie Hollis MD Primary Care Provider [phone] Allergies Active Allergy Reactions Criticality Noted Date Comments Ciprofloxacin Rash Low 2015 Codeine Swelling Low 01/09/2015 Latex Itching Low 02/15/2015 Morphine Swelling Low 06/15/2015 Penicillins Itching Low 01/09/2015 Soy Rash Low 02/15/2015 Sulfa (Sulfonamide Antibiotics) Itching Low 12/22 Medications aspirin (BRIAN) 325 mg tablet Take 325 mg by mouth daily. 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 Active RABEprazole (ACIPHEX) 20 mg Tablet, Delayed Release (E.C.) Take 20 mg by mouth daily. Active EPINEPHrine (EPIPEN JR) 0.15 mg/0.3 mL (1:2,000) Auto-Injector Inject 0.15 mg by intramuscular injection one time only. Active gabapentin (NEURONTIN) 300 mg capsule Take 600 mg by mouth 3 times daily . Active carisoprodol (SOMA) 350 mg tablet Take 350 mg by mouth every 4 hours as needed . Active simvastatin (ZOCOR) 10 mg tablet Take 10 mg by mouth Daily LATE. Active diphenhydrAMIN E (BENADRYL) 25 mg capsule Take 25 mg by mouth every 6 hours as needed for Allergies. Active FOLIC ACID/MULTIVIT- MIN/LUTEIN (CENTRUM SILVER ORAL) Take by mouth. Ac tive losartan (COZAAR) 25 mg tablet Take 25 mg by mouth daily. Active buPROPion HCl (WELLBUTRIN SR) 150 mg Sustained Release 12 hour tablet Take 150 mg by mouth 2 times daily. Active albuterol HFA 90 mcg inhaler Take 2 Puffs by inhalation every 6 hours as needed for Shortness of Breath. Active oxyCODONE-acet aminophen (PERCOCET) 10-325 mg Tablet Take 1 Tablet by mouth every 4 hours as needed for Pain, Severe Take a half a tablet for mild pain, and one tablet for severe pain. Max Daily Amount: 6 Tablet 50 Tablet 0 5 Active letrozole (FEMARA) 2.5 mg Tablet TAKE ONE TABLET BY MOUTH ONE TIME DAILY 30 Tablet 7 Active fentaNYL (DURAGESIC) 12 mcg/hr patch Apply 1 Patch to skin as directed every third day. Active fentaNYL (DURAGESIC) 25 mcg/hr patch Apply 1 Patch to skin as directed every third day. Active eszopiclone (LUNESTA) 3 mg Tablet Take 3 mg by mouth nightly as needed for Insomnia. Active clonazePAM (KlonoPIN) 0.5 mg Tablet Take 0.5 mg by mouth 2 times daily as needed for Anxiety. Active letrozole (FEMARA) 2.5 mg Tablet Take 1 Tablet (2.5 mg) by mouth daily. 30 Tablet 6 7 Active Active Problems Patient Care Coordination No te Formatting of this note migh t be different from the original. Primary Care: Dottie Hlolis MD (General) [place] [id number] [facility] [address] [place] [address] Other: Dr Katelynn Wilson Problem Noted Date Diagnosed Date Absence of breast, acquired 03/23/2015 Tobacco use 03/08/2015 Tobacco use 03/08/2015 Malignant neoplasm of female breast 01/10/2015 Overview (01/19/2015): 12/2014; Right Breast Invasive Lobular Carcinoma; ER positive; SC negative; HER-2 negative; clinical stage I-T1, N0, M0 Family History Medical History Relation Name Comments Cancer Father Pancreatic Cancer Father Cancer Maternal Grandfather 60's non hod gkins lymphoma Colon Cancer Maternal Grandmother 60's Heart Disease Paternal Grandfather Breast Cancer Sister 1 Cancer Sister 2 non hodgkins ly mphoma Relation Name Status Comments Brother Alive Father Maternal Grandfather 60's Maternal Grandmother 60's Mother Paternal Grandfather Sister 1 (Age 66) 10/26/2014 Sister 2 Alive Social History Tobacco Use Types Packs/Day Years Used Date Smoking Tobacco: Every Day Cigarettes Smokeless Tobacco: Never Tobacco Cessation:Counseling Given: No Alcohol Use Standard Drinks/Week Comments Yes 0 (1 standard drink = 0.6 oz pur e alcohol) rare Comments No Sex and Gender Information Value Date Recorded Sex Assigned at Not on file Legal Sex Female 8:51 AM CDT Gender Identity Not on file Sexual Orientation Not on file Last Filed Vital Signs Vital Sign Reading Time Taken Comments Blood Pressure 130/77 12/03/2016 11:35 AM CDT Pulse 78 12/03/2016 11:35 AM CDT Temperature 36.9 C (98.4 F) 12/03/2016 11:35 AM CDT Respiratory Rate 18 12/03/2016 11:35 AM CDT Oxygen Saturation 94% 06/21/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 Oxygen Concentration - - Weight 67.7 kg (149 lb 3.2 oz) 12/03/2016 11:35 AM CDT Height 174 cm (5' 8.5) 12/03/2016 11:35 AM CDT Body Mass Index 22.36 12/03/2016 11:35 AM CDT Plan of Treatment Health Maintenance Due Date Last Done Comments DTAP/TDAP/TD VACCINES (1 - Tdap) 1977 COLORECTAL SCREENING 2003 Colorectal Cancer Screening 2003 FIT-DNA Q 3 years 2003 FIT/FOBT Q 1 year 2003 Flex Sig/CT Colonography Q 5 years 2003 PNEUMOCOCCAL VACCINE 50+ YEA RS (1 of 1 - PCV) 01/31/2008 ZOSTER VACCINE (1 of 2) 01/31/2008 BREAST CANCER SCREENING 01/10/2016 01/10/20 15, 01/05/2015, 12/26/2014, Additional history exists OSTEOPOROSIS SCREENING 2023 INFLUENZA VACCINE (#1) 2025 RSV VACCINE (60+ or ) (1 - 1-dose 75+ series) 2033 Medical Devices Implanted Type Area Water Conservationist Device Identifier Shelf Expiration Date Model / Serial / Lot Mmmry Slcn Smth Rnd Hp [id number] - [id number] Implanted:Qty: 1 on 06/21/2015 by Cayetano Ortiz MD at [facility] [place], [place] Right: Breast MENTOR DANIA 05/03/2020 [id number] / [id number] / [id number] Mmmry Slcn Smth Rnd Hp [id number] - [id number] Implanted:Qty: 1 on 06/21/2015 by Cayetano Ortiz MD at [facility] [place], [place] Left: Breast MENTOR DANIA 05/03/2020 [id number] / [id number] / [id number] Explanted Type Area Water Conservationist Device Identifier Shelf Expiration Date Model / Serial / Lot Brass Cutter Mmry Tab 400ml [id number]-12-[id number] - [id number] Implanted:Qty : 1 on 02/15/2015 by Cayetano Ortiz MD at [facility] [place] Explanted:Qty : 1 on 06/21/2015 at [facility] [place] Mammary Right: Breast [employer] 09/07/2018 [id number]-12-[id number] / [id number] / Brass Cutter Mmry Tab 400ml [id number]-12-[id number] - [id number] Implanted:Qty : 1 on 02/15/2015 by Cayetano Ortiz MD at [facility] [place] Explanted:Qty : 1 on 06/21/2015 at [facility] [place] Mammary Left: Breast [employer] 03/22/2017 133MX-12-T / [id number] / Procedures Procedure Name Priority Date/Time Associated Diagnosis Comments MAMMO DIAGNOSTIC UNI RIGHT W OR WO CAD Routine 01/09/2015 1:38 PM CDT Breast mass, right from Last 3 Months or Most Recently Relevant to Health Maintenance Results * MAMMO DIGITAL DIAG UNI RIGHT (01/09/2015 1:38 PM CDT) Anatomical Region Laterality Modality Breast Right Mammography 01/09/2015 1:20 PM CDT Impressions 01/10/2015 9:08 AM CDT IMPRESSION: Technically successful ultrasound-guided core biopsy with tissue marker placement. Dictated from Nedra Pascual Narrative 01/10/2015 9:08 AM CDT ULTRASOUND-GUIDED CORE BIOPSY OF THE RIGHT BREAST, TISSUE MARKER CLIP PLACEMENT, UNILATERAL DIGITAL MAMMOGRAM DATE: 01/09/15 HISTORY: Right breast mass. Ultrasound-guided core biopsy has been recommended PROCEDURE AND FINDINGS: The risks and potential benefits of the procedure were discussed with the patient and written informed was obtained. After sterile preparation of the skin, 1% lidocaine without epinephrine was utilized for local anesthesia. A 10 gauge vacuum-assisted core biopsy needle was advanced through the lesion of interest using sonographic guidance. A total of 2 tissue cores were obtained throughout the lesion. A tissue marker clip was then placed at the biopsy site under ultrasound guidance. Hemostasis was achieved. A sterile bandage and an ice pack were applied. A two-view right unilateral digital mammogram was obtained post procedure and this demonstrates that the tissue marker clip is in the expected position. The patient tolerated the procedure well and there was no evidence of immediate complication. The patient was given verbal as well as written postprocedure instructions prior to the release from the department. The tissue cores were submitted to surgical pathology in formalin for histological analysis. Procedure Note Claudia Pete MD - 01/10/2015 ULTRASOUND-GUIDED CORE BIOPSY OF THE RIGHT BREAST, TISSUE MARKER CLIP PLACEMENT, UNILATERAL DIGITAL MAMMOGRAM DATE: 01/09/15 HISTORY: Right breast mass. Ultrasound-guided core biopsy has been recommended PROCEDURE AND FINDINGS: The risks and potential benefits of the procedure were discussed with the patient and written informed was obtained. After sterile preparation of the skin, 1% lidocaine without epinephrine was utilized for local anesthesia. A 10 gauge vacuum-assisted core biopsy needle was advanced through the lesion of interest using sonographic guidance. A total of 2 tissue cores were obtained throughout the lesion. A tissue marker clip was then placed at the biopsy site under ultrasound guidance. Hemostasis was achieved. A sterile bandage and an ice pack were applied. A two-view right unilateral digital mammogram was obtained post procedure and this demonstrates that the tissue marker clip is in the expected position. The patient tolerated the procedure well and there was no evidence of immediate complication. The patient was given verbal as well as written postprocedure instructions prior to the release from the department. The tissue cores were submitted to surgical pathology in formalin for histological analysis. IMPRESSION IMPRESSION: Technically successful ultrasound-guided core biopsy with tissue marker placement. Dictated from Nedra Pascual Katelynn Wilson MD MAMMO ORDERABLES Final Result from Last 3 Months or Most Recently Relevant to Health Maintenance Advance Directives For more information, please contact: [phone] * Full Code (Latest Code Status on File) Date Activated Date Inactivated Comments 06/21/2015 1:07 PM 06/21/2015 7:41 PM * Full Code Date Activated Date Inactivated Comments 02/15/2015 1:47 PM 02/16/2015 3:48 PM * Full Code Date Activated Date Inactivated Comments 02/15/2015 8:28 AM 02/15/2015 1:47 PM * Full Code Date Activated Date Inactivated Comments 02/15/2015 7:45 AM 02/15/2015 8:28 AM Care Teams Sat Instructor Relationship Specialty Start Date End Date Dottie Hollis MD [address] [address] PCP - General 06/09/15
[2025-03-23 10:15] VITALS: BP 145/78; PULSE 69; RESP 18; TEMP 36.8; O2SAT 99; BMI 25.0
[2025-03-23] MEDS: LACTATED RINGERS 1,000 ML 150 ML IV CONT (10:18)
--- NOTE | 2025-03-23 10:26 | WPDANESEPPF ---
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, Screening Patient Data Age: 65 Gender: F Height: 1.75 m Weight: 77 kg Last Vital Signs Temp 36.8 C 03/23/25 10:15 Pulse 69 03/23/25 10:15 Resp 18 03/23/25 10:15 BP 145/78 H 03/23/25 10:15 Pulse Ox 99 03/23/25 10:15 O2 Del Method Room Air 03/23/25 10:15 Allergies Allergy/AdvReac Type Severity Reaction Status Date / Time latex Allergy Intermediate RASH Verified 03/23/25 10:12 hydrocodone Allergy Mild RASH Verified 03/23/25 10:12 ciprofloxacin Allergy Unknown Unknown Verified 03/23/25 10:12 codeine Allergy Unknown Unknown Verified 03/23/25 10:12 Penicillins Allergy Unknown Unknown Verified 03/23/25 10:12 Pork Allergy Mild SWELLING Uncoded 04/27/24 13:18 Soy Protein Allergy Mild SWELLING Uncoded 04/27/24 13:18 Home Medications ?Medication ?Instructions ?Recorded ?Confirmed ?Type Benadryl 25 mg PO DAILY 02/04/22 03/11/25 History Colace 100 mg PO DAILY PRN constipation 02/04/22 03/11/25 History albuterol sulfate 90 mcg/actuation 90 mcg inhalation PRN PRN 02/04/22 03/11/25 History aerosol inhaler Shortness Of Breath amitriptyline 100 mg tablet 100 mg PO DAILY 02/04/22 03/11/25 History bupropion HCl 150 mg 24 hr tablet, 150 mg PO DAILY 02/04/22 03/23/25 History extended release carvedilol 6.25 mg tablet 12.5 mg PO BID 02/04/22 03/23/25 History celecoxib 100 mg capsule 100 mg BID 02/04/22 04/27/24 History cyclobenzaprine 5 mg PO PRN PRN muscle spasms 02/04/22 03/11/25 History ibuprofen 200 mg PO Q6H PRN Pain 02/04/22 03/11/25 History losartan 50 mg tablet 50 mg PO DAILY 02/04/22 03/23/25 History rabeprazole 20 mg tablet,delayed 20 mg PO DAILY 02/04/22 03/11/25 History release simvastatin 10 mg tablet 10 mg PO DAILY 02/04/22 03/23/25 History benzonatate 200 mg capsule 200 mg PO TID PRN cough #21 caps 04/19/24 03/11/25 Rx Patient hx anesthesia problems: none Family hx anesthesia problems: none Results Review: All pre-operative results and documents have been reviewed as part of the pre-operative evaluation. [facility] Past Medical History Medical History Hyperlipidemia Hypertension History of breast cancer Anxiety Depression Fibromyalgia Endometriosis Diverticulitis Mitral valve prolapse Barretts esophagus Migraines Surgical History Surgical History H/O breast reconstruction S/P transposition of nerve History of D&C History of section, classical H/O bilateral mastectomy History of hysterectomy History of appendectomy History of cholecystectomy Family History Family History Sibling Family history of gallbladder disease Hypertension Family history of lymphoma Family history of malignant neoplasm of breast in first degree relative Mother Asthma Father Family history of pancreatic cancer Other Cerebrovascular accident Diabetes mellitus Family history of cardiovascular disease Social History Social History Social History: the patient stated that she his down to 1 cigarette a day. She has 1 daughter. she does not have a durable power county attorney for healthcare. she is . 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 Smoking packs per day: 0.5 Smoking cigarettes per day: 10.0 Smoking status: Current every day smoker Tobacco type: cigarettes Alcohol intake: current Alcohol use details: socially Substance use type: does not use Living arrangements: with family Spiritual care concerns: No Anes - Eval Final PreProcedure Day of Procedure 03/23/25 10:26 Patient weight: normal Heart: regular rate and rhythm Lungs: clear to auscultation Airway: Mallampati scale class II Neurological: alert and oriented Last oral intake: >/= 8 hours ASA classification: III Emergent: no Anesthetic plan: proceed Anesthesia type and monitoring: general GIVS and standard monitoring Results Review: All pre-operative results and documents have been reviewed as part of the pre-operative evaluation. Informed Consent: The patient's anesthetic plan and its attendant risks and benefits were discussed with the patient/family/POA. Questions were solicited and answers provided to the satisfaction of the patient/family/POA.
--- NOTE | 2025-03-23 10:45 | PM.HPGS ---
History of Present Illness History of Present Illness Consent: Risks, benefits, and alternatives have been discussed and questions answered. Patient agrees to proceed with procedure. 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 Review of Systems Review of Systems: All systems reviewed & are unremarkable except as noted in HPI and below PMFSH Past Medical History Medical History (Updated 03/23/25 @ 10:47 by Malachi Vigil MD) Colon cancer screening GERD (gastroesophageal reflux disease) Hyperlipidemia Hypertension History of breast cancer Anxiety Depression Fibromyalgia Endometriosis Diverticulitis Mitral valve prolapse Barretts esophagus Migraines Surgical History Surgical History H/O breast reconstruction S/P transposition of nerve History of D&C History of section, classical H/O bilateral mastectomy History of hysterectomy History of appendectomy History of cholecystectomy Family History Family History Sibling Family history of gallbladder disease Hypertension Family history of lymphoma Family history of malignant neoplasm of breast in first degree relative Mother Asthma Father Family history of pancreatic cancer Other Cerebrovascular accident Diabetes mellitus Family history of cardiovascular disease Social History Social History Social History: the patient stated that she his down to 1 cigarette a day. She has 1 daughter. she does not have a durable power admitted attorneys for healthcare. she is . 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 Smoking packs per day: 0.5 Smoking cigarettes per day: 10.0 Smoking status: Current every day smoker Tobacco type: cigarettes Alcohol intake: current Alcohol use details: socially Substance use type: does not use Living arrangements: with family Spiritual care concerns: No Meds Home Medications and Allergies Home Medications ?Medication ?Instructions ?Recorded ?Confirmed ?Type Benadryl 25 mg PO DAILY 02/04/22 03/11/25 History Colace 100 mg PO DAILY PRN constipation 02/04/22 03/11/25 History albuterol sulfate 90 mcg/actuation 90 mcg inhalation PRN PRN 02/04/22 03/11/25 History aerosol inhaler Shortness Of Breath amitriptyline 100 mg tablet 100 mg PO DAILY 02/04/22 03/11/25 History bupropion HCl 150 mg 24 hr tablet, 150 mg PO DAILY 02/04/22 03/23/25 History extended release carvedilol 6.25 mg tablet 12.5 mg PO BID 02/04/22 03/23/25 History celecoxib 100 mg capsule 100 mg BID 02/04/22 04/27/24 History cyclobenzaprine 5 mg PO PRN PRN muscle spasms 02/04/22 03/11/25 History ibuprofen 200 mg PO Q6H PRN Pain 02/04/22 03/11/25 History losartan 50 mg tablet 50 mg PO DAILY 02/04/22 03/23/25 History rabeprazole 20 mg tablet,delayed 20 mg PO DAILY 02/04/22 03/11/25 History release simvastatin 10 mg tablet 10 mg PO DAILY 02/04/22 03/23/25 History benzonatate 200 mg capsule 200 mg PO TID PRN cough #21 caps 04/19/24 03/11/25 Rx Allergies Allergy/AdvReac Type Severity Reaction Status Date / Time latex Allergy Intermediate RASH Verified 03/23/25 10:12 hydrocodone Allergy Mild RASH Verified 03/23/25 10:12 ciprofloxacin Allergy Unknown Unknown Verified 03/23/25 10:12 codeine Allergy Unknown Unknown Verified 03/23/25 10:12 Penicillins Allergy Unknown Unknown Verified 03/23/25 10:12 Pork Allergy Mild SWELLING Uncoded 04/27/24 13:18 Soy Protein Allergy Mild SWELLING Uncoded 04/27/24 13:18 Vital Signs Vital Signs - 24 hr 03/23/25 10:15 Temperature 98.2 F Pulse Rate 69 Respiratory Rate 18 Blood Pressure 145/78 H Pulse Oximetry 99 Oxygen Delivery Room Air Exam Const: General: comfortable and no acute distress HENMT: Face/Nose/Sinus: Normal nares present Eyes: General: appearance normal, both eyes and all related structures Resp: Auscultation: clear to auscultation bilaterally Cardio: Rate: regular rate Rhythm: regular rhythm GI: Inspection: non-distended GI Palp: Yes Soft to palpation Skin: General skin exam: normal color Extrem: General: normal to inspection Psych: Mental Status: mental status grossly normal Assessment and Plan Assessment and plan (1) GERD (gastroesophageal reflux disease): Code(s): K21.9 - Gastro-esophageal reflux disease without esophagitis Status: Acute Assessment and Plan: egd (2) Colon cancer screening: Code(s): Z12.11 - Encounter for screening for malignant neoplasm of colon Status: Acute Assessment and Plan: colonoscopy
--- NOTE | 2025-03-23 10:59 | S_PTH ---
PATIENT: Kaitlynn Hall LOC: [facility]#:[id number] AGE/SX: 65/F ROOM: RE03/23/[address]: Malachi Vigil MD : 1960 BED: DIS: 03/23/2025 SPEC #: [id number] RECD: 03/23/25 12:09 STATUS: LAVERN HANSEN #: [id number] MADAN: 03/23/25 10:[address]: Malachi Vigil DEPT: [facility] Surgical RECD BY: Delores Chen ENTERED: 03/23/25 12:10 SP TYPE: Surgical OTHR DR: Yana Perrin, PA Tissues: A - Gastric Biopsy B - Esophageal Biopsy C - Colon Polypectomy Procedures: Hematoxylin and Eosin Stain Gross and Microscopic Level 4
--- NOTE | 2025-03-23 11:04 | SUR.OPER ---
EGD: ended 1099, COLON: started 1103
[2025-03-23 11:25] VITALS: BP 116/66; PULSE 59; RESP 15; O2SAT 99
[2025-03-23 11:35] VITALS: BP 127/62; PULSE 57; RESP 17; O2SAT 98
[2025-03-23 11:45] VITALS: BP 125/76; PULSE 59; RESP 22; O2SAT 100
== END 2025-03-23 12:01 | disposition home or self-care (01) ==
PROVIDERS: PCP Physician Assistant; Referring Provider Physician Assistant; Visit Provider Internal Medicine Gastroenterology
PROC: 0DJ08ZZ Inspection of Upper Intestinal Tract, Via Natural or Artificial Opening Endoscopic (ICD-10-PCS; CPT 45378; principal; 2025-03-23 11:30)
DX: Z12.11 Encounter for screening for malignant neoplasm of colon (principal); D12.3 Benign neoplasm of transverse colon; K57.30 Diverticulosis of large intestine without perforation or abscess without bleeding; K22.70 Barrett's esophagus without dysplasia; K21.9 Gastro-esophageal reflux disease without esophagitis; E78.5 Hyperlipidemia, unspecified; I10 Essential (primary) hypertension; F41.9 Anxiety disorder, unspecified; F32.A Depression, unspecified; M79.7 Fibromyalgia; N80.9 Endometriosis, unspecified; F17.210 Nicotine dependence, cigarettes, uncomplicated; Z79.51 Long term (current) use of inhaled steroids; Z79.1 Long term (current) use of non-steroidal anti-inflammatories (NSAID); Z98.890 Other specified postprocedural states; Z90.49 Acquired absence of other specified parts of digestive tract; Z90.13 Acquired absence of bilateral breasts and nipples; Z85.3 Personal history of malignant neoplasm of breast; Z86.79 Personal history of other diseases of the circulatory system; Z80.7 Family history of other malignant neoplasms of lymphoid, hematopoietic and related tissues; Z80.3 Family history of malignant neoplasm of breast; Z80.0 Family history of malignant neoplasm of digestive organs; Z82.49 Family history of ischemic heart disease and other diseases of the circulatory system
CPT/HCPCS: 43239; 45385; 88305; J2003; J2704; J7120